=== PATIENT | female | born 1945 | race African-American/Black ===

== ENCOUNTER → 2020-08-13 09:21 | Outpatient (BNVA) | payer MEDICARE, SELFPAY | PROVIDERS: Visit Provider Advanced Practice Midwife ==

== ENCOUNTER 2020-08-22 09:49 | Outpatient (REF) | payer MEDICARE, SELFPAY | END 2020-08-22 09:50 | disposition home or self-care (01) | LOC: HO.LAB 09:49 | PROVIDERS: PCP Internal Medicine; Visit Provider Obstetrics & Gynecology | DX: L29.2 Pruritus vulvae (principal) | CPT/HCPCS: 56605; 88305; 88312 ==

== ENCOUNTER → 2020-09-04 09:24 | Outpatient (BNVA) | payer MEDICARE, SELFPAY | PROVIDERS: Visit Provider Obstetrics & Gynecology | DX: L90.0 Lichen sclerosus et atrophicus (principal) | CPT/HCPCS: Q3014 ==

== ENCOUNTER → 2020-11-19 09:07 | Outpatient (REF) | payer MEDICARE, SELFPAY ==
--- NOTE | 2020-11-19 09:18 | ECG_ITS ---
Test Reason : UNSTABLE ANGINA Blood Pressure : / mmHG Vent. Rate : 083 BPM Atrial Rate : 071 BPM P-R Int : 000 ms QRS Dur : 088 ms QT Int : 388 ms P-R-T Axes : 000 -41 060 degrees QTc Int : 455 ms Normal sinus rhythm with Premature atrial complexes Left axis deviation Abnormal ECG No previous ECGs available Referred By: Martha Gibbs Electronically Signed By:LANA SCHOFIELD MD
[2020-11-19 09:58] LABS: MANUAL DIFF FLAG SCAN; Mean Corpuscular Hemoglobin 22.8 pg (27.0-33.0); Mean Corpuscular Volume 75.2 fL (80-98); Neutrophils Absolute Auto 2.5 X10*3/uL (2.0-8.3); SCAN SMEAR FLAG 1
[2020-11-19 10:00] LABS: Basophils Percent Auto 0.4 % (0-2); Eosinophils Absolute Auto 0.4 X10*3/uL (0.0-0.4); Eosinophils Percent Auto 8.8 % (0-4); Hematocrit 37.9 % (37-47); Hemoglobin 11.5 g/dl (12.0-16.0); Imm Gran Abs Auto 0.01 X10*3/uL (0.00-0.03); Imm Gran Pct Auto 0.2 % (0.0-0.4); Lymphocytes Absolute Auto 1.6 X10*3/uL (1.2-4.9); Lymphocytes Percent Auto 32.7 % (20-40); Mean Corpuscular HGB Conc 30.3 g/dl (31.0-35.0); Monocytes Absolute Auto 0.3 X10*3/uL (0.1-1.2); Monocytes Percent Auto 6.5 % (2-11); Neutrophils Percent Auto 51.4 % (45-73); Red Blood Count 5.04 X10*6/uL (4.20-5.50); Red Cell Distribution Width 16.9 % (11.0-16.0); White Blood Count 4.8 X10*3/uL (4.8-10.8)
[2020-11-19 10:06] LABS: PLT ABN DIST 1
[2020-11-19 10:28] LABS: Alanine Aminotransferase 54 U/L (0-31); Albumin Level 4.1 g/dL (3.5-5.0); Alkaline Phosphatase 108 U/L (39-117); Anion Gap 11 (12-20); Aspartate Amino Transferase 82 U/L (5-31); Bilirubin Total 0.4 mg/dL (0.0-1.0); Blood Urea Nitrogen 9 mg/dL (9-16); Carbon Dioxide 28 mmol/L (22-29); Chloride 106 mmol/L (96-108); Cholesterol 127 mg/dL; Estimated Glomerular Filt Rate > 60; Glucose Fasting 124 mg/dL (60-99); HDL Cholesterol 39 mg/dL; LDL Cholesterol Calculated 74 mg/dl; Potassium 4.2 mmol/L (3.3-5.1); Sodium 141 mmol/L (135-145); Total Protein 7.2 g/dL (6.5-8.0); Triglycerides 74 mg/dL
[2020-11-19 10:53] LABS: Platelet Count 185 X10*3/uL (160-400)
[2020-11-19 10:54] LABS: SLIDE REVIEW VERIFIED
[2020-11-29 19:32] LABS: Vitamin D 25-OH, D2 <4 ng/mL; Vitamin D 25-OH, D3 31 ng/mL; Vitamin D 25-OH, Total 31 ng/mL (30-100)
== END ==
LOC: HO.CARD 09:07
PROVIDERS: PCP Internal Medicine; Visit Provider Internal Medicine
DX: I20.0 Unstable angina (principal); E55.9 Vitamin D deficiency, unspecified; K21.9 Gastro-esophageal reflux disease without esophagitis; D64.9 Anemia, unspecified; E78.5 Hyperlipidemia, unspecified
CPT/HCPCS: 36415; 80053; 80061; 82306; 85025; 93005

== ENCOUNTER → 2020-11-25 10:30 | Outpatient (BNVA) | payer MEDICARE, SELFPAY | PROVIDERS: PCP Internal Medicine; Visit Provider Obstetrics & Gynecology | DX: L90.0 Lichen sclerosus et atrophicus (principal) | CPT/HCPCS: 99212 ==

== ENCOUNTER 2020-12-17 08:44 | Outpatient (REF) | payer MEDICARE, SELFPAY | END 2020-12-17 08:45 | disposition home or self-care (01) | LOC: HO.LAB 08:44 | PROVIDERS: PCP Internal Medicine; Visit Provider Internal Medicine Pulmonary Disease | DX: Z91.09 Other allergy status, other than to drugs and biological substances (principal); J45.50 Severe persistent asthma, uncomplicated; K21.9 Gastro-esophageal reflux disease without esophagitis | CPT/HCPCS: 36415; 82785; 86003; 99202 ==

== ENCOUNTER 2021-01-22 08:53 | Outpatient (REF) | payer MEDICARE, SELFPAY ==
--- NOTE | 2021-01-22 17:17 | PFT_ITS ---
Forced vital capacity is normal. FEV1 is slightly decreased. LAX28-25 and MVV moderately decreased. Post bronchodilator therapy, there is a significant improvement in FEV1, ECX73-95, and MVV. Total lung capacity and residual volume are normal. Diffusion capacity normal. CONCLUSION: Mild obstructive airway disorder. Good response to bronchodilator therapy. These findings consistent with asthma/COPD overlap syndrome. Clinical correlation recommended. MD KIT Anne/BEAU / [id number]
== END 2021-01-22 08:54 | disposition home or self-care (01) ==
LOC: HO.RESP 08:53
PROVIDERS: PCP Internal Medicine; Visit Provider Internal Medicine Pulmonary Disease
DX: J45.50 Severe persistent asthma, uncomplicated (principal)
CPT/HCPCS: 94060; 94727; 94729

== ENCOUNTER 2021-01-28 08:45 | Outpatient (REF) | payer MEDICARE, SELFPAY ==
[2021-01-28 09:56] LABS: Basophils Percent Auto 0.1 % (0-2)
[2021-01-28 09:57] LABS: Hematocrit 34.6 % (37-47); Hemoglobin 10.7 g/dl (12.0-16.0); Imm Gran Abs Auto 0.08 X10*3/uL (0.00-0.03); Imm Gran Pct Auto 1.1 % (0.0-0.4); Lymphocytes Absolute Auto 1.4 X10*3/uL (1.2-4.9); Lymphocytes Percent Auto 19.6 % (20-40); Mean Corpuscular HGB Conc 30.9 g/dl (31.0-35.0); Mean Corpuscular Hemoglobin 22.4 pg (27.0-33.0); Mean Corpuscular Volume 72.4 fL (80-98); Monocytes Absolute Auto 0.3 X10*3/uL (0.1-1.2); Monocytes Percent Auto 3.7 % (2-11); Neutrophils Absolute Auto 5.5 X10*3/uL (2.0-8.3); Neutrophils Percent Auto 75.5 % (45-73); Platelet Count 190 X10*3/uL (160-400); Red Blood Count 4.78 X10*6/uL (4.20-5.50); Red Cell Distribution Width 16.7 % (11.0-16.0); White Blood Count 7.3 X10*3/uL (4.8-10.8)
[2021-01-28 10:27] LABS: Alanine Aminotransferase 35 U/L (0-31); Albumin Level 4.2 g/dL (3.5-5.0); Alkaline Phosphatase 117 U/L (39-117); Anion Gap 13 (12-20); Aspartate Amino Transferase 34 U/L (5-31); Bilirubin Total 0.6 mg/dL (0.0-1.0); Blood Urea Nitrogen 12 mg/dL (9-16); Calcium 9.6 mg/dL (8.4-10.2); Carbon Dioxide 26 mmol/L (22-29); Chloride 107 mmol/L (96-108); Cholesterol 132 mg/dL; Estimated Glomerular Filt Rate > 60; Glucose Fasting 156 mg/dL (60-99); HDL Cholesterol 47 mg/dL; LDL Cholesterol Calculated 77 mg/dl; Potassium 3.9 mmol/L (3.3-5.1); Sodium 142 mmol/L (135-145); Total Protein 7.3 g/dL (6.5-8.0); Triglycerides 43 mg/dL
[2021-01-28 10:47] LABS: Thyroid Stimulating Hormone 0.57 uIU/mL (0.32-4.0)
[2021-01-28 11:06] LABS: Creatinine Urine 76.78 mg/dL; Microalbum/Creatinine Ratio Ur 96.3 ug/mg cr
[2021-01-28 11:21] LABS: Folate 17.4 ng/mL (> or = 4.0); Vitamin B12 255 pg/mL (200-900)
[2021-02-01 17:11] LABS: Vitamin D 25-OH, D2 <4 ng/mL; Vitamin D 25-OH, D3 23 ng/mL; Vitamin D 25-OH, Total 23 ng/mL (30-100)
== END 2021-01-28 08:46 | disposition home or self-care (01) ==
LOC: HO.LAB 08:45
PROVIDERS: Absent Provider Internal Medicine; PCP Internal Medicine; Visit Provider Internal Medicine Pulmonary Disease
DX: J45.50 Severe persistent asthma, uncomplicated (principal); E11.9 Type 2 diabetes mellitus without complications; R41.89 Other symptoms and signs involving cognitive functions and awareness; D64.9 Anemia, unspecified; E78.5 Hyperlipidemia, unspecified; E55.9 Vitamin D deficiency, unspecified; Z91.09 Other allergy status, other than to drugs and biological substances
CPT/HCPCS: 36415; 80053; 80061; 82043; 82306; 82607; 82746; 84443; 85025; 99212

== ENCOUNTER → 2021-02-02 09:01 | Outpatient (BNVA) | payer MEDICARE, SELFPAY | PROVIDERS: Visit Provider Advanced Practice Midwife | DX: L90.0 Lichen sclerosus et atrophicus (principal) | CPT/HCPCS: 99212 ==

== ENCOUNTER → 2021-02-10 08:36 | Outpatient (BNVA) | payer MEDICARE, SELFPAY | PROVIDERS: PCP Internal Medicine; Visit Provider Internal Medicine Pulmonary Disease | DX: J45.50 Severe persistent asthma, uncomplicated (principal); Z91.09 Other allergy status, other than to drugs and biological substances | CPT/HCPCS: 99212 ==

== ENCOUNTER 2021-02-23 09:05 | Emergency (ER) | payer MEDICARE, SELFPAY ==
[2021-02-23 09:45] VITALS: BP 139/75; PULSE 69; RESP 19; TEMP 36.4; O2SAT 98; BMI 38.6
--- NOTE | 2021-02-23 10:01 | ED.SKABFB ---
HPI - Skin/Abscess/Foreign Bdy General Chief complaint: General Medical Stated complaint: ?insect bites all over Time Seen by Provider: 02/23/21 09:54 Source: patient Mode of arrival: ambulatory Limitations: no limitations History of Present Illness HPI narrative: 75-year-old female presenting with her [employer] with complaints of insect bites for the past month. Reports that she goes outside to feed pigeons and she believes that she is getting bit when she is feeding the birds/pigeons. She also reports she has 2 dogs at home. Although [employer] reports that the dog's appear to be fine no signs of fleas. The [employer] also had similar symptoms although he treated himself with a cream to his body he reports and it resolved all his symptoms. He reports that the house was fumigated although the patient continues to have itchiness and appears to have new bites due to she continues to go outside and she does not want to get rid of her dogs either. Denies any other symptoms complaints or concerns. MD complaint: insect bite/sting Onset (ago): month(s) (One month) Location: generalized Severity: moderate Quality: constant and pruritic Pain Consistency: constant Relieving factors: none Exacerbating factors: none Context: other (Possible insect bites) Associated symptoms: denies other symptoms Treatments prior to arrival: OTC topical medication and Benadryl Related Data Home Medications Medication Instructions Recorded Confirmed amlodipine 10 mg tablet 10 mg PO QAM 08/13/20 01/27/21 aspirin 81 mg tablet,delayed 81 mg PO DAILY 08/13/20 01/27/21 release calcium carbonate 500 mg calcium 0 mg PO 08/13/20 01/27/21 (1,250 mg) tablet paroxetine HCl 20 mg tablet 20 mg PO QAM 08/13/20 01/27/21 simvastatin 20 mg tablet 20 mg PO BEDTIME 08/13/20 01/27/21 alcohol swabs 0 pad TOPICAL 08/19/20 01/27/21 cholecalciferol (vitamin D3) 50 50 mcg PO DAILY 08/19/20 01/27/21 mcg (2,000 unit) capsule dulaglutide 1.5 mg/0.5 mL 1.5 mg SUBCUT QWEEK 08/19/20 01/27/21 subcutaneous pen injector lancets 33 gauge #100 ea 08/19/20 01/27/21 metformin 500 mg tablet 500 mg PO BID tab 08/29/20 01/27/21 Previous Rx's Medication Instructions Recorded nitroglycerin 0.4 mg sublingual 0.4 mg SUBLINGUAL Q5M PRN 30 Days 11/18/20 tablet (Nitrostat) #90 tab hydroxyzine HCl 10 mg tablet 10 mg PO BEDTIME #90 tab 11/25/20 fluticasone fur. 200 mcg-umeclid 1 inh INHALATION DAILY 30 Days #28 11/28/20 62.5 mcg-vilant 25 mcg ea inhalat.powder (Trelegy Ellipta) alprazolam 0.5 mg tablet 0.5 mg PO BEDTIME PRN 1 Days #1 tab 12/06/20 omeprazole 40 mg capsule,delayed 40 mg PO BID 30 Days #60 cap 12/17/20 release underpads 30 X 36 (Certainty #40 ea 01/02/21 Underpads) albuterol sulfate 2.5 mg INHALATION Q4H PRN 30 Days 01/19/21 #75 ml methylprednisolone 4 mg tablets in 4 mg PO PER PKG DIR 6 Days #21 ea 01/19/21 a dose pack betamethasone dipropionate 0.05 % 1 appl TOPICAL .twice weekly PRN 02/02/21 topical ointment #45 g acetaminophen 300 mg-codeine 15 mg 1 tab PO BID PRN 28 Days #56 tab 02/17/21 tablet diphenhydramine HCl 25 mg tablet 50 mg PO TID PRN #14 tab 02/23/21 (Benadryl Allergy) diphenhydramine-zinc acetate 1 1 appl TOPICAL TID #28.3 g 02/23/21 %-0.1 % topical cream (Benadryl Itch Stopping) permethrin 5 % topical cream 1 appl TOPICAL Q14D #60 g 02/23/21 Allergies Allergy/AdvReac Type Severity Reaction Status Date / Time acetaminophen [From Percocet] Allergy Intermediate rash Verified 02/10/21 08:50 oxycodone [From Percocet] Allergy Intermediate rash Verified 02/10/21 08:50 pollen extracts [POLLEN] Allergy Intermediate ASTHMA Verified 02/10/21 08:50 peanuts Allergy Mild Rash Uncoded 01/27/21 11:52 Review of Systems Review of Systems: Constitutional : No Fever, No Chills , no body aches, no recent illness Head/Face: No facial swelling, No facial redness ENT/Mouth : No oral/throat swelling, No Hoarseness, No Swallowing Difficulty Eyes: No Eye Pain, No Swelling, No Redness Cardiovascular : No Chest Pain, No SOB, No palpitations Respiratory : No Cough, No Sputum, No Wheezing, No Smoke Exposure, No Dyspnea Gastrointestinal : No Nausea, No Vomiting, No Diarrhea, No abdominal Pain Genitourinary : No Dysuria, No Urinary Frequency, No Hematuria Musculoskeletal : No joint pain, No Myalgias, No Joint Swelling Skin : No Skin Lesions, positive rash Neuro : No Weakness, No Numbness, No Headache, No dizziness, No tingling Psych : No Anxiety/Panic, No Depression Heme/Lymph: No Bruising, No Lymphadenopathy Endocrine : No Polyuria, No Polydipsia Denies changes in lotions or detergents. Denies new medications or any changes in medications. Denies drainage from rash. Denies any recent sick contacts or recent travel. Yes all other systems are reviewed and are negative PMFSH Past Medical History Attestation statement: The following information was validated with the patient. Medical History Asthma Asthma-COPD overlap syndrome Cognitive impairment Diabetes mellitus Dyslipidemia Essential hypertension Ganglion cyst of dorsum of left wrist GERD (gastroesophageal reflux disease) History of anxiety Hypovitaminosis D Memory loss Moderate asthma Obese Skin lesion Unstable angina Urinary incontinence Surgical History H/O knee surgery History of bladder surgery Previous back surgery Family History Family History Father Diabetes Hypertension Mother Diabetes Hypertension Social History Social History Housing: Apartment Alcohol intake: never Patient Tobacco Use Status: Never used Tobacco e-Cigarette/Vaping Use: Never Used Second Hand Smoke Exposure: No Advance Directives: No service: No Current occupational status: disabled Physical Exam Vital Signs: Vital Signs: Last Vital Signs Temp 97.5 F 02/23/21 09:45 Pulse 69 02/23/21 09:45 Resp 19 02/23/21 09:45 BP 139/75 02/23/21 09:45 Pulse Ox 98 02/23/21 09:45 Body Mass Index 38.6 vital signs have been reviewed as normal and appeared to be correct. Blood pressure hypertensive 147/76 Heart rate normal. Respiration rate normal. Temperature normal. Oxygen saturation normal. Appearance: Alert. Oriented X3. No acute distress. Head: Normal external exam. Normocephalic. Atraumatic. Eyes: PERRLA. EOMI. Conjunctiva and sclera normal. Eyelids normal. ENT: Pharynx normal. Uvula midline. Moist mucous membranes. Neck: Normal inspection. Neck supple. FROM. CVS: Normal heart rate and rhythm. Respiratory: No respiratory distress. Painless inspiration. Skin: Scattered throughout the patient's arm/chest/abdomen/back and lower extremities patient noted to have pruritic macular papular lesions consistent with bug bites. No signs of infection. No purulent drainage is noted. The rest of the Skin is warm and dry. Normal skin color. Normal skin turgor. No lacerations noted. Extremities: Extremities exhibit normal range of motion. Extremities nontender. Neuro: Oriented X 3. No motor deficit. No sensory deficit. Reflexes normal. Normal steady gait. No focal neuro deficits noted. Vascular: + radial pulses/+ 2 distal pedal pulses/+2 dorsalis pedis b/l. Normal cap refill. No cyanosis noted to upper extremity nails and lower extremity toes nails. Course Course Course Narrative: 75-year-old female presenting to the ED with some type of bug bites for the past month. Could be possibly fleas. She is requesting scabies treatment although explained to her that this is not scabies and possible bedbugs versus fleas. The treatment would be to fumigate the entire household and have her dogs evaluated as well and to stop feeding the birds/physicians outside. Will DC home with the treatment for scabies as patient is requesting along with symptomatic treatment also instructed her to have her house fumigated and to return if any new or worsening symptoms to follow up with primary care provider. Patient understands agrees with this plan [employer] at bedside. MDM - Skin/Abscess/Foreign Bdy Medical Records Attestation: I reviewed the patient's medical records. Discharge Plan Discharge Clinical Impression: Insect bite, Flea bite of multiple sites Patient Disposition: Home, Self-Care Instructions: Insect Bite or Sting (ED), Acute Rash (ED) Prescriptions: New permethrin 5 % cream 1 appl topical Q14D Qty: 60 RF: 2 diphenhydramine HCl [Benadryl Allergy] 25 mg tablet 50 mg PO TID PRN (Reason: itching) Qty: 14 RF: 0 Benadryl Itch Stopping 1-0.1 % cream 1 appl topical TID Qty: 28.3 RF: 0 No Action metformin 500 mg tablet 500 mg PO BID RF: 0 Trelegy Ellipta 200-62.5-25 mcg blister with device 1 inh inhalation DAILY 30 Days Qty: 28 RF: 6 alprazolam 0.5 mg tablet 0.5 mg PO BEDTIME PRN (Reason: sleep) 1 Days Qty: 1 RF: 0 (DME) underpads [Certainty Underpads] 30 X 36 pad See Rx Instructions .ROUTE .MEDSUPPLY Qty: 40 RF: 6 acetaminophen-codeine 300-15 mg tablet 1 tab PO BID PRN (Reason: pain) 28 Days Qty: 56 RF: 0 nitroglycerin [Nitrostat] 0.4 mg tablet, sublingual 0.4 mg sublingual Q5M PRN (Reason: chest pain) 30 Days Qty: 90 RF: 6 Trulicity 1.5 mg/0.5 mL pen injector 1.5 mg subcut QWEEK RF: 0 cholecalciferol (vitamin D3) 50 mcg (2,000 unit) capsule 50 mcg PO DAILY RF: 0 alcohol swabs Pads, Medicated 0 pad topical RF: 0 (DME) lancets 33 gauge misc See Rx Instructions ea Not Applicable BID Qty: 100 RF: 0 albuterol sulfate 2.5 mg /3 mL (0.083 %) solution for nebulization 2.5 mg inhalation Q4H PRN (Reason: bronchospasm) 30 Days Qty: 75 RF: 4 methylprednisolone 4 mg tablets,dose pack 4 mg PO PER PKG DIR 6 Days Qty: 21 RF: 0 amlodipine 10 mg tablet 10 mg PO QAM RF: 0 aspirin 81 mg tablet,delayed release (DR/EC) 81 mg PO DAILY RF: 0 simvastatin 20 mg tablet 20 mg PO BEDTIME RF: 0 paroxetine HCl 20 mg tablet 20 mg PO QAM RF: 0 calcium carbonate 500 mg calcium (1,250 mg) tablet 0 mg PO RF: 0 hydroxyzine HCl 10 mg tablet 10 mg PO BEDTIME Qty: 90 RF: 3 betamethasone dipropionate 0.05 % ointment 1 appl topical .twice weekly PRN (Reason: itching) Qty: 45 RF: 1 omeprazole 40 mg capsule,delayed release(DR/EC) 40 mg PO BID 30 Days Qty: 60 RF: 3 Referrals: Martha Cesar MD [Primary Care Provider] - 2 days Print Language: Honduran
== END 2021-02-23 10:40 | disposition home or self-care (01) ==
PROVIDERS: Emergency Provider Emergency Medicine; PCP Internal Medicine
DX: L29.9 Pruritus, unspecified (principal); S60.562A Insect bite (nonvenomous) of left hand, initial encounter; S60.561A Insect bite (nonvenomous) of right hand, initial encounter; W57.XXXA Bitten or stung by nonvenomous insect and other nonvenomous arthropods, initial encounter; Y93.9 Activity, unspecified; Y92.9 Unspecified place or not applicable; Y99.9 Unspecified external cause status; Z79.899 Other long term (current) drug therapy
CPT/HCPCS: 99283

== ENCOUNTER 2021-03-06 08:26 | Emergency (ER) | payer MEDICARE, SELFPAY ==
[2021-03-06 09:29] VITALS: BP 152/67; PULSE 72; RESP 16; TEMP 36.9; O2SAT 95; BMI 33.5
--- NOTE | 2021-03-06 09:33 | ED.GENADULT ---
HPI - General Adult General Chief complaint: Animal Bite Stated complaint: infected insect bite Time Seen by Provider: 03/06/21 09:24 Source: patient Mode of arrival: ambulatory Limitations: no limitations History of Present Illness HPI narrative: Patient comes emergency room complaining and itchy rash that seems to be worse in the morning. It has been going on for over a week. Patient denies fever chills, looks like insect bites, mostly in the abdomen and lower extremities, some in face, scant in the back Related Data Home Medications Medication Instructions Recorded Confirmed amlodipine 10 mg tablet 10 mg PO QAM 08/13/20 01/27/21 aspirin 81 mg tablet,delayed 81 mg PO DAILY 08/13/20 01/27/21 release calcium carbonate 500 mg calcium 0 mg PO 08/13/20 01/27/21 (1,250 mg) tablet paroxetine HCl 20 mg tablet 20 mg PO QAM 08/13/20 01/27/21 simvastatin 20 mg tablet 20 mg PO BEDTIME 08/13/20 01/27/21 alcohol swabs 0 pad TOPICAL 08/19/20 01/27/21 cholecalciferol (vitamin D3) 50 50 mcg PO DAILY 08/19/20 01/27/21 mcg (2,000 unit) capsule dulaglutide 1.5 mg/0.5 mL 1.5 mg SUBCUT QWEEK 08/19/20 01/27/21 subcutaneous pen injector lancets 33 gauge #100 ea 08/19/20 01/27/21 metformin 500 mg tablet 500 mg PO BID tab 08/29/20 01/27/21 Previous Rx's Medication Instructions Recorded nitroglycerin 0.4 mg sublingual 0.4 mg SUBLINGUAL Q5M PRN 30 Days 11/18/20 tablet (Nitrostat) #90 tab hydroxyzine HCl 10 mg tablet 10 mg PO BEDTIME #90 tab 11/25/20 fluticasone fur. 200 mcg-umeclid 1 inh INHALATION DAILY 30 Days #28 11/28/20 62.5 mcg-vilant 25 mcg ea inhalat.powder (Trelegy Ellipta) alprazolam 0.5 mg tablet 0.5 mg PO BEDTIME PRN 1 Days #1 tab 12/06/20 omeprazole 40 mg capsule,delayed 40 mg PO BID 30 Days #60 cap 12/17/20 release underpads 30 X 36 (Certainty #40 ea 01/02/21 Underpads) albuterol sulfate 2.5 mg INHALATION Q4H PRN 30 Days 01/19/21 #75 ml methylprednisolone 4 mg tablets in 4 mg PO PER PKG DIR 6 Days #21 ea 01/19/21 a dose pack betamethasone dipropionate 0.05 % 1 appl TOPICAL .twice weekly PRN 02/02/21 topical ointment #45 g acetaminophen 300 mg-codeine 15 mg 1 tab PO BID PRN 28 Days #56 tab 02/17/21 tablet diphenhydramine HCl 25 mg tablet 50 mg PO TID PRN #14 tab 02/23/21 (Benadryl Allergy) diphenhydramine-zinc acetate 1 1 appl TOPICAL TID #28.3 g 02/23/21 %-0.1 % topical cream (Benadryl Itch Stopping) permethrin 5 % topical cream 1 appl TOPICAL Q14D #60 g 02/23/21 sulfamethoxazole 800 1 tab PO BID 10 Days #20 tab 03/04/21 mg-trimethoprim 160 mg tablet (Bactrim DS) hydrocortisone 2.5 % topical cream 1 appl TOPICAL TID PRN #28 g 03/06/21 Allergies Allergy/AdvReac Type Severity Reaction Status Date / Time acetaminophen [From Percocet] Allergy Intermediate rash Verified 02/10/21 08:50 oxycodone [From Percocet] Allergy Intermediate rash Verified 02/10/21 08:50 pollen extracts [POLLEN] Allergy Intermediate ASTHMA Verified 02/10/21 08:50 peanuts Allergy Mild Rash Uncoded 01/27/21 11:52 Review of Systems Review of Systems: Constitutional : No Weight loss, No Fever, No Chills, No Night Sweats, No Fatigue, No Malaise ENT/Mouth : No Hearing loss, No Ear Pain, No Nasal Congestion, No Sinus Pain, No Hoarseness, No sore throat, No Rhinorrhea, No Swallowing Difficulty Eyes: No Eye Pain, No Swelling, No Redness, No Foreign Body, No Discharge, No Vision Changes Cardiovascular : No Chest Pain, No SOB, No Dyspnea on Exertion, No Orthopnea, No Edema, No Palpitations Respiratory : No Cough, No Sputum, No Wheezing, No Smoke Exposure, No Dyspnea Gastrointestinal : No Nausea, No Vomiting, No Diarrhea, No Constipation, No abdominal Pain, No Hematochezia, No Melena Genitourinary : no irregular bleeding, No Dysuria, No Urinary Frequency, No Hematuria, No Urinary Incontinence, No Urgency, No Flank Pain, No Urinary Flow Changes, No Hesitancy Musculoskeletal : No joint pain, No Myalgias, No Joint Swelling Skin : Multiple bug bites/skin lesions Neuro : No Weakness, No Numbness, No Paresthesias, No Loss of Consciousness, No Dizziness, No Headache Psych : No Anxiety/Panic, No Depression, No SI/HI/AH/VH, No Social Issues, Heme/Lymph: No Bruising, No Bleeding,No Lymphadenopathy Endocrine : No Polyuria, No Polydipsia, No Temperature Intolerance [facility] Past Medical History Medical History Asthma Asthma-COPD overlap syndrome Cognitive impairment Diabetes mellitus Dyslipidemia Essential hypertension Ganglion cyst of dorsum of left wrist GERD (gastroesophageal reflux disease) History of anxiety Hypovitaminosis D Memory loss Moderate asthma Obese Skin lesion Unstable angina Urinary incontinence Surgical History H/O knee surgery History of bladder surgery Previous back surgery Family History Family History Father Diabetes Hypertension Mother Diabetes Hypertension Social History Social History Housing: Apartment Alcohol intake: never Patient Tobacco Use Status: Never used Tobacco e-Cigarette/Vaping Use: Never Used Second Hand Smoke Exposure: No Advance Directives: No service: No Current occupational status: disabled Physical Exam Vital Signs: Vital Signs: Last Vital Signs Temp 98.4 F 03/06/21 09:29 Pulse 72 03/06/21 09:29 Resp 16 03/06/21 09:29 BP 152/67 H 03/06/21 09:29 Pulse Ox 95 03/06/21 09:29 Body Mass Index 33.5 Const: Other: Appearance: Alert. Oriented X3. No acute distress. Eyes: Pupils equal, round and reactive to light. ENT: Pharynx normal. Neck: Normal inspection. Neck supple. No lymph nodes noted. No crepitus CVS: Normal heart rate and rhythm. Pulses normal. Normal S1 and S2 Respiratory: No respiratory distress. Breath sounds normal. No Wheezing. No rales Abdomen: Soft and nontender. No rigidity. No distention. good BS x4 Skin: Skin warm and dry. Multiple skin bites in abdomen upper and lower extremities and face, likely bedbug bites. Extremities: No lower extremity edema. No lower extremity edema. No Lacerations. No Rash Neuro: Oriented X 3. No motor deficit. No sensory deficit. Moving all extermities. No slurred speech. Course Course Course Narrative: I discussed with the patient her family methods to get rid the bedbugs. Patient will be treated symptomatically Discharge Plan Discharge Clinical Impression: Bedbug bite with infection Patient Disposition: Home, Self-Care Instructions: Insect Bite or Sting (ED) Additional Instructions: Please follow-up with your primary care physician tomorrow. If you have any worsening or new symptoms, please return to the emergency room or call 911 Prescriptions: New hydrocortisone 2.5 % cream 1 appl topical TID PRN (Reason: itching) Qty: 28 RF: 0 No Action metformin 500 mg tablet 500 mg PO BID RF: 0 Trelegy Ellipta 200-62.5-25 mcg blister with device 1 inh inhalation DAILY 30 Days Qty: 28 RF: 6 alprazolam 0.5 mg tablet 0.5 mg PO BEDTIME PRN (Reason: sleep) 1 Days Qty: 1 RF: 0 (DME) underpads [Certainty Underpads] 30 X 36 pad See Rx Instructions .ROUTE .MEDSUPPLY Qty: 40 RF: 6 acetaminophen-codeine 300-15 mg tablet 1 tab PO BID PRN (Reason: pain) 28 Days Qty: 56 RF: 0 sulfamethoxazole-trimethoprim [Bactrim DS] 800-160 mg tablet 1 tab PO BID 10 Days Qty: 20 RF: 0 permethrin 5 % cream 1 appl topical Q14D Qty: 60 RF: 2 diphenhydramine HCl [Benadryl Allergy] 25 mg tablet 50 mg PO TID PRN (Reason: itching) Qty: 14 RF: 0 Benadryl Itch Stopping 1-0.1 % cream 1 appl topical TID Qty: 28.3 RF: 0 nitroglycerin [Nitrostat] 0.4 mg tablet, sublingual 0.4 mg sublingual Q5M PRN (Reason: chest pain) 30 Days Qty: 90 RF: 6 Trulicity 1.5 mg/0.5 mL pen injector 1.5 mg subcut QWEEK RF: 0 cholecalciferol (vitamin D3) 50 mcg (2,000 unit) capsule 50 mcg PO DAILY RF: 0 alcohol swabs Pads, Medicated 0 pad topical RF: 0 (DME) lancets 33 gauge misc See Rx Instructions ea Not Applicable BID Qty: 100 RF: 0 albuterol sulfate 2.5 mg /3 mL (0.083 %) solution for nebulization 2.5 mg inhalation Q4H PRN (Reason: bronchospasm) 30 Days Qty: 75 RF: 4 methylprednisolone 4 mg tablets,dose pack 4 mg PO PER PKG DIR 6 Days Qty: 21 RF: 0 amlodipine 10 mg tablet 10 mg PO QAM RF: 0 aspirin 81 mg tablet,delayed release (DR/EC) 81 mg PO DAILY RF: 0 simvastatin 20 mg tablet 20 mg PO BEDTIME RF: 0 paroxetine HCl 20 mg tablet 20 mg PO QAM RF: 0 calcium carbonate 500 mg calcium (1,250 mg) tablet 0 mg PO RF: 0 hydroxyzine HCl 10 mg tablet 10 mg PO BEDTIME Qty: 90 RF: 3 betamethasone dipropionate 0.05 % ointment 1 appl topical .twice weekly PRN (Reason: itching) Qty: 45 RF: 1 omeprazole 40 mg capsule,delayed release(DR/EC) 40 mg PO BID 30 Days Qty: 60 RF: 3
--- NOTE | 2021-03-06 10:02 | PC.NURSE ---
EVALUATED BY PROVIDER. PLAN IS FOR DC HOME WITH SCRIPTS. PT AGREEABLE TO PLAN.
== END 2021-03-06 10:04 | disposition home or self-care (01) ==
PROVIDERS: Emergency Provider Emergency Medicine; PCP Internal Medicine
DX: R21 Rash and other nonspecific skin eruption (principal); Z79.899 Other long term (current) drug therapy
CPT/HCPCS: 99283

== ENCOUNTER 2021-08-12 09:34 | Emergency (ER) | payer MEDICARE, SELFPAY ==
--- NOTE | ~2021-08-12 | US_ITS ---
EXAMINATION: US VENOUS ULTRASOUND WITH DOPPLER LOWER EXTREMITY, RIGHT CLINICAL INFORMATION: Right lower extremity pain COMPARISON: None TECHNIQUE: Ultrasound of the deep veins is performed from the hip to the calf with compression sonography and color and pulse Doppler assessment. Spectral analysis with color-flow imaging is performed. FINDINGS: There is normal venous compression and respiratory variation and augmented flow. The visualized common femoral vein, superficial femoral vein, profunda femoral vein, popliteal vein, and the trifurcation region shows no evidence of deep venous thrombosis. The mid and the distal right superficial femoral vein could not be compressed due to discomfort are patent. There is no significant popliteal fossa cyst. There are multiple lymph nodes seen in the right groin with largest measuring 2.0 x 0.8 cm. There is normal echogenic medulla and hypoechoic cortex. If the patient's symptoms persist, followup ultrasound in 5 days 7 days might be of value to exclude proximal propagation from a non-visualized calf vein. US/US venous duplex LE RT IMPRESSION: No DVT demonstrated in the right lower extremity. The right cerebral femoral mid and distal veins could not be compressed due to patient discomfort and pain heart they are patent. Multiple lymph nodes largest one measuring 2.0 cm. It has normal echogenic medulla and hypoechoic cortex
--- NOTE | ~2021-08-12 | CT_ITS ---
EXAMINATION: CT ABDOMEN AND PELVIS WITH CONTRAST CLINICAL INFORMATION: Left lower quadrant pain COMPARISON: Previous abdominal ultrasound December [address] of the pelvis June 2015 TECHNIQUE: Multidetector volumetric images were obtained from the superior aspect of the liver through the pubic symphysis following administration 85 mL of Omnipaque 350 intravenous contrast. Sagittal and coronal reformatted images were obtained on the technologist's workstation. Oral contrast: Yes This CT examination was performed using dose optimization techniques as appropriate, variously including the following: *Automated exposure control *Adjustment of mA and/or kV according to patient size (this includes techniques or standardized protocols for targeted exams where dose is matched to indication/reason for exam; i.e. extremities or head) *Use of iterative reconstruction technique DLP: 649 mGy-cm FINDINGS: LUNG BASES: The heart is enlarged. The lung bases are clear. LIVER, GALLBLADDER, AND BILIARY TREE: The left lobe and caudate lobe are prominent. The contour of the liver is slightly irregular questionable for mild cirrhosis. There is a 1 cm low-attenuation lesion compatible with a cyst in the right lobe of liver. There is a 6 mm low-attenuation lesion in the lateral segment the left lobe axial image 22 series 3. This is difficult to characterize due to small size. No other focal liver lesion is seen. There is no intra or extrahepatic biliary duct dilatation. The gallbladder is normal. PANCREAS: Unremarkable. SPLEEN: Unremarkable. ADRENAL GLANDS: Unremarkable. KIDNEYS AND URETERS: There are areas of bilateral renal cortical thinning or scarring, right greater than left. There are small bilateral renal stones. No hydronephrosis BLADDER: Unremarkable. GASTROINTESTINAL TRACT: There is diverticulosis of the colon. Small and large bowel is otherwise unremarkable. The appendix is unremarkable. The stomach is unremarkable. ABDOMINAL WALL: No significant hernia is appreciated. LYMPH NODES: Normal. VASCULAR: Unremarkable. PELVIC VISCERA: The uterus there is dependent removed. No pelvic mass. OSSEOUS STRUCTURES: There are postsurgical changes posterior fusion hardware and interpedicular screws from L4 to S1. The right L5 screw is broken. There is mild anterior subluxation of L5 with respect to S1 measuring 5 mm. These findings are unchanged from June [address]/CT abdomen pelvis w con IMPRESSION: Diverticulosis of the colon. No evidence of diverticulitis. Bilateral renal cortical thinning or scarring. Small bilateral renal stones. No hydronephrosis. Question mild cirrhotic changes of the liver. 2 small liver lesions larger compatible with a cyst. The smaller lesion is difficult to characterize with certainty. This could be better evaluated with liver MRI. Stable postsurgical changes to the lower lumbar spine from June [address] Fleischner guidelines were followed.
[2021-08-12 09:48] VITALS: BP 145/81; PULSE 66; RESP 16; TEMP 36.6; O2SAT 98; BMI 31.8
--- NOTE | 2021-08-12 10:25 | ED.GENADULT ---
HPI - General Adult General Chief complaint: Extremity Problem <ALONSO Brownlee - Last Filed: 08/12/21 13:32> Stated complaint: feet pain/swollen <ALONSO Brownlee Last Filed: 08/12/21 13:32> Time Seen by Provider: 08/12/21 09:39 <ALONSO Brownlee Last Filed: 08/12/21 13:32> Source: patient and family (daughter at bedside) <ALONSO Brownlee Last Filed: 08/12/21 13:32> Mode of arrival: ambulatory <ALONSO Brownlee Last Filed: 08/12/21 13:32> Limitations: language barrier <ALONSO Brownlee Last Filed: 08/12/21 13:32> History of Present Illness HPI narrative: 75-year-old Upper Sorbian-speaking female presents with right lower extremity bumps that are painful, and left lower abdominal pain. Daughter states patient has had the bumps on her right lower leg for the past 3 days, and they are painful. They are worse in the afternoon, and her right leg gets swollen and red in the afternoon. No exposure to insects, patient does not really go outside. Daughter also says that patient has had fever at home for the last 2 days. No fever today. Patient also endorses left lower sided abdominal pain for the last month. Patient has had no nausea, no vomiting, no diarrhea. Patient's last bowel movement was last night and was normal, nothing dark, tarry, or bloody. Patient does endorse a history of constipation, but has been having regular bowel movements. States her belly pain is now a 5/10, it is worse at night and is a 7/10 at night. Patient states she has had a headache for the last 2 days, no headache now. No blurry vision, no neck pain, no unilateral weakness or numbness. No dysuria or hematuria. Daughter shows me a number of corticosteroid creams that patient has been prescribed for what daughter says is an allergic reaction. Patient has numerous hemosiderin deposits on her abdomen and legs. Patient got 2 doses of Moderna vaccine for COVID. <ALONSO Brownlee Last Filed: 08/12/21 13:32> Related Data Home medications: Home Medications Medication Instructions Recorded Confirmed amlodipine 10 mg tablet 10 mg PO QAM 08/13/20 07/28/21 aspirin 81 mg tablet,delayed 81 mg PO DAILY 08/13/20 07/28/21 release calcium carbonate 500 mg calcium 0 mg PO 08/13/20 07/28/21 (1,250 mg) tablet paroxetine HCl 20 mg tablet 20 mg PO QAM 08/13/20 07/28/21 simvastatin 20 mg tablet 20 mg PO BEDTIME 08/13/20 07/28/21 alcohol swabs 0 pad TOPICAL 08/19/20 07/28/21 cholecalciferol (vitamin D3) 50 50 mcg PO DAILY 08/19/20 07/28/21 mcg (2,000 unit) capsule dulaglutide 1.5 mg/0.5 mL 1.5 mg SUBCUT QWEEK 08/19/20 07/28/21 subcutaneous pen injector lancets 33 gauge #100 ea 08/19/20 07/28/21 metformin 500 mg tablet 500 mg PO BID tab 08/29/20 07/28/21 Previous Rx's Medication Instructions Recorded nitroglycerin 0.4 mg sublingual 0.4 mg SUBLINGUAL Q5M PRN 30 Days 11/18/20 tablet (Nitrostat) #90 tab hydroxyzine HCl 10 mg tablet 10 mg PO BEDTIME #90 tab 11/25/20 fluticasone fur. 200 mcg-umeclid 1 inh INHALATION DAILY 30 Days #28 11/28/20 62.5 mcg-vilant 25 mcg ea inhalat.powder (Trelegy Ellipta) underpads 30 X 36 (Certainty #40 ea 01/02/21 Underpads) albuterol sulfate 2.5 mg (3 mL) INHALATION Q4H PRN 01/19/21 30 Days #75 ml diphenhydramine-zinc acetate 1 1 appl TOPICAL TID #28.3 g 02/23/21 %-0.1 % topical cream (Benadryl Itch Stopping) hydrocortisone 2.5 % topical cream 1 appl TOPICAL TID PRN #28 g 03/06/21 folic acid 1 mg tablet 1 mg PO DAILY 90 Days #90 tab 03/25/21 omeprazole 40 mg capsule,delayed 40 mg PO BID 30 Days #60 cap 04/10/21 release betamethasone dipropionate 0.05 % 1 appl TOPICAL .twice weekly PRN 04/13/21 topical ointment #45 g cyanocobalamin (vitamin B-12) 1,000 mcg PO DAILY 90 Days #90 tab 07/04/21 1,000 mcg tablet acetaminophen 300 mg-codeine 15 mg 1 tab PO BID PRN 28 Days #56 tab 08/05/21 tablet ibuprofen 600 mg tablet 600 mg PO Q6H 14 Days #56 tab 08/12/21 <ALONSO Brownlee Last Filed: 08/12/21 13:32> Allergies/adverse reactions: Allergies Allergy/AdvReac Type Severity Reaction Status Date / Time acetaminophen [From Percocet] Allergy Intermediate rash Verified 07/28/21 09:09 oxycodone [From Percocet] Allergy Intermediate rash Verified 07/28/21 09:09 pollen extracts [POLLEN] Allergy Intermediate ASTHMA Verified 07/28/21 09:09 corn Allergy Unknown Verified 08/12/21 09:51 fish derived [fish] Allergy Unknown Verified 08/12/21 09:51 peanuts Allergy Mild Rash Uncoded 07/28/21 09:09 <ALONSO Brownlee Last Filed: 08/12/21 13:32> Review of Systems Constitutional: Constitutional: Denies body ache(s), Denies chills, Denies fatigue, Reports fever(s), Reports headache(s) (not currently), Denies malaise and Denies weakness <ALONSO Brownlee Last Filed: 08/12/21 13:32> Eyes: Eyes: Denies blurry vision and Denies diplopia <ALONSO Brownlee Last Filed: 08/12/21 13:32> ENT: Denies vertigo, Denies dizziness, Denies otalgia, Reports headache(s) (not currently), Denies post nasal drip and Denies sore throat <ALONSO Brownlee Last Filed: 08/12/21 13:32> Cardiovascular: Cardiovascular: Denies chest pain, Denies syncope, Denies leg edema, Denies lightheadedness, Denies Loss of Consciousness, Denies palpitations and Denies dyspnea <ALONSO Brownlee Last Filed: 08/12/21 13:32> Respiratory: Respiratory: Denies chest congestion, Denies cough and Denies dyspnea <ALONSO Brownlee Last Filed: 08/12/21 13:32> Gastrointestinal: Gastrointestinal: Reports abdominal pain, Denies melena, Denies hematochezia, Denies coffee ground emesis, Denies constipation, Denies heartburn, Denies diarrhea, Denies nausea, Denies vomiting and Denies hematemesis <ALONSO Brownlee - Last Filed: 08/12/21 13:32> Genitourinary: Genitourinary: Denies hematuria, Denies dysuria, Denies pelvic pain, Denies urinary hesitancy and Denies urinary urgency <ALONSO Brownlee - Last Filed: 08/12/21 13:32> Musculoskeletal: Comments: right calf pain <ALONSO Brownlee Last Filed: 08/12/21 13:32> Integumentary/Breasts: Skin/Breast: Reports erythema, Reports skin pain and Reports skin swelling <ALONSO Brownlee Last Filed: 08/12/21 13:32> Neurologic: Denies Abnormal speech present, Denies vertigo, Denies dizziness, Denies syncope, Reports headache(s) (not currently), Denies Sensory deficit (Neuro) and Denies weakness <ALONSO Brownlee Last Filed: 08/12/21 13:32> Psychiatric: Psychiatric: Denies anxiety and Denies depression <ALONSO Brownlee Last Filed: 08/12/21 13:32> Endocrine: Endocrine: Denies fatigue and Denies palpitations <ALONSO Brownlee Last Filed: 08/12/21 13:32> PMFSH Past Medical History Medical History: Medical History Abdominal pain Allergic reaction Asthma Asthma-COPD overlap syndrome Cognitive impairment Diabetes mellitus Dyslipidemia Essential hypertension Ganglion cyst of dorsum of left wrist GERD (gastroesophageal reflux disease) History of anxiety Hypovitaminosis D Memory loss Mild recurrent major depression Moderate asthma Obese Skin lesion Unstable angina Urinary incontinence <ALONSO Brownlee Last Filed: 08/12/21 13:32> Surgical History: Surgical History H/O knee surgery History of bladder surgery Previous back surgery <ALONSO Brownlee Last Filed: 08/12/21 13:32> Family History Family History: Family History Father Diabetes Hypertension Mother Diabetes Hypertension <ALONSO Brownlee - Last Filed: 08/12/21 13:32> Social History Social History: Social History Housing: Apartment Alcohol intake: never Patient Tobacco Use Status: Never used Tobacco e-Cigarette/Vaping Use: Never Used Second Hand Smoke Exposure: No Use of substances other than those prescribed or required for medical reasons: No Advance Directives: No Advance Directives Information Provided: No service: No Current occupational status: disabled <ALONSO Brownlee - Last Filed: 08/12/21 13:32> Physical Exam ED Vital Signs: Vital Signs - 24 hr 08/12/21 09:48 08/12/21 10:28 Temperature 97.8 F Pulse Rate 66 67 Respiratory Rate 16 20 Blood Pressure 145/81 H 136/75 Pulse Oximetry 98 98 BMI result Body Mass Index 31.8 <ALONSO Brownlee - Last Filed: 08/12/21 13:32> Vital Signs - 24 hr 08/12/21 09:48 08/12/21 10:28 Temperature 97.8 F Pulse Rate 66 67 Respiratory Rate 16 20 Blood Pressure 145/81 H 136/75 Pulse Oximetry 98 98 BMI result Body Mass Index 31.8 <Ady Alonso MD - Last Filed: 08/12/21 11:04> Const General: no acute distress, alert and awake <ALONSO Brownlee - Last Filed: 08/12/21 13:32> Nutritional Appearance: obese centrally obese <ALONSO Brownlee - Last Filed: 08/12/21 13:32> Orientation/consciousness: patient oriented x3 <ALONSO Brownlee - Last Filed: 08/12/21 13:32> Limitations: language barrier <ALONSO Brownlee - Last Filed: 08/12/21 13:32> HENMT Head: Yes normal to inspection, Yes No palpable skull fracture present, Yes normocephalic and Yes atraumatic <ALONSO Brownlee - Last Filed: 08/12/21 13:32> Ears: hearing grossly normal bilaterally <ALONSO Brownlee - Last Filed: 08/12/21 13:32> General nose exam: Normal external nose present <Nan Ozuna [facility] Last Filed: 08/12/21 13:32> Face and sinus: Yes normal facial exam <Nan Ozuna [facility] Last Filed: 08/12/21 13:32> Mouth: mucous membranes dry <Nan Malcolmmyrna [facility] Last Filed: 08/12/21 13:32> Throat: Yes posterior oropharynx normal <Nan Ozuna [facility] Last Filed: 08/12/21 13:32> Eyes Eyelids: Yes eyelids normal <Naneileen Ozuna [facility] Last Filed: 08/12/21 13:32> Sclerae: sclerae normal <Nan Ozuna [facility] Last Filed: 08/12/21 13:32> Pupils: Equal, round and reactive pupils present <Nan Yunmyrna [facility] Last Filed: 08/12/21 13:32> EOM: EOMs intact bilaterally and No Nystagmus present <Nan Ozuna [facility] Last Filed: 08/12/21 13:32> Neck Neck: Yes normal visual inspection, Yes full ROM, Yes no lymphadenopathy, Yes no meningeal signs, Yes trachea midline and Yes supple <Nan Ozuna [facility] Last Filed: 08/12/21 13:32> Resp Effort & Inspection: normal respiratory effort and able to speak in complete sentences <Nan Ozuna [facility] Last Filed: 08/12/21 13:32> Auscultation: clear to auscultation bilaterally, no crackles, no rales, no rhonchi and no wheezes <Nan Ozuna [facility] Last Filed: 08/12/21 13:32> GI Inspection: Yes Abdominal panniculus present and Yes obesity <aNn Ozuna [facility] Last Filed: 08/12/21 13:32> Palpation (GI): Soft to palpation, not firm, Tenderness to palpation present (GI) in the LLQ and Guarding due to palpation present (GI) in the LLQ <Nan Ozuna [facility] Last Filed: 08/12/21 13:32> Percussion: Yes normal to percussion <Nan Ozuna [facility] Last Filed: 08/12/21 13:32> Auscultation: normal bowel sounds <Nan Ozuna [place] - Last Filed: 08/12/21 13:32> Rectal Exam - Female: deferred <Nan Ozuna [place] - Last Filed: 08/12/21 13:32> General: Yes no CVA tenderness <Nan Ozuna [place] - Last Filed: 08/12/21 13:32> Back/Spine/Pelvis Back: no CVA tenderness <Nan Ozuna [place] - Last Filed: 08/12/21 13:32> Skin Other: Erythematous tender nodules on smith and posterior calf of right lower extremity Patient also has numerous hemosiderin deposits on her legs and belly <Nan Ozuna [place] - Last Filed: 08/12/21 13:32> Neuro General: patient oriented x3 and no meningeal signs <Nan Ozuna [place] - Last Filed: 08/12/21 13:32> Cranial nerves: Yes CN's II-XII intact bilaterally, Yes Facial sensation intact/muscles of mastication intact, Yes Equal, round and reactive pupils present, Yes Bilaterally intact EOM present, Yes Nystagmus not present, Yes Normal facial strength present, Yes Midline tongue present, Yes Ability to bilaterally rotate head present, Yes Ability to bilaterally elevate shoulders present and No Nystagmus present <Nan Ozuna [place] - Last Filed: 08/12/21 13:32> Cognition (Neuro): normal cognition <Nan Ozuna [place] - Last Filed: 08/12/21 13:32> Speech: No Abnormal speech present <Nan Ozuna [place] - Last Filed: 08/12/21 13:32> Gait exam (Neuro): Antalgic gait present <Nan Ozuna [place] - Last Filed: 08/12/21 13:32> Motor exam (neuro): 5/5 motor strength present throughout <Nan Ozuna [place] - Last Filed: 08/12/21 13:32> Sensory Exam: No Sensory deficit (Neuro) <Nan Ozuna [place] - Last Filed: 08/12/21 13:32> Deep tendon reflexes (DTR's): Right patellar reflex intensity grade: 1+ and Left patellar reflex intensity grade: 1+ <Nan Ozuna [place] - Last Filed: 08/12/21 13:32> Pupils: Normal pupillary reactivity/response: bilateral <ALONSO Brownlee - Last Filed: 08/12/21 13:32> Extrem Right lower extremity: full ROM, normal capillary refill and lower leg Details: erythema Location: of the distal lower leg, tenderness, palpable cord and other (erythemtous nodules anterior smith) <ALONSO Brownlee - Last Filed: 08/12/21 13:32> Psych Appearance: grossly normal <ALONSO Brownlee Last Filed: 08/12/21 13:32> Mental Status: mental status grossly normal <ALONSO Brownlee Last Filed: 08/12/21 13:32> Speech and movement: Normal speech and movement present <ALONSO Brownlee Last Filed: 08/12/21 13:32> Affect: Anxious affect present <ALONSO Brownlee Last Filed: 08/12/21 13:32> Attitude: cooperative <ALONSO Brownlee Last Filed: 08/12/21 13:32> Course Course Course Narrative: 75-year-old Upper Sorbian-speaking woman with past medical history of diabetes, COPD, asthma, hypertension, hyperlipidemia, and depression, presents for painful bumps on her right leg and left lower quadrant pain. On exam, patient has scattered bumps right lower leg, and a 2 inch superficial palpable cord in her right medial posterior calf. Question erythema nodosum, as these bumps are erythematous tender nodules. Patient has had a fever, no history of IBS. Concerned also for superficial thrombophlebitis On abdominal exam patient is tender and guarding and left lower quadrant. Patient is allergic to oxycodone and Tylenol. Will give Toradol for pain, will get labs including inflammatory markers, urine, will CT abdomen pelvis, and ultrasound right leg to rule out DVT and investigate possible superficial thrombophlebitis. <ALONSO Brownlee Last Filed: 08/12/21 13:32> Reevaluation(s) Reevaluation #1: Painful, nodular, violacious, tender lesion on anterior smith consistent with erythema nodosum, and question of superficial cord on calf. Will obtain US of leg and further outpatient workup <Ady Alonso MD - Last Filed: 08/12/21 11:04> Time: 11:04 <Ady Alonso MD - Last Filed: 08/12/21 11:04> Reevaluation #2: Superficial veins could not be compressed due to patient discomfort, US ruled out DVT. CT shows no diverticulitis, does show liver lesions, which can be evaluated by outpatient MRI Labs are remarkable for mildly increased inflammatory markers;, ESR is 28, CRP 1.07. Patient has mildly increased liver function tests, H&H is 10.4 and 34.3, which is the same since January 2021. Diagnosis is abdominal pain, erythema nodosum, superficial thrombophlebitis. Will treat with NSAIDs, warm soaks, referred to Dermatology,, have patient follow up on liver lesions with PCP. US/US venous duplex LE RT IMPRESSION: No DVT demonstrated in the right lower extremity. The right cerebral femoral mid and distal veins could not be compressed due to patient discomfort and pain heart they are patent. Multiple lymph nodes largest one measuring 2.0 cm. It has normal echogenic medulla and hypoechoic cortex CT/CT abdomen pelvis w con IMPRESSION: Diverticulosis of the colon. No evidence of diverticulitis. Bilateral renal cortical thinning or scarring. Small bilateral renal stones. No hydronephrosis. Question mild cirrhotic changes of the liver. 2 small liver lesions larger compatible with a cyst. The smaller lesion is difficult to characterize with certainty. This could be better evaluated with liver MRI. Stable postsurgical changes to the lower lumbar spine from June [address] <ALONSO Brownlee - Last Filed: 08/12/21 13:32> Medical Decision Making Lab Data Result diagrams: : 08/12/21 10:43 08/12/21 10:43 <ALONSO Brownlee - Last Filed: 08/12/21 13:32> Labs: Lab Results 08/12/21 08/12/21 08/12/21 Range/Units 10:43 10:43 10:43 WBC 5.6 (4.8-10.8) X10*3/uL RBC 4.77 (4.20-5.50) X10*6/uL Hgb 10.4 L (12.0-16.0) g/dl Hct 34.3 L (37.0-47.0) % MCV 71.9 L (80.0-98.0) fL MCH 21.8 L (27.0-33.0) pg MCHC 30.3 L (31.0-35.0) g/dl RDW 17.3 H (11.0-16.0) % Plt Count 190 (160-400) X10*3/uL MPV Not Reportable Immature Gran % (Auto) 0.4 (0.0-0.4) % Neut % (Auto) 55.3 (45-73) % Lymph % (Auto) 29.8 (20-40) % Smyth % (Auto) 7.9 (2-11) % Eos % (Auto) 6.1 H (0-4) % Baso % (Auto) 0.5 (0-2) % Lymph # (Auto) 1.7 (1.2-4.9) X10*3/uL Smyth # (Auto) 0.4 (0.1-1.2) X10*3/uL Eos # (Auto) 0.3 (0.0-0.4) X10*3/uL Baso # (Auto) 0.0 (0.0-0.2) X10*3/uL Abs Immat Gran (auto) 0.02 (0.00-0.03) X10*3/uL Absolute Neuts (auto) 3.1 (2.0-8.3) x10*3/uL Absolute Nucleated RBC 0.000 (0.0-0.012) X10*3/uL Nucleated RBC % (auto) 0.0 (0.0-0.2) /100WBC ESR 28 H (0-20) MM/HR Sodium 141 (135-145) mmol/L Potassium 4.0 (3.3-5.1) mmol/L Chloride 106 (96-108) mmol/L Carbon Dioxide 27 (22-29) mmol/L Anion Gap 12 (12-20) BUN 9 (9-16) mg/dL Creatinine 0.72 (0.5-1.4) mg/dL Estim Creat Clear Calc 68.2 Estimated GFR > 60 Random Glucose 146 H (60-115) mg/dL Calcium 9.3 (8.4-10.2) mg/dL Total Bilirubin 0.5 (0.0-1.0) mg/dL AST 41 H (5-31) U/L ALT 28 (0-31) U/L Alkaline Phosphatase 131 H (39-117) U/L C-Reactive Protein 1.07 H (< or = 0.50) mg/dL Total Protein 7.4 (6.5-8.0) g/dL Albumin 4.1 (3.5-5.0) g/dL Lipase 21 (8-78) U/L Urine Color Urine Appearance Urine pH (5.0-8.0) Ur Specific [place] (1.005-1.025) Urine Protein (NEG-TRACE) MG/DL Urine Glucose (UA) (NEG) MG/DL Urine Ketones (NEG) MG/DL Urine Blood (NEG) Urine Nitrite (NEG) Ur Leukocyte Esterase (NEG) Urine RBC (0) /HPF Urine WBC (0-4) /HPF Ur Squamous Epith Cells /LPF Urine Bacteria /LPF COVID-19 ([facility]) (Negative) COVID-19 Clin Com S. pyogenes GrpA SMOOTH (Negative) 08/12/21 08/12/21 08/12/21 Range/Units 10:43 10:43 11:56 WBC (4.8-10.8) X10*3/uL RBC (4.20-5.50) X10*6/uL Hgb (12.0-16.0) g/dl Hct (37.0-47.0) % MCV (80.0-98.0) fL MCH (27.0-33.0) pg MCHC (31.0-35.0) g/dl RDW (11.0-16.0) % Plt Count (160-400) X10*3/uL MPV Immature Gran % (Auto) (0.0-0.4) % Neut % (Auto) (45-73) % Lymph % (Auto) (20-40) % Smyth % (Auto) (2-11) % Eos % (Auto) (0-4) % Baso % (Auto) (0-2) % Lymph # (Auto) (1.2-4.9) X10*3/uL Smyth # (Auto) (0.1-1.2) X10*3/uL Eos # (Auto) (0.0-0.4) X10*3/uL Baso # (Auto) (0.0-0.2) X10*3/uL Abs Immat Gran (auto) (0.00-0.03) X10*3/uL Absolute Neuts (auto) (2.0-8.3) x10*3/uL Absolute Nucleated RBC (0.0-0.012) X10*3/uL Nucleated RBC % (auto) (0.0-0.2) /100WBC ESR (0-20) MM/HR Sodium (135-145) mmol/L Potassium (3.3-5.1) mmol/L Chloride (96-108) mmol/L Carbon Dioxide (22-29) mmol/L Anion Gap (12-20) BUN (9-16) mg/dL Creatinine (0.5-1.4) mg/dL Estim Creat Clear Calc Estimated GFR Random Glucose (60-115) mg/dL Calcium (8.4-10.2) mg/dL Total Bilirubin (0.0-1.0) mg/dL AST (5-31) U/L ALT (0-31) U/L Alkaline Phosphatase (39-117) U/L C-Reactive Protein (< or = 0.50) mg/dL Total Protein (6.5-8.0) g/dL Albumin (3.5-5.0) g/dL Lipase (8-78) U/L Urine Color YELLOW Urine Appearance CLEAR Urine pH 7.0 (5.0-8.0) Ur Specific [place] 1.010 (1.005-1.025) Urine Protein NEG (NEG-TRACE) MG/DL Urine Glucose (UA) NEG (NEG) MG/DL Urine Ketones NEG (NEG) MG/DL Urine Blood TRACE (NEG) Urine Nitrite NEG (NEG) Ur Leukocyte Esterase NEG (NEG) Urine RBC 1-4 (0) /HPF Urine WBC 0-2 (0-4) /HPF Ur Squamous Epith Cells 2+ /LPF Urine Bacteria 1+ /LPF COVID-19 ([facility]) Negative (Negative) COVID-19 Clin Com See Note S. pyogenes GrpA SMOOTH Negative (Negative) <ALONSO Brownlee - Last Filed: 08/12/21 13:32> Lab Results 03/08/12/21 08/12/21 Range/Units 10:43 10:43 10:43 WBC 5.6 (4.8-10.8) X10*3/uL RBC 4.77 (4.20-5.50) X10*6/uL Hgb 10.4 L (12.0-16.0) g/dl Hct 34.3 L (37.0-47.0) % MCV 71.9 L (80.0-98.0) fL MCH 21.8 L (27.0-33.0) pg MCHC 30.3 L (31.0-35.0) g/dl RDW 17.3 H (11.0-16.0) % Plt Count 190 (160-400) X10*3/uL MPV Not Reportable Immature Gran % (Auto) 0.4 (0.0-0.4) % Neut % (Auto) 55.3 (45-73) % Lymph % (Auto) 29.8 (20-40) % Smyth % (Auto) 7.9 (2-11) % Eos % (Auto) 6.1 H (0-4) % Baso % (Auto) 0.5 (0-2) % Lymph # (Auto) 1.7 (1.2-4.9) X10*3/uL Smyth # (Auto) 0.4 (0.1-1.2) X10*3/uL Eos # (Auto) 0.3 (0.0-0.4) X10*3/uL Baso # (Auto) 0.0 (0.0-0.2) X10*3/uL Abs Immat Gran (auto) 0.02 (0.00-0.03) X10*3/uL Absolute Neuts (auto) 3.1 (2.0-8.3) x10*3/uL Absolute Nucleated RBC 0.000 (0.0-0.012) X10*3/uL Nucleated RBC % (auto) 0.0 (0.0-0.2) /100WBC ESR 28 H (0-20) MM/HR Sodium 141 (135-145) mmol/L Potassium 4.0 (3.3-5.1) mmol/L Chloride 106 (96-108) mmol/L Carbon Dioxide 27 (22-29) mmol/L Anion Gap 12 (12-20) BUN 9 (9-16) mg/dL Creatinine 0.72 (0.5-1.4) mg/dL Estim Creat Clear Calc 68.2 Estimated GFR > 60 Random Glucose 146 H (60-115) mg/dL Calcium 9.3 (8.4-10.2) mg/dL Total Bilirubin 0.5 (0.0-1.0) mg/dL AST 41 H (5-31) U/L ALT 28 (0-31) U/L Alkaline Phosphatase 131 H (39-117) U/L C-Reactive Protein 1.07 H (< or = 0.50) mg/dL Total Protein 7.4 (6.5-8.0) g/dL Albumin 4.1 (3.5-5.0) g/dL Lipase 21 (8-78) U/L Urine Color Urine Appearance Urine pH (5.0-8.0) Ur Specific [place] (1.005-1.025) Urine Protein (NEG-TRACE) MG/DL Urine Glucose (UA) (NEG) MG/DL Urine Ketones (NEG) MG/DL Urine Blood (NEG) Urine Nitrite (NEG) Ur Leukocyte Esterase (NEG) Urine RBC (0) /HPF Urine WBC (0-4) /HPF Ur Squamous Epith Cells /LPF Urine Bacteria /LPF COVID-19 ([facility]) (Negative) COVID-19 Clin Com S. pyogenes GrpA [facility] (Negative) 08/12/21 08/12/21 08/12/21 Range/Units 10:43 10:43 11:56 WBC (4.8-10.8) X10*3/uL RBC (4.20-5.50) X10*6/uL Hgb (12.0-16.0) g/dl Hct (37.0-47.0) % MCV (80.0-98.0) fL MCH (27.0-33.0) pg MCHC (31.0-35.0) g/dl RDW (11.0-16.0) % Plt Count (160-400) X10*3/uL MPV Immature Gran % (Auto) (0.0-0.4) % Neut % (Auto) (45-73) % Lymph % (Auto) (20-40) % Smyth % (Auto) (2-11) % Eos % (Auto) (0-4) % Baso % (Auto) (0-2) % Lymph # (Auto) (1.2-4.9) X10*3/uL Smyth # (Auto) (0.1-1.2) X10*3/uL Eos # (Auto) (0.0-0.4) X10*3/uL Baso # (Auto) (0.0-0.2) X10*3/uL Abs Immat Gran (auto) (0.00-0.03) X10*3/uL Absolute Neuts (auto) (2.0-8.3) x10*3/uL Absolute Nucleated RBC (0.0-0.012) X10*3/uL Nucleated RBC % (auto) (0.0-0.2) /100WBC ESR (0-20) MM/HR Sodium (135-145) mmol/L Potassium (3.3-5.1) mmol/L Chloride (96-108) mmol/L Carbon Dioxide (22-29) mmol/L Anion Gap (12-20) BUN (9-16) mg/dL Creatinine (0.5-1.4) mg/dL Estim Creat Clear Calc Estimated GFR Random Glucose (60-115) mg/dL Calcium (8.4-10.2) mg/dL Total Bilirubin (0.0-1.0) mg/dL AST (5-31) U/L ALT (0-31) U/L Alkaline Phosphatase (39-117) U/L C-Reactive Protein (< or = 0.50) mg/dL Total Protein (6.5-8.0) g/dL Albumin (3.5-5.0) g/dL Lipase (8-78) U/L Urine Color YELLOW Urine Appearance CLEAR Urine pH 7.0 (5.0-8.0) Ur Specific [place] 1.010 (1.005-1.025) Urine Protein NEG (NEG-TRACE) MG/DL Urine Glucose (UA) NEG (NEG) MG/DL Urine Ketones NEG (NEG) MG/DL Urine Blood TRACE (NEG) Urine Nitrite NEG (NEG) Ur Leukocyte Esterase NEG (NEG) Urine RBC 1-4 (0) /HPF Urine WBC 0-2 (0-4) /HPF Ur Squamous Epith Cells 2+ /LPF Urine Bacteria 1+ /LPF COVID-19 ([facility]) Negative (Negative) COVID-19 Clin Com See Note S. 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 You must see Dermatology, the skin doctors for this, they will want to do a biopsy of this. Please call at [phone] for an appointment. The treatment for this rash is ibuprofen which I have prescribed to her pharmacy. You also have a superficial thrombophlebitis, which is a blood clot in the superficial vein of your right leg. This is not dangerous. Use warm compresses for 5 times a day against the painful area. In addition, you have a lesion in your liver. To further understand what this lesion represents, you need to have an outpatient MRI. Please call your primary care provider and schedule an appointment to discuss your liver lesion, your rash, and to make sure your superficial thrombophlebitis is resolving. Please return to emergency room for any new or concerning symptoms. Tiene bran erupci?n llamada eritema nodoso. Debes corby a Dermatolog?a, los m?dicos de la piel para esto, querr?n hacer bran biopsia de esto. Llame al [phone] para programar bran kamron. El tratamiento para esta erupci?n es ibuprofeno que le he recetado a urban farmacia. Tambi?n tiene bran tromboflebitis superficial, que es un co?gulo de matteo en la vena superficial de la pierna derecha. Attalla no es peligroso. Use compresas tibias 5 veces al d?a contra el ?presley dolorida. Adem?s, tiene bran lesi?n en el h?gado. Para comprender mejor lo que representa esta lesi?n, debe realizarse bran resonancia magn?katherin ambulatoria. Llame a urban proveedor de atenci?n primaria y programe bran kamron para hablar sobre urban lesi?n hep?katherin, urban sarpullido y para asegurarse de que urban tromboflebitis superficial se est? resolviendo. Regrese a la debbie de emergencias por cualquier s?ntoma nuevo o preocupante. <ALNOSO Brownlee - Last Filed: 08/12/21 13:32> Prescriptions: New ibuprofen 600 mg tablet 600 mg PO Q6H 14 Days Qty: 56 0RF No Action metformin 500 mg tablet 500 mg PO BID 0RF Trelegy Ellipta 200-62.5-25 mcg blister with device 1 inh inhalation DAILY 30 Days Qty: 28 6RF (DME) underpads [Certainty Underpads] 30 X 36 pad See Rx Instructions .ROUTE .MEDSUPPLY Qty: 40 6RF Rx Instructions: Use 1 underpad at bedtime omeprazole 40 mg capsule,delayed release(DR/EC) 40 mg PO BID 30 Days Qty: 60 3RF betamethasone dipropionate 0.05 % ointment 1 appl topical .twice weekly PRN (Reason: itching) Qty: 45 0RF Rx Instructions: use at bedtime 1-2 times a week prn cyanocobalamin (vitamin B-12) 1,000 mcg tablet 1,000 mcg PO DAILY 90 Days Qty: 90 1RF acetaminophen-codeine 300-15 mg tablet 1 tab PO BID PRN (Reason: pain) 28 Days Qty: 56 0RF hydrocortisone 2.5 % cream 1 appl topical TID PRN (Reason: itching) Qty: 28 0RF Benadryl Itch Stopping 1-0.1 % cream 1 appl topical TID Qty: 28.3 0RF nitroglycerin [Nitrostat] 0.4 mg tablet, sublingual 0.4 mg sublingual Q5M PRN (Reason: chest pain) 30 Days Qty: 90 6RF Rx Instructions: do not exceed 3 doses per episode Trulicity 1.5 mg/0.5 mL pen injector 1.5 mg subcut QWEEK 0RF cholecalciferol (vitamin D3) 50 mcg (2,000 unit) capsule 50 mcg PO DAILY 0RF alcohol swabs Pads, Medicated 0 pad topical 0RF (DME) lancets 33 gauge misc See Rx Instructions ea Not Applicable BID Qty: 100 0RF Rx Instructions: As directed folic acid 1 mg tablet 1 mg PO DAILY 90 Days Qty: 90 3RF albuterol sulfate 2.5 mg /3 mL (0.083 %) solution for nebulization 2.5 mg inhalation Q4H PRN (Reason: bronchospasm) 30 Days Qty: 75 4RF amlodipine 10 mg tablet 10 mg PO QAM 0RF aspirin 81 mg tablet,delayed release (DR/EC) 81 mg PO DAILY 0RF simvastatin 20 mg tablet 20 mg PO BEDTIME 0RF paroxetine HCl 20 mg tablet 20 mg PO QAM 0RF calcium carbonate 500 mg calcium (1,250 mg) tablet 0 mg PO 0RF hydroxyzine HCl 10 mg tablet 10 mg PO BEDTIME Qty: 90 3RF <ALONSO Brownlee - Last Filed: 08/12/21 13:32> Referrals: Everett Bloom MD [Physician] - 2 days <ALONSO Brownlee - Last Filed: 08/12/21 13:32> Print Language: Upper Sorbian <ALONSO Brownlee - Last Filed: 08/12/21 13:32>
[2021-08-12 10:28] VITALS: BP 136/75; PULSE 67; RESP 20; O2SAT 98
[2021-08-12] MEDS: Ketorolac Tromethamine 15 MG/ML VIAL IVPUSH (10:52)
[2021-08-12] MEDS: 0.9 % Sodium Chloride 1,000 ML 999 ML IV (10:52)
[2021-08-12 11:00] LABS: MANUAL DIFF FLAG NO
[2021-08-12 11:05] LABS: Basophils Percent Auto 0.5 % (0-2); Eosinophils Absolute Auto 0.3 X10*3/uL (0.0-0.4); Eosinophils Percent Auto 6.1 % (0-4); Hematocrit 34.3 % (37.0-47.0); Hemoglobin 10.4 g/dl (12.0-16.0); Imm Gran Abs Auto 0.02 X10*3/uL (0.00-0.03); Imm Gran Pct Auto 0.4 % (0.0-0.4); Lymphocytes Absolute Auto 1.7 X10*3/uL (1.2-4.9); Lymphocytes Percent Auto 29.8 % (20-40); Mean Corpuscular HGB Conc 30.3 g/dl (31.0-35.0); Mean Corpuscular Hemoglobin 21.8 pg (27.0-33.0); Mean Corpuscular Volume 71.9 fL (80.0-98.0); Monocytes Absolute Auto 0.4 X10*3/uL (0.1-1.2); Monocytes Percent Auto 7.9 % (2-11); Neutrophils Absolute Auto 3.1 x10*3/uL (2.0-8.3); Neutrophils Percent Auto 55.3 % (45-73); Platelet Count 190 X10*3/uL (160-400); Red Blood Count 4.77 X10*6/uL (4.20-5.50); Red Cell Distribution Width 17.3 % (11.0-16.0); White Blood Count 5.6 X10*3/uL (4.8-10.8)
[2021-08-12 11:06] LABS: Appearance Urine CLEAR; Color Urine YELLOW; Glucose Urine UA NEG (NEG); Leukocyte Esterase Urine NEG (NEG); Nitrite Urine NEG (NEG); Urine Blood TRACE (NEG); Urine Ketones NEG (NEG); Urine Protein NEG (NEG-TRACE)
[2021-08-12 11:17] LABS: Alanine Aminotransferase 28 U/L (0-31); Albumin Level 4.1 g/dL (3.5-5.0); Alkaline Phosphatase 131 U/L (39-117); Anion Gap 12 (12-20); Aspartate Amino Transferase 41 U/L (5-31); Bilirubin Total 0.5 mg/dL (0.0-1.0); Blood Urea Nitrogen 9 mg/dL (9-16); C Reactive Protein 1.07 mg/dL (< or = 0.50); COVID-19 Test Negative (Negative); Calcium 9.3 mg/dL (8.4-10.2); Carbon Dioxide 27 mmol/L (22-29); Chloride 106 mmol/L (96-108); Creatinine Clr Calc Pharmacy 68.2; Estimated Glomerular Filt Rate > 60; Glucose Random 146 mg/dL (60-115); Lipase 21 U/L (8-78); Sodium 141 mmol/L (135-145); Total Protein 7.4 g/dL (6.5-8.0)
[2021-08-12 11:25] LABS: Bacteria Urine 1+ /LPF; Squamous Epithelial Cell Urine 2+ /LPF; WBC Urine 0-2 /HPF (0-4)
[2021-08-12 11:40] LABS: Erythrocyte Sedimentation Rate 28 MM/HR (0-20)
--- NOTE | 2021-08-12 11:56 | PC.NURSE ---
pt alert and oriented, skin appropriate for ethnicity, pt denies pain in the right leg/calf area after the medication, the leg is slightly red in color, also denies pain in the left sided of the abd at this time
[2021-08-12 12:11] LABS: Strep A Nucleic Acid Negative (Negative)
[2021-08-12] MEDS: iohexoL 350 MG/ML 100 ML INFUS..BTL 85 ML IV (12:23)
== END 2021-08-12 13:44 | disposition home or self-care (01) ==
PROVIDERS: Physician Assistant; Emergency Provider Emergency Medicine; PCP Internal Medicine
DX: I80.01 Phlebitis and thrombophlebitis of superficial vessels of right lower extremity (principal); L52 Erythema nodosum; R10.9 Unspecified abdominal pain; K76.9 Liver disease, unspecified; R51.9 Headache, unspecified; R60.0 Localized edema; Z20.822 Contact with and (suspected) exposure to COVID-19; Z79.899 Other long term (current) drug therapy
CPT/HCPCS: 36415; 74177; 80053; 81001; 81003; 83690; 85025; 85652; 86140; 87635; 87651; 93971; 96361; 96374; 99284; J1885; Q9967

== ENCOUNTER → 2021-08-17 10:15 | Outpatient (BNVA) | payer MEDICARE, SELFPAY | PROVIDERS: Visit Provider Advanced Practice Midwife | DX: Z13.89 Encounter for screening for other disorder (principal) ==

== ENCOUNTER → 2021-08-24 08:22 | Outpatient (BNVA) | payer OTHER, SELFPAY | PROVIDERS: PCP Internal Medicine; Referring Provider Internal Medicine; Visit Provider Nurse Practitioner Family | DX: K21.9 Gastro-esophageal reflux disease without esophagitis (principal); R10.32 Left lower quadrant pain; K59.01 Slow transit constipation; K74.60 Unspecified cirrhosis of liver; R74.8 Abnormal levels of other serum enzymes | CPT/HCPCS: 99202 ==

== ENCOUNTER 2021-09-03 08:34 | Outpatient (REF) | payer OTHER, SELFPAY ==
--- NOTE | ~2021-09-03 | US_ITS ---
EXAMINATION: US ABDOMEN COMPLETE CLINICAL INFORMATION: Unspecified abdominal pain. COMPARISON: CT abdomen and pelvis 08/12/2021. Ultrasound abdomen 01/07/2015. Renal ultrasound 06/05/2012. TECHNIQUE: Real-time imaging of the abdominal viscera. FINDINGS: PANCREAS: Normal. ABDOMINAL AORTA: The proximal, mid, and distal segments are normal in caliber. INFERIOR VENA CAVA: Visualized portions are normal. LIVER: The liver contour is is slightly lobulated questionable for mild cirrhosis. Liver echotexture is slightly increased. The liver is slightly enlarged. The liver is normal in contour. There is a 1.5 x 0.9 x 1.3 cm cyst in the right lobe of the liver. There is no intrahepatic biliary duct dilatation seen. GALLBLADDER: The gallbladder is upper normal in size. No gallstones are seen. The gallbladder wall is upper normal in thickness measuring 0.4 cm. COMMON BILE DUCT: Slightly dilated measuring 1.0 cm in diameter down to the head of the pancreas. RIGHT KIDNEY: There is cortical thinning or scarring in the upper pole. There are 3 stones measuring 5 x 6 mm in the upper pole, 6 x 7 mm in the midpole and 9 x 8 x 3 mm in the lower pole. No hydronephrosis nephrosis or focal parenchymal lesions.. The kidney measures 11.6 cm in maximum dimension. LEFT KIDNEY: There are 3 stones measuring 6 x 7 mm in the upper pole, 4 mm in the lower pole and 5 mm in the lower pole. No hydronephrosis or focal parenchymal lesions. The kidney measures 10.5 cm in maximum dimension. SPLEEN: Normal. The spleen measures 9.5 cm in maximum dimension. There is a 1.5 cm splenule. FREE FLUID: None. US/US abdomen complete IMPRESSION: Upper normal-size gallbladder. No gallstones seen. Dilated common bile duct. No common bile duct stone seen. Mild cirrhotic changes of the liver. 1.5 cm cyst in the right lobe of the liver. Bilateral renal stones.
== END 2021-09-03 08:35 | disposition home or self-care (01) ==
LOC: HO.US 08:34
PROVIDERS: Visit Provider Internal Medicine
DX: R10.9 Unspecified abdominal pain (principal)
CPT/HCPCS: 76700

== ENCOUNTER 2021-09-08 10:04 | Outpatient (REF) | payer OTHER, SELFPAY ==
--- NOTE | ~2021-09-08 | MM_ITS ---
EXAMINATION: MM SCREENING DIGITAL BREAST TOMOSYNTHESIS, BILATERAL CLINICAL INFORMATION: Screening. Asymptomatic. The lifetime risk of breast cancer based on the Tyrer-Cuzick Model is 2.8%. COMPARISON: Mammography: 11/20/2015 and studies dating back to 07/30/2013. TECHNIQUE: Digital breast tomosynthesis is performed in both the craniocaudal and mediolateral oblique views along with computer-aided detection (CAD). Synthesized 2-D images are generated from the tomosynthesis. FINDINGS: There are scattered areas of fibroglandular density (ACR BI-RADS breast composition Category b). The left breast has a stable parenchymal pattern without new abnormal dominant mass or suspicious grouping of microcalcifications. About the inferior medial aspect of the right breast approximately 6 cm from the nipple, there is a 6 x 5 mm circumscribed density for which spot compression view and possible ultrasound is recommended. Radiology staff will contact patient to obtain this study. MM/MM tomosynthesis screening BI IMPRESSION: Right breast density for further evaluation, as described. ASSESSMENT: BI-RADS 0: Incomplete - Need Additional Imaging Evaluation. RECOMMENDATION: 1. Additional views of the right breast. 2. Targeted ultrasound if warranted after review of the additional views. 3. Radiology department staff will contact the patient for additional imaging.
== END 2021-09-08 10:05 | disposition home or self-care (01) ==
LOC: HO.MAMMO 10:04
PROVIDERS: PCP Internal Medicine; Visit Provider Internal Medicine
DX: Z12.31 Encounter for screening mammogram for malignant neoplasm of breast (principal)
CPT/HCPCS: 77063; 77067

== ENCOUNTER 2021-09-14 08:04 | Outpatient (REF) | payer OTHER, SELFPAY ==
--- NOTE | ~2021-09-14 | MM_ITS ---
EXAMINATION: MM DIAGNOSTIC DIGITAL BREAST TOMOSYNTHESIS, RIGHT US DIAGNOSTIC ULTRASOUND BREAST, RIGHT CLINICAL INFORMATION: Recall from screening for subtle nodular asymmetric density mid inferior right breast. COMPARISON: Mammography: 09/08/2021, outside mammography 11/20/2015 ([facility]) TECHNIQUE: Digital breast tomosynthesis is performed. 2D images are generated from the tomosynthesis. The following views are obtained: Spot right CC, spot right MLO. Ultrasound right breast is targeted to the inferior breast using grayscale imaging and color Doppler without and with harmonics. FINDINGS: There are scattered areas of fibroglandular density (ACR BI-RADS breast composition Category b). The additional views show smooth nodular asymmetry just under 5 mm mid 6:00 right breast. There is similar asymmetry on outside mammography 2015 of smaller size. No spiculation. Margins are incompletely defined. Ultrasound demonstrates a cyst 6:00 position 5 cm from nipple measuring 5 x 4 mm. The location and shape corresponds to finding on mammography. Margins are circumscribed. There is no solid component. There is increased through-transmission of sound. No associated color flow. Results are discussed with the patient and family at time of visit, using an scrummaster. MM/MM tomosynthesis added views R IMPRESSION: -Cyst at right 6:00 position 5 x 4 mm corresponding to asymmetric density on recent screening mammography. ASSESSMENT: BI-RADS 2: Benign RECOMMENDATION: Routine annual mammography screening. This patient's information was entered into a reminder system with a target due date for their next mammogram.
== END 2021-09-14 08:05 | disposition home or self-care (01) ==
LOC: HO.MAMMO 08:04
PROVIDERS: PCP Internal Medicine; Visit Provider Internal Medicine
DX: R92.2 Inconclusive mammogram (principal)
CPT/HCPCS: 76642; 77061; 77065

== ENCOUNTER 2021-09-28 08:57 | Outpatient (REF) | payer OTHER, SELFPAY ==
[2021-09-28 10:30] LABS: MANUAL DIFF FLAG NO
[2021-09-28 11:20] LABS: Basophils Percent Auto 0.4 % (0-2); Eosinophils Absolute Auto 0.3 X10*3/uL (0.0-0.4); Eosinophils Percent Auto 6.2 % (0-4); Hematocrit 34.3 % (37.0-47.0); Hemoglobin 10.6 g/dl (12.0-16.0); Imm Gran Abs Auto 0.01 X10*3/uL (0.00-0.03); Imm Gran Pct Auto 0.2 % (0.0-0.4); Lymphocytes Absolute Auto 1.8 X10*3/uL (1.2-4.9); Lymphocytes Percent Auto 32.6 % (20-40); Mean Corpuscular HGB Conc 30.9 g/dl (31.0-35.0); Mean Corpuscular Hemoglobin 21.5 pg (27.0-33.0); Mean Corpuscular Volume 69.6 fL (80.0-98.0); Monocytes Absolute Auto 0.2 X10*3/uL (0.1-1.2); Neutrophils Absolute Auto 3.1 x10*3/uL (2.0-8.3); Neutrophils Percent Auto 56.6 % (45-73); Platelet Count 199 X10*3/uL (160-400); Red Blood Count 4.93 X10*6/uL (4.20-5.50); Red Cell Distribution Width 17.5 % (11.0-16.0); White Blood Count 5.5 X10*3/uL (4.8-10.8)
[2021-09-28 11:48] LABS: Iron 37 mcg/dL (30-160); Percent Iron Saturation 8 % (15-50); Total Iron Binding Capacity 467 mcg/dL (228-428); Unsaturated Iron Binding 430 ug/dL
[2021-09-28 12:00] LABS: Vitamin D 25-OH Total 27.9 ng/mL (>30)
[2021-09-28 12:22] LABS: Folate > 20.0 ng/mL (> or = 4.0); Vitamin B12 1134 pg/mL (200-900)
[2021-09-28 13:56] LABS: Creatinine Urine 176.65 mg/dL
[2021-10-01 23:12] LABS: FIB-ALT 30 U/L (6-29); FIB-Alpha-2-Macroglobulin 322 mg/dL (106-279); FIB-Apolipoprotein A1 138 mg/dL (101-198); FIB-GGT 103 U/L (3-65); FIB-Haptoglobin 160 mg/dL (43-212); FIB-Total Bilirubin 0.4 mg/dL (0.2-1.2); Liver Fibrosis Score 0.61; Liver Fibrosis Stage F3; Nec Inflam Act Grade A0-A1; Nec Inflam Act Score 0.22
== END 2021-09-28 08:58 | disposition home or self-care (01) ==
LOC: HO.LAB 08:57
PROVIDERS: PCP Internal Medicine; Referring Provider Internal Medicine; Visit Provider Nurse Practitioner Family
DX: E55.9 Vitamin D deficiency, unspecified (principal); D64.9 Anemia, unspecified; E11.9 Type 2 diabetes mellitus without complications; E53.8 Deficiency of other specified B group vitamins; R74.8 Abnormal levels of other serum enzymes
CPT/HCPCS: 36415; 81596; 82043; 82306; 82607; 82746; 83540; 85025; Q3014

== ENCOUNTER 2021-10-14 07:57 | Outpatient (REF) | payer OTHER, SELFPAY ==
--- NOTE | ~2021-10-14 | MR_ITS ---
EXAMINATION: MR ABDOMEN WITHOUT AND WITH CONTRAST CLINICAL INFORMATION: Hepatic cirrhosis. COMPARISON: Abdominal ultrasound 09/03/2021 CT abdomen/pelvis 08/12/2021 TECHNIQUE: MRI of the abdomen before and after the IV administration of 8 mL of Gadavist was obtained using routine sequences. FINDINGS: LUNG BASES: No pleural or pericardial effusion. LIVER: Nodular surface contour of the liver. The liver is enlarged and measures 20.6 cm in craniocaudal dimension. Hepatic steatosis. 1.2 cm right hepatic cyst. Probable 6 mm left hepatic cyst. No suspicious hepatic lesion. GALLBLADDER AND BILIARY TREE: No intrahepatic biliary ductal dilatation. The common duct measures up to 10 mm at the dorothy hepatis. The common duct tapers smoothly to the ampulla. Possible adenomyomatosis of the fundus of the gallbladder. PANCREAS: No ductal dilatation. SPLEEN: Not enlarged. Splenule. ADRENAL GLANDS: No adrenal masses. KIDNEYS: Lobulated contour of the right kidney. Bilateral renal cortical scarring. No hydronephrosis or perinephric stranding. BOWEL AND PERITONEUM: Imaged loops of small and large bowel are not obstructed. No ascites. LYMPH NODES: No bulky abdominal lymphadenopathy. VASCULAR: No abdominal aortic aneurysm. SKELETAL: L4-S1 posterior spinal fusion. MR/MR abdomen wo/w con IMPRESSION: Chronic liver disease without suspicious hepatic lesion. Hepatomegaly.
[2021-10-14 08:37] LABS: Alanine Aminotransferase 38 U/L (0-31); Albumin Level 4.1 g/dL (3.5-5.0); Alkaline Phosphatase 116 U/L (39-117); Anion Gap 11 (12-20); Aspartate Amino Transferase 55 U/L (5-31); Bilirubin Total 0.5 mg/dL (0.0-1.0); Blood Urea Nitrogen 9 mg/dL (9-16); Calcium 9.4 mg/dL (8.4-10.2); Carbon Dioxide 29 mmol/L (22-29); Chloride 107 mmol/L (96-108); Estimated Glomerular Filt Rate > 60; Glucose Fasting 168 mg/dL (60-99); Potassium 4.3 mmol/L (3.3-5.1); Sodium 143 mmol/L (135-145); Total Protein 7.6 g/dL (6.5-8.0)
== END 2021-10-14 07:58 | disposition home or self-care (01) ==
LOC: HO.MRI 07:57
PROVIDERS: Absent Provider Internal Medicine; PCP Internal Medicine; Visit Provider Nurse Practitioner Family
DX: K74.60 Unspecified cirrhosis of liver (principal); E11.65 Type 2 diabetes mellitus with hyperglycemia
CPT/HCPCS: 36415; 74183; 80053; A9585

== ENCOUNTER 2021-11-02 08:18 | Outpatient (REF) | payer OTHER, SELFPAY ==
[2021-11-02 11:07] LABS: HBS Num1 4.25 mIU/mL (0-7.99); HBc Num1 0.12 S/CO (0.00-0.79); HBsAGNum1 0.21 S/CO (0.00-0.99); HIV AB/AG Nonreactive (Nonreactive); HIV Num 1 0.06 S/CO (0.00-0.99); Hepatitis B Core Antibody Nonreactive (Nonreactive); Hepatitis B Surface Antigen Negative (Negative); ~HepC Num1 0.24 S/CO (0.00-0.79); ~Hepatitis B Surface Antibody NONREACTIVE (Nonreactive); ~Hepatitis C Antibody Nonreactive (Nonreactive)
[2021-11-02 11:11] LABS: Ferritin 21 ng/mL (10-250); TSH reflex Free T4 1.91 uIU/mL (0.32-4.0)
[2021-11-03 12:51] LABS: Alpha Fetoprotein 5.1 ng/mL
[2021-11-04 04:22] LABS: Ceruloplasmin 31 mg/dL (18-53)
[2021-11-04 07:54] LABS: Hepatitis A Antibody IgM 0.35 Index (0-0.79); ~Hepatitis A Antibody IgM Nonreactive (Nonreactive)
[2021-11-04 15:17] LABS: Mitochondrial Antibodies NEGATIVE (NEGATIVE)
[2021-11-06 23:52] LABS: Smooth Muscle Antibody <20 U (<20)
== END 2021-11-02 08:19 | disposition home or self-care (01) ==
LOC: HO.LAB 08:18
PROVIDERS: PCP Internal Medicine; Visit Provider Nurse Practitioner Family
DX: Z11.4 Encounter for screening for human immunodeficiency virus [HIV] (principal); R79.89 Other specified abnormal findings of blood chemistry; R74.8 Abnormal levels of other serum enzymes; K21.9 Gastro-esophageal reflux disease without esophagitis; R10.32 Left lower quadrant pain; K59.04 Chronic idiopathic constipation; K74.60 Unspecified cirrhosis of liver
CPT/HCPCS: 36415; 82105; 82390; 82728; 84443; 86015; 86255; 86256; 86704; 86706; 86709; 86803; 87340; 87389; 99212

== ENCOUNTER 2021-11-03 12:45 | Outpatient (REF) | payer OTHER, SELFPAY ==
[2021-11-11 19:17] LABS: Pancreatic Elastase-1 499 mcg/g
== END 2021-11-03 12:46 | disposition home or self-care (01) ==
LOC: HO.LNP 12:45
PROVIDERS: Visit Provider Nurse Practitioner Family
DX: R10.9 Unspecified abdominal pain (principal); K21.9 Gastro-esophageal reflux disease without esophagitis
CPT/HCPCS: 82656; 87338

== ENCOUNTER → 2021-12-28 09:16 | Outpatient (BNVA) | payer OTHER, SELFPAY | PROVIDERS: PCP Internal Medicine; Visit Provider Nurse Practitioner Family | DX: K21.9 Gastro-esophageal reflux disease without esophagitis (principal); R10.32 Left lower quadrant pain; K59.04 Chronic idiopathic constipation; A04.8 Other specified bacterial intestinal infections | CPT/HCPCS: 99212 ==

== ENCOUNTER 2022-01-01 14:19 | Outpatient (REF) | payer OTHER, SELFPAY | END 2022-01-01 14:20 | disposition home or self-care (01) | LOC: HO.LNP 14:19 | PROVIDERS: Visit Provider Nurse Practitioner Family | DX: K21.9 Gastro-esophageal reflux disease without esophagitis (principal); Z11.0 Encounter for screening for intestinal infectious diseases | CPT/HCPCS: 87338 ==

== ENCOUNTER 2022-02-22 08:11 | Outpatient (REF) | payer OTHER, SELFPAY ==
--- NOTE | 2022-02-22 08:19 | ECG_ITS ---
Test Reason : cp Blood Pressure : / mmHG Vent. Rate : 068 BPM Atrial Rate : 000 BPM P-R Int : 000 ms QRS Dur : 090 ms QT Int : 444 ms P-R-T Axes : 000 -37 050 degrees QTc Int : 472 ms Atrial fibrillation Left axis deviation Abnormal ECG When compared with ECG of 19-NOV-2020 09:34, Atrial fibrillation has replaced Sinus rhythm Referred By: Martha Gibbs Electronically Signed By:JAYNE WADE
[2022-02-22 08:39] LABS: MANUAL DIFF FLAG NO
[2022-02-22 09:21] LABS: Basophils Percent Auto 0.7 % (0-2); Eosinophils Absolute Auto 0.5 X10*3/uL (0.0-0.4); Eosinophils Percent Auto 10.4 % (0-4); Hematocrit 33.5 % (37.0-47.0); Imm Gran Abs Auto 0.01 X10*3/uL (0.00-0.03); Imm Gran Pct Auto 0.2 % (0.0-0.4); Lymphocytes Absolute Auto 1.7 X10*3/uL (1.2-4.9); Lymphocytes Percent Auto 37.2 % (20-40); Mean Corpuscular HGB Conc 29.9 g/dl (31.0-35.0); Mean Corpuscular Hemoglobin 19.6 pg (27.0-33.0); Mean Corpuscular Volume 65.8 fL (80.0-98.0); Monocytes Absolute Auto 0.3 X10*3/uL (0.1-1.2); Monocytes Percent Auto 6.5 % (2-11); Neutrophils Absolute Auto 2.1 x10*3/uL (2.0-8.3); Platelet Count 180 X10*3/uL (160-400); Red Blood Count 5.09 X10*6/uL (4.20-5.50); Red Cell Distribution Width 17.8 % (11.0-16.0); White Blood Count 4.6 X10*3/uL (4.8-10.8)
[2022-02-22 09:45] LABS: Alanine Aminotransferase 35 U/L (0-31); Albumin Level 4.3 g/dL (3.5-5.0); Alkaline Phosphatase 122 U/L (39-117); Anion Gap 17 (12-20); Aspartate Amino Transferase 55 U/L (5-31); Bilirubin Total 0.4 mg/dL (0.0-1.0); Blood Urea Nitrogen 8 mg/dL (9-16); Calcium 9.1 mg/dL (8.4-10.2); Carbon Dioxide 24 mmol/L (22-29); Chloride 104 mmol/L (96-108); Cholesterol 126 mg/dL; Estimated Glomerular Filt Rate > 60; Glucose Fasting 113 mg/dL (60-99); HDL Cholesterol 32 mg/dL; Iron 27 mcg/dL (30-160); LDL Cholesterol Calculated 78 mg/dl; Percent Iron Saturation 6 % (15-50); Potassium 3.6 mmol/L (3.3-5.1); Sodium 141 mmol/L (135-145); Total Iron Binding Capacity 477 mcg/dL (228-428); Total Protein 7.6 g/dL (6.5-8.0); Triglycerides 82 mg/dL; Unsaturated Iron Binding 450 ug/dL
[2022-02-22 10:06] LABS: Creatinine Urine 126.57 mg/dL; Microalbum/Creatinine Ratio Ur 72.6 ug/mg cr
[2022-02-22 10:07] LABS: Vitamin D 25-OH Total 27.1 ng/mL (>30)
[2022-02-22 10:47] LABS: Folate > 20.0 ng/mL (> or = 4.0); Vitamin B12 949 pg/mL (200-900)
== END 2022-02-22 08:12 | disposition home or self-care (01) ==
LOC: HO.LAB 08:11
PROVIDERS: PCP Internal Medicine; Visit Provider Internal Medicine
DX: R07.9 Chest pain, unspecified (principal); E78.5 Hyperlipidemia, unspecified; D64.9 Anemia, unspecified; E53.8 Deficiency of other specified B group vitamins; E11.65 Type 2 diabetes mellitus with hyperglycemia; E55.9 Vitamin D deficiency, unspecified; K21.9 Gastro-esophageal reflux disease without esophagitis
CPT/HCPCS: 36415; 80053; 80061; 82043; 82306; 82607; 82746; 83540; 85025; 93005

== ENCOUNTER 2022-02-22 11:22 | Emergency (ER) | payer OTHER, SELFPAY ==
--- NOTE | 2022-02-22 11:23 | ECG_ITS ---
Test Reason : cp Blood Pressure : / mmHG Vent. Rate : 063 BPM Atrial Rate : 063 BPM P-R Int : 194 ms QRS Dur : 090 ms QT Int : 428 ms P-R-T Axes : 038 -32 069 degrees QTc Int : 437 ms Normal sinus rhythm with sinus arrhythmia Left axis deviation Low voltage QRS Abnormal ECG When compared with ECG of 22-FEB-2022 08:21, Sinus rhythm has replaced Atrial fibrillation Referred By: Generic ED Physician Electronically Signed By:JAYNE WADE
[2022-02-22 11:24] VITALS: BP 152/56; PULSE 70; RESP 18; TEMP 36.5; O2SAT 96; BMI 35.2
[2022-02-22 17:48] LABS: MANUAL DIFF FLAG NO
[2022-02-22 17:51] LABS: Basophils Percent Auto 0.6 % (0-2); Hemoglobin 9.9 g/dl (12.0-16.0); Imm Gran Abs Auto 0.01 X10*3/uL (0.00-0.03); Imm Gran Pct Auto 0.2 % (0.0-0.4); Mean Corpuscular Volume 65.5 fL (80.0-98.0); Neutrophils Absolute Auto 2.5 x10*3/uL (2.0-8.3); SCAN SMEAR FLAG 1
[2022-02-22 17:53] LABS: Eosinophils Absolute Auto 0.5 X10*3/uL (0.0-0.4); Eosinophils Percent Auto 8.5 % (0-4); Hematocrit 32.8 % (37.0-47.0); Lymphocytes Absolute Auto 2.1 X10*3/uL (1.2-4.9); Lymphocytes Percent Auto 39.4 % (20-40); Mean Corpuscular HGB Conc 30.2 g/dl (31.0-35.0); Mean Corpuscular Hemoglobin 19.8 pg (27.0-33.0); Monocytes Absolute Auto 0.3 X10*3/uL (0.1-1.2); Monocytes Percent Auto 6.1 % (2-11); Neutrophils Percent Auto 45.2 % (45-73); Platelet Count 185 X10*3/uL (160-400); Red Blood Count 5.01 X10*6/uL (4.20-5.50); White Blood Count 5.4 X10*3/uL (4.8-10.8)
[2022-02-22 17:54] LABS: PLT ABN DIST 1
[2022-02-22 18:07] LABS: Alanine Aminotransferase 38 U/L (0-31); Albumin Level 4.3 g/dL (3.5-5.0); Alkaline Phosphatase 131 U/L (39-117); Anion Gap 15 (12-20); Aspartate Amino Transferase 61 U/L (5-31); Bilirubin Total 0.2 mg/dL (0.0-1.0); Blood Urea Nitrogen 10 mg/dL (9-16); Calcium 9.3 mg/dL (8.4-10.2); Carbon Dioxide 26 mmol/L (22-29); Chloride 104 mmol/L (96-108); Creatinine Clr Calc Pharmacy 62.9; Estimated Glomerular Filt Rate > 60; Glucose Random 117 mg/dL (60-115); Potassium 3.8 mmol/L (3.3-5.1); Sodium 141 mmol/L (135-145); Total Protein 7.7 g/dL (6.5-8.0)
[2022-02-22 18:13] LABS: Troponin-I High Sensitivity 8.8 ng/L (<3.5-17.0)
== END 2022-02-22 22:34 | disposition left against medical advice (07) ==
PROVIDERS: Physician Assistant; Emergency Provider Emergency Medicine; PCP Internal Medicine
DX: R94.31 Abnormal electrocardiogram [ECG] [EKG] (principal); I10 Essential (primary) hypertension; E11.9 Type 2 diabetes mellitus without complications; E78.5 Hyperlipidemia, unspecified
CPT/HCPCS: 36415; 80053; 84484; 85025; 93005; 99212; 99281; 99283

== ENCOUNTER → 2022-05-04 09:32 | Outpatient (BNVA) | payer OTHER, SELFPAY | PROVIDERS: PCP Internal Medicine; Visit Provider Nurse Practitioner Family | DX: K59.04 Chronic idiopathic constipation (principal); K21.9 Gastro-esophageal reflux disease without esophagitis; A04.8 Other specified bacterial intestinal infections | CPT/HCPCS: 99212 ==

== ENCOUNTER 2022-05-06 12:58 | Outpatient (REF) | payer OTHER, SELFPAY | END 2022-05-06 12:59 | disposition home or self-care (01) | LOC: HO.LNP 12:58 | PROVIDERS: Visit Provider Nurse Practitioner Family | DX: K21.9 Gastro-esophageal reflux disease without esophagitis (principal) | CPT/HCPCS: 87338 ==

== ENCOUNTER 2022-09-15 08:35 | Outpatient (REF) | payer OTHER, SELFPAY ==
--- NOTE | ~2022-09-15 | MM_ITS ---
EXAMINATION: MM SCREENING DIGITAL BREAST TOMOSYNTHESIS, BILATERAL CLINICAL INFORMATION: Screening. Asymptomatic. The lifetime risk of breast cancer based on the Tyrer-Cuzick Model is 3%. COMPARISON: Mammography: 09/14/2021, 09/08/2021, 11/20/2015; ultrasound right breast 09/14/2021. TECHNIQUE: Digital breast tomosynthesis is performed in both the craniocaudal and mediolateral oblique views along with computer-aided detection (CAD). Synthesized 2D images are generated from the tomosynthesis. Additional left MLO view is provided. FINDINGS: There are scattered areas of fibroglandular density (ACR BI-RADS breast composition Category b). There are no significant masses, abnormal calcifications, or other abnormalities. No architectural abnormality or developing density or significant change from prior studies. There is a small circumscribed nodule at 6:00 right breast corresponding to cyst on prior targeted ultrasound. The axilla and skin contours are unremarkable. MM/MM tomosynthesis screening BI IMPRESSION: No mammographic evidence of malignancy. ASSESSMENT: BI-RADS 2: Benign RECOMMENDATION: Routine annual mammography screening. This patient's information was entered into a reminder system with a target due date for their next mammogram.
== END 2022-09-15 08:36 | disposition home or self-care (01) ==
LOC: HO.MAMMO 08:35
PROVIDERS: Visit Provider Internal Medicine
DX: Z12.31 Encounter for screening mammogram for malignant neoplasm of breast (principal)
CPT/HCPCS: 77063; 77067

== ENCOUNTER 2022-09-16 08:14 | Outpatient (REF) | payer OTHER, SELFPAY ==
--- NOTE | ~2022-09-16 | XR_ITS ---
EXAMINATION: XR KNEE, RIGHT CLINICAL INFORMATION: Pain. COMPARISON: None available. TECHNIQUE: AP and lateral views of the right knee. FINDINGS: Bony mineralization is diminished. The lateral, medial and patellofemoral joint are well-maintained. No fracture or dislocation is seen. There is a small joint effusion. There is an old, healed fracture of the distal right femur. A mild valgus configuration is noted. An intact orthopedic fixator plate and fixator screws are applied to the distal right femur. No focal soft tissue swelling, gas or foreign body is seen XR/XR knee RT 2V IMPRESSION: 1. No acute fracture or dislocation is seen. 2. There is a very small right knee joint effusion. 3. There is an old, healed distal right femoral fracture, with bony remodeling. 4. A mild valgus configuration is noted.
== END 2022-09-16 08:15 | disposition home or self-care (01) ==
LOC: HO.XRAY 08:14
PROVIDERS: PCP Internal Medicine; Visit Provider Internal Medicine
DX: M25.561 Pain in right knee (principal)
CPT/HCPCS: 73560

== ENCOUNTER 2023-01-14 10:19 | Outpatient (AMB) | payer OTHER, SELFPAY ==
[2023-01-14 10:23] VITALS: BP 132/62; PULSE 70; O2SAT 98; BMI 34.5
--- NOTE | 2023-01-14 10:23 | MHC.OFFVIS ---
Intake Vital Signs 01/14/23 10:23 Height 4 ft 11 in Weight 170 lb 13.732 oz BMI 34.5 BP 132/62 Blood Pressure Location Rt brachial Position Sitting Pulse 70 Pulse Source Doppler Pulse Oximetry (%) 98 Oxygen Delivery Method Room Air Intake Visit Reasons: COPD Allergies oxycodone [From Percocet] Allergy (Intermediate, Verified 01/14/23 10:30) rash pollen extracts [POLLEN] Allergy (Intermediate, Verified 01/14/23 10:30) ASTHMA corn Allergy (Verified 01/14/23 10:30) Unknown fish derived [fish] Allergy (Verified 01/14/23 10:30) Unknown peanuts Allergy (Mild, Uncoded 09/16/22 07:48) Rash HPI COPD HPI Details 77-year-old lady, lifetime nonsmoker, followed for severe persistent allergic asthma, environmental allergies, and chronic cough.? Lost a follow-up for several years, now returns complain of worsening dyspnea on exertion, orthopnea, and lower extremity edema. Patient is also following with cardiology. She continues to use Trelegy and albuterol MDI. She denies recent acute exacerbations. [facility] Medical History Abdominal pain Allergic reaction Asthma Asthma-COPD overlap syndrome B12 deficiency Cognitive impairment Diabetes mellitus Dyslipidemia Essential hypertension Ganglion cyst of dorsum of left wrist GERD (gastroesophageal reflux disease) Helicobacter pylori (H. pylori) History of anxiety Hypovitaminosis D Memory loss Mild recurrent major depression Moderate asthma Obese Physical exam Skin lesion Unstable angina Urinary incontinence Surgical History H/O knee surgery H/O: hysterectomy History of bladder surgery Previous back surgery Family History Father Diabetes Hypertension Mother Diabetes Hypertension Social History Housing: Apartment Alcohol intake: never Patient Tobacco Use Status: Never used Tobacco e-Cigarette/Vaping Use: Never Used Second Hand Smoke Exposure: No service: No Current occupational status: disabled Cognitive needs: Yes Hearing needs: No Vision needs: No Review of Systems Const Denies daytime sleepiness, Denies excessive sweating, Denies fatigue, Denies fever(s), Denies lethargy, Denies malaise, Denies night sweats, Denies snoring and Denies weight loss Eyes Denies blurry vision and Denies itchy eyes ENT Denies nasal congestion, Denies post nasal drip, Denies sinus pain, Denies sinus pressure and Denies other ( Thrush) Card Denies chest pain, Reports pedal edema, Denies dyspnea, Reports dyspnea on exertion, Reports orthopnea and Reports paroxysmal nocturnal dyspnea Resp Denies cough, Denies hemoptysis, Denies excessive phlegm production, Denies dyspnea, Reports dyspnea on exertion, Denies snoring and Denies wheezing GI Denies abdominal pain and Denies heartburn Musc Denies myalgias, Denies arthralgias and Denies joint swelling Skin/Breast Denies rash Neuro Denies memory loss and Denies seizure-like activity Psych Denies abnormal sleep pattern, Denies anxiety and Denies memory loss Endo Denies excessive sweating, Denies fatigue and Denies heat intolerance Yvon/Lymph Denies easy bruising Aller/Immun Denies itchy eyes, Denies seasonal rhinorrhea and Denies wheezing Physical Exam Vital Signs: Last Vital Signs Pulse 70 01/14/23 10:23 BP 132/62 01/14/23 10:23 Pulse Ox 98 01/14/23 10:23 Oxygen Delivery Method Room Air 01/14/23 10:23 BMI result Body Mass Index 34.5 Const General: no acute distress and alert Nutritional Appearance: not obese Orientation/consciousness: Other orientation findings ( oriented) HEENT Head: Yes atraumatic Eyes General: appearance normal, both eyes and all related structures Sclerae: sclerae normal EOM: EOMs intact bilaterally Neck Neck: Yes supple Lymphatic: no lymphadenopathy noted Resp Effort & Inspection: normal respiratory effort and no use of accessory muscles Auscultation: clear to auscultation bilaterally Cardio Rate: regular rate Rhythm: regular rhythm Heart sounds: no gallops, no murmurs and no rubs Skin General skin exam: other ( warm) Extrem General: No clubbing, No cyanosis and Yes edema (2+ bilateral) Assessment & Plan Assessment & Plan (1) Severe persistent allergic asthma: Code(s): J45.50 - Severe persistent asthma, uncomplicated Plan: Controlled on Trelegy and albuterol MDI. Continue current regimen. (2) Environmental allergies: Code(s): Z91.09 - Other allergy status, other than to drugs and biological substances Plan: If symptoms stop being controlled, will consider immunologic therapy. (3) Dyspnea on exertion: Code(s): R06.09 - Other forms of dyspnea Plan: Appears to have significant cardiac component to her current symptoms. Patient continues to follow-up with Cardiology service. Coding Level of Care Code Est Pt Level 4 (20841) Diagnoses Severe persistent allergic asthma J45.50 Environmental allergies Z91.09 Dyspnea on exertion R06.09
== END 2023-01-14 10:45 | disposition home or self-care (01) ==
PROVIDERS: PCP Internal Medicine; Visit Provider Internal Medicine Pulmonary Disease
DX: J45.50 Severe persistent asthma, uncomplicated (principal); Z91.09 Other allergy status, other than to drugs and biological substances; R06.09 Other forms of dyspnea
CPT/HCPCS: 99214

== ENCOUNTER → 2023-01-14 10:19 | Outpatient (BNVA) | payer OTHER, SELFPAY | PROVIDERS: PCP Internal Medicine; Visit Provider Internal Medicine Pulmonary Disease | DX: J44.9 Chronic obstructive pulmonary disease, unspecified (principal); J45.50 Severe persistent asthma, uncomplicated; R06.09 Other forms of dyspnea; R05.3 Chronic cough; F17.210 Nicotine dependence, cigarettes, uncomplicated; Z91.09 Other allergy status, other than to drugs and biological substances | CPT/HCPCS: 99212 ==

== ENCOUNTER 2023-03-09 10:18 | Outpatient (REF) | payer OTHER, SELFPAY ==
--- NOTE | ~2023-03-09 | XR_ITS ---
EXAMINATION: XR HIP, RIGHT CLINICAL INFORMATION: Right hip pain. COMPARISON: Right knee x-ray 09/16/2022. TECHNIQUE: Two views of the right hip. FINDINGS: Mild degenerative changes right hip with joint space narrowing and hypertrophic change. Visualization is limited due to overlying soft tissues. Femoral head well seated in the acetabulum. Orthopedic fixator plate and screws traversing mid to distal right femur incompletely imaged on the current exam, but similar to exam of 09/16/2022. XR/XR hip RT min 2V IMPRESSION: 1. Mild degenerative changes right hip. 2. Orthopedic fixator plate and screws traversing mid to distal right femur incompletely imaged on the current exam, but imaged portions are similar to exam of 09/16/2022. Additional imaging with CT scan or MRI should be considered for better visualization as these modalities are much more sensitive for detection of fracture or other underlying pathology.
== END 2023-03-09 10:19 | disposition home or self-care (01) ==
LOC: HO.XRAY 10:18
PROVIDERS: PCP Internal Medicine; Visit Provider Internal Medicine
DX: M16.11 Unilateral primary osteoarthritis, right hip (principal)
CPT/HCPCS: 73502

== ENCOUNTER 2023-03-10 10:40 | Outpatient (AMB) | payer OTHER, SELFPAY ==
[2023-03-10 10:42] VITALS: BP 137/66; PULSE 66; O2SAT 98; BMI 34.1
--- NOTE | 2023-03-10 10:42 | MHC.OFFVIS ---
Intake Vital Signs 03/10/23 10:42 Height 4 ft 11 in Weight 168 lb 10.458 oz BMI 34.1 BP 137/66 Blood Pressure Location Rt brachial Position Sitting Pulse 66 Pulse Source Doppler Pulse Oximetry (%) 98 Oxygen Delivery Method Room Air Intake Visit Reasons: COPD Technical Documentation Specialist Required: Yes Technical Documentation Specialist Name: Ramona Cleveland Danielson Allergies oxycodone [From Percocet] Allergy (Intermediate, Verified 03/10/23 10:46) rash pollen extracts [POLLEN] Allergy (Intermediate, Verified 03/10/23 10:46) ASTHMA corn Allergy (Verified 03/10/23 10:46) Unknown fish derived [fish] Allergy (Verified 03/10/23 10:46) Unknown peanuts Allergy (Mild, Uncoded 09/16/22 07:48) Rash HPI COPD HPI Details 77-year-old lady, lifetime nonsmoker, followed for severe persistent allergic asthma, environmental allergies, and chronic cough.? Patient continues on trilogy and albuterol MDI with good control of her underlying symptoms. She denies any recent exacerbations. [facility] Medical History Abdominal pain Allergic reaction Asthma Asthma-COPD overlap syndrome B12 deficiency Cognitive impairment Diabetes mellitus Dyslipidemia Essential hypertension Ganglion cyst of dorsum of left wrist GERD (gastroesophageal reflux disease) Helicobacter pylori (H. pylori) History of anxiety Hypovitaminosis D Memory loss Mild recurrent major depression Moderate asthma Obese Physical exam Skin lesion Unstable angina Urinary incontinence Surgical History H/O knee surgery H/O: hysterectomy History of bladder surgery Previous back surgery Family History Father Diabetes Hypertension Mother Diabetes Hypertension Social History Housing: Apartment Alcohol intake: never Patient Tobacco Use Status: Never used Tobacco e-Cigarette/Vaping Use: Never Used Second Hand Smoke Exposure: No service: No Current occupational status: disabled Cognitive needs: Yes Hearing needs: No Vision needs: No Review of Systems Const Denies daytime sleepiness, Denies excessive sweating, Denies fatigue, Denies fever(s), Denies lethargy, Denies malaise, Denies night sweats, Denies snoring and Denies weight loss Eyes Denies blurry vision and Denies itchy eyes ENT Denies nasal congestion, Denies post nasal drip, Denies sinus pain, Denies sinus pressure and Denies other ( Thrush) Card Denies chest pain, Denies pedal edema, Denies dyspnea, Denies orthopnea and Denies paroxysmal nocturnal dyspnea Resp Denies cough, Denies hemoptysis, Denies excessive phlegm production, Denies dyspnea, Denies snoring and Denies wheezing GI Denies abdominal pain and Denies heartburn Musc Denies myalgias, Denies arthralgias and Denies joint swelling Skin/Breast Denies rash Neuro Denies memory loss and Denies seizure-like activity Psych Denies abnormal sleep pattern, Denies anxiety and Denies memory loss Endo Denies excessive sweating, Denies fatigue and Denies heat intolerance Yvon/Lymph Denies easy bruising Aller/Immun Denies itchy eyes, Denies seasonal rhinorrhea and Denies wheezing Physical Exam Vital Signs: Last Vital Signs Pulse 66 03/10/23 10:42 BP 137/66 03/10/23 10:42 Pulse Ox 98 03/10/23 10:42 Oxygen Delivery Method Room Air 03/10/23 10:42 BMI result Body Mass Index 34.1 Const General: no acute distress and alert Nutritional Appearance: not obese Orientation/consciousness: Other orientation findings ( oriented) HEENT Head: Yes atraumatic Eyes General: appearance normal, both eyes and all related structures Sclerae: sclerae normal EOM: EOMs intact bilaterally Neck Neck: Yes supple Lymphatic: no lymphadenopathy noted Resp Effort & Inspection: normal respiratory effort and no use of accessory muscles Auscultation: clear to auscultation bilaterally Cardio Rate: regular rate Rhythm: regular rhythm Heart sounds: no gallops, no murmurs and no rubs Skin General skin exam: other ( warm) Extrem General: No clubbing, No cyanosis and No edema Assessment & Plan Assessment & Plan (1) Asthma-COPD overlap syndrome: Code(s): J44.9 - Chronic obstructive pulmonary disease, unspecified Plan: Well controlled on current regimen of trilogy and albuterol MDI. Continue current regimen. (2) Environmental allergies: Code(s): Z91.09 - Other allergy status, other than to drugs and biological substances Plan: Well controlled on Singulair. Continue current regimen. Coding Level of Care Code Est Pt Level 4 (76980) Diagnoses Asthma-COPD overlap syndrome J44.9 Environmental allergies Z91.09
== END 2023-03-10 11:03 | disposition home or self-care (01) ==
PROVIDERS: PCP Internal Medicine; Visit Provider Internal Medicine Pulmonary Disease
DX: J44.9 Chronic obstructive pulmonary disease, unspecified (principal); Z91.09 Other allergy status, other than to drugs and biological substances
CPT/HCPCS: 99214

== ENCOUNTER → 2023-03-10 10:40 | Outpatient (BNVA) | payer OTHER, SELFPAY | PROVIDERS: PCP Internal Medicine; Visit Provider Internal Medicine Pulmonary Disease | DX: J44.9 Chronic obstructive pulmonary disease, unspecified (principal); Z91.09 Other allergy status, other than to drugs and biological substances | CPT/HCPCS: 99212 ==

== ENCOUNTER 2023-04-18 09:10 | Outpatient (AMB) | payer OTHER, SELFPAY ==
--- NOTE | 2023-04-18 09:13 | A.OFFVIS_ITS ---
Intake Vital Signs 04/18/23 09:21 Height 4 ft 11 in Weight 175 lb BMI 35.3 BP 146/70 H Blood Pressure Location Rt brachial Position Sitting Pulse 68 Pulse Source Pulse Oximeter Pulse Oximetry (%) 98 Oxygen Delivery Method Room Air Intake Visit Reasons: Pain in Right Hip and Groin/lvm Intake Note: Pain today 08/30 Agricultural Extension Specialist Required: Yes Agricultural Extension Specialist Language: Vibrating Screed Operator Name: daughter Accompanied by: Daughter Allergies oxycodone [From Percocet] Allergy (Intermediate, Verified 03/10/23 10:46) rash pollen extracts [POLLEN] Allergy (Intermediate, Verified 03/10/23 10:46) ASTHMA corn Allergy (Verified 03/10/23 10:46) Unknown fish derived [fish] Allergy (Verified 03/10/23 10:46) Unknown peanuts Allergy (Mild, Uncoded 09/16/22 07:48) Rash HPI Pain in Right Hip and Groin/lvm HPI Details Patient is a pleasant 77 years old [place]uneian speaking female presents today with right hip and right groin pain. She reports history of previous hip replacement over 4 years ago and previous back surgery L4-S1 posterior fusion at [facility] [place] for both surgeries. She presents with low back pain that radiates into her sacral areas, right buttock and into her right lateral hip and occasionally into right groin with walking, changing positions and weight bearing. Denies any recent falls, trauma, or injury. Reports history of multiple falls in the past. She presents with localized tenderness in the projection of right sacroiliac joint area with minimal tenderness along greater trochanteric bursa. Provocative examination is positive for right SIJ pain. She reports right anterior medial thigh and right medial knee pain with internal right hip rotation but no groin pain. Pain affects her daily activities, functioning, mood, sleep, and quality of life. Denies any fever, weight loss, abdominal pain, bladder or bowel dysfunction or saddle anesthesia. Location Right hip starts in low back and radiates to groin and lateral hip Duration Chronic pain, worsening for the past 5-6 months Characteristics of symptom or complaint Sharp, stabbing, throbbing, aching, shooting Aggravating or associated factors Movements, walking, weight bearing, bending Relieving factors Rest, Tylenol #3, activity modifications, walker with seat Treatment PT, GTB injections -minimal relief PFSH Medical History Helicobacter pylori (H. pylori) B12 deficiency Physical exam Mild recurrent major depression Abdominal pain Allergic reaction Asthma-COPD overlap syndrome Ganglion cyst of dorsum of left wrist Skin lesion Urinary incontinence Moderate asthma Cognitive impairment Unstable angina Obese Hypovitaminosis D GERD (gastroesophageal reflux disease) Dyslipidemia Essential hypertension Memory loss History of anxiety Diabetes mellitus Asthma Surgical History H/O: hysterectomy H/O knee surgery History of bladder surgery Previous back surgery Family History Father Diabetes Hypertension Mother Diabetes Hypertension Housing: Apartment Alcohol intake: never Patient Tobacco Use Status: Never used Tobacco e-Cigarette/Vaping Use: Never Used Second Hand Smoke Exposure: No service: No Current occupational status: disabled Cognitive needs: Yes Hearing needs: No Vision needs: No Review of Systems Const All systems reviewed & are unremarkable except as noted in HPI and below Physical Exam Vital Signs: Last Vital Signs Pulse 68 04/18/23 09:21 BP 146/70 H 04/18/23 09:21 Pulse Ox 98 04/18/23 09:21 Oxygen Delivery Method Room Air 04/18/23 09:21 BMI result Body Mass Index 35.3 General: Appears afebrile. Alert and oriented. Mood and affect appropriate. Follows and participates in conversation appropriately. Respiratory effort is unlabored. No cough. Uses walker with seat with ambulation and transfers. Ambulates with bilaterally normal heel strike and toe off, reports imbalance and weakness RLE. Back/Spine/Pelvis Other: Limited lumbar ROM, with extension and flexion reproducing mild to moderate pain. Antalgic gait with limping. Demonstrates 5/5 left and 4/5 right (due to pain) strength of quadriceps bilaterally as well as flexion/dorsiflexion of bilateral feet against resistance. 2+ pedal pulses bilaterally. Seated straight leg rise with dorsiflexion negative bilaterally. +1 patellar and diminished achilles reflexes bilaterally. Facet loading test positive bilaterally. Johnathon sign, Moe?s, Gaenslen, Pelvic compression and Stinchfield tests positive on the right. No groin pain with I/E hip rotations. Right internal hip rotation reproduces right anterior medial thigh and medial knee pain. Valsalva maneuver negative. Cervical Spine: cervical ROM normal, cervical muscular tenderness and No Cervical spine tenderness Thoracic/Lumbar Spine: thoracic and lumbar spine normal to inspection, Thoracic/lumbar spine scar(s), Lasegue's sign negative, straight leg raise negative bilaterally, pain with thoraco-lumbar ROM, paraspinal muscle tenderne ss, thoraco-lumbar ROM limited, No thoracic spinal tenderness and lumbar spinal tenderness Pelvis: buttock tenderness on the right and no sciatic notch tenderness Sacroiliac joints: on the right tender to palpation and on the left nontender Results Reviewed Results Reviewed: XR HIP, RIGHT 03/09/23 CLINICAL INFORMATION: Right hip pain. COMPARISON: Right knee x-ray 09/16/2022. FINDINGS: Mild degenerative changes right hip with joint space narrowing and hypertrophic change. Visualization is limited due to overlying soft tissues. Femoral head well seated in the acetabulum. Orthopedic fixator plate and screws traversing mid to distal right femur incompletely imaged on the current exam, but similar to exam of 09/16/2022. IMPRESSION: 1. Mild degenerative changes right hip. 2. Orthopedic fixator plate and screws traversing mid to distal right femur incompletely imaged on the current exam, but imaged portions are similar to exam of 09/16/2022. Additional imaging with CT scan or MRI should be considered for better visualization as these modalities are much more sensitive for detection of fracture or other underlying pathology. CT/CT abdomen pelvis w con 08/12/21 OSSEOUS STRUCTURES: There are postsurgical changes posterior fusion hardware and interpedicular screws from L4 to S1. The right L5 screw is broken. There is mild anterior subluxation of L5 with respect to S1 measuring 5 mm. These findings are unchanged from June [address] IMPRESSION: Diverticulosis of the colon. No evidence of diverticulitis. Bilateral renal cortical thinning or scarring. Small bilateral renal stones. No hydronephrosis. Question mild cirrhotic changes of the liver. 2 small liver lesions larger compatible with a cyst. The smaller lesion is difficult to characterize with certainty. This could be better evaluated with liver MRI. Stable postsurgical changes to the lower lumbar spine from June [address] Assessment & Plan Assessment & Plan (1) Lumbar spondylosis: Code(s): M47.816 - Spondylosis without myelopathy or radiculopathy, lumbar region (2) Sacroiliac joint pain: Code(s): M53.3 - Sacrococcygeal disorders, not elsewhere classified (3) Right hip pain: Code(s): M25.551 - Pain in right hip (4) History of lumbar spinal fusion: Code(s): Z98.1 - Arthrodesis status (5) Lumbar degenerative disc disease: Code(s): M51.36 - Other intervertebral disc degeneration, lumbar region Plan Schedule Diagnostic Right Sacroiliac Joint Injection with local and fluoroscopy. Expectations, risks and benefits were reviewed. Patient is aware she will be contacted to schedule this procedure. We discussed therapeutic SIJ, peripheral nerve stimulation, RFA and SI joint fusion as potential longer term treatments if positive response to nerve block. Lumbar spine xray and MRI of the lumbar spine to assess for neural integrity and compression and follow up on previous abdomen/pelvis CT scan findings in 07/2021 noted for right L5 broken screw with h/o previous posterior L4-S1 fusion. There is mild anterior subluxation of L5 with respect to S1 measuring 5 mm. These findings are unchanged from June [address] Script sent for diclofenac gel per patient's request. All questions and concerns have been answered and patient agreed with the plan. Follow up after SIJ i njection and sooner if needed. Orders: Orders XR lumbar spine 4V min Today M47.816 - Spondylosis without myelopathy or radiculopathy, lumbar region, M53.3 - Sacrococcygeal disorders, not elsewhere classified, Z98.1 - Arthrodesis status MR lumbar spine wo con Today M47.816 - Spondylosis without myelopathy or radiculopathy, lumbar region, M51.36 - Other intervertebral disc degeneration, lumbar region, Z98.1 - Arthrodesis status Medications: New diclofenac sodium 1% (Arthritis Pain (diclofenac)) 4 grams topical QID PRN 100 grams 3RF pain M25.551 - Pain in right hip, M47.816 - Spondylosis without myelopathy or radiculopathy, lumbar region, M53.3 - Sacrococcygeal disorders, not elsewhere classified Coding Level of Care Code New Pt Level 4 (34947) Diagnoses Lumbar spondylosis M47.816 Sacroiliac joint pain M53.3 Right hip pain M25.551 History of lumbar spinal fusion Z98.1 Lumbar degenerative disc disease M51.36
[2023-04-18 09:21] VITALS: BP 146/70; PULSE 68; O2SAT 98; BMI 35.3
== END 2023-04-18 09:41 | disposition home or self-care (01) ==
PROVIDERS: PCP Internal Medicine; Referring Provider Internal Medicine; Visit Provider Nurse Practitioner Family
DX: M47.816 Spondylosis without myelopathy or radiculopathy, lumbar region (principal); M53.3 Sacrococcygeal disorders, not elsewhere classified; M25.551 Pain in right hip; Z98.1 Arthrodesis status; M51.36 Other intervertebral disc degeneration, lumbar region
CPT/HCPCS: 99204

== ENCOUNTER → 2023-04-18 09:10 | Outpatient (BNVA) | payer OTHER, SELFPAY | PROVIDERS: PCP Internal Medicine; Referring Provider Internal Medicine; Visit Provider Nurse Practitioner Family | DX: M47.816 Spondylosis without myelopathy or radiculopathy, lumbar region (principal); M53.3 Sacrococcygeal disorders, not elsewhere classified; M25.551 Pain in right hip; M51.36 Other intervertebral disc degeneration, lumbar region; Z98.1 Arthrodesis status | CPT/HCPCS: 99202 ==

== ENCOUNTER 2023-06-08 16:17 | Outpatient (REF) | payer OTHER, SELFPAY ==
[2023-06-08 16:29] LABS: MANUAL DIFF FLAG NO
[2023-06-08 16:49] LABS: Basophils Percent Auto 0.4 % (0-2); Eosinophils Absolute Auto 0.3 X10*3/uL (0.0-0.4); Eosinophils Percent Auto 4.4 % (0-4); Hematocrit 41.7 % (37.0-47.0); Hemoglobin 13.5 g/dl (12.0-16.0); Imm Gran Abs Auto 0.02 X10*3/uL (0.00-0.03); Imm Gran Pct Auto 0.3 % (0.0-0.4); Lymphocytes Absolute Auto 2.7 X10*3/uL (1.2-4.9); Lymphocytes Percent Auto 36.1 % (20-40); Mean Corpuscular HGB Conc 32.4 g/dl (31.0-35.0); Mean Corpuscular Volume 77.4 fL (80.0-98.0); Mean Platelet Volume 11.6 fL (9.4-12.3); Monocytes Absolute Auto 0.3 X10*3/uL (0.1-1.2); Monocytes Percent Auto 4.4 % (2-11); Neutrophils Absolute Auto 4.1 x10*3/uL (2.0-8.3); Neutrophils Percent Auto 54.4 % (45-73); Platelet Count 218 X10*3/uL (160-400); Red Blood Count 5.39 X10*6/uL (4.20-5.50); Red Cell Distribution Width 17.5 % (11.0-16.0); White Blood Count 7.5 X10*3/uL (4.8-10.8)
[2023-06-08 16:59] LABS: Estimated Average Glucose 120 mg/dL; Hemoglobin A1c % 5.8 % (<6.0)
[2023-06-08 17:11] LABS: Alanine Aminotransferase 23 U/L (0-31); Albumin Level 4.3 g/dL (3.5-5.0); Alkaline Phosphatase 93 U/L (39-117); Anion Gap 13 (12-20); Aspartate Amino Transferase 24 U/L (5-31); Bilirubin Total 0.4 mg/dL (0.0-1.0); Blood Urea Nitrogen 16 mg/dL (9-16); Calcium 10.2 mg/dL (8.4-10.2); Carbon Dioxide 28 mmol/L (22-29); Chloride 104 mmol/L (96-108); Estimated Glomerular Filt Rate > 60; Glucose Random 91 mg/dL (60-115); Potassium 4.2 mmol/L (3.3-5.1); Sodium 141 mmol/L (135-145); Total Protein 7.5 g/dL (6.5-8.0)
[2023-06-08 17:20] LABS: Ferritin 16 ng/mL (10-250)
== END 2023-06-08 16:18 | disposition home or self-care (01) ==
LOC: HO.LAB 16:17
PROVIDERS: PCP Internal Medicine; Visit Provider Internal Medicine
DX: D64.89 Other specified anemias (principal); E11.9 Type 2 diabetes mellitus without complications; F32.5 Major depressive disorder, single episode, in full remission; I10 Essential (primary) hypertension
CPT/HCPCS: 36415; 80053; 82728; 83036; 85025

== ENCOUNTER 2023-06-30 10:39 | Outpatient (AMB) | payer OTHER, SELFPAY ==
[2023-06-30 10:40] VITALS: BP 119/62; PULSE 61; O2SAT 98; BMI 32.5
--- NOTE | 2023-06-30 10:40 | A.OFFVIS_ITS ---
Intake Vital Signs 06/30/23 10:40 Height 4 ft 11 in Weight 160 lb 14.999 oz BMI 32.5 BP 119/62 Blood Pressure Location Rt brachial Position Sitting Pulse 61 Pulse Source Doppler Pulse Oximetry (%) 98 Oxygen Delivery Method Room Air Intake Visit Reasons: COPD Allergies oxycodone [From Percocet] Allergy (Intermediate, Verified 06/30/23 10:47) rash pollen extracts [POLLEN] Allergy (Intermediate, Verified 06/30/23 10:47) ASTHMA corn Allergy (Verified 06/30/23 10:47) Unknown fish derived [fish] Allergy (Verified 06/30/23 10:47) Unknown peanuts Allergy (Mild, Uncoded 09/16/22 07:48) Rash HPI COPD HPI Details 77-year-old lady, lifetime nonsmoker, fo llowed for severe persistent allergic asthma, environmental allergies, and chronic cough.? Patient continues on trilogy and albuterol MDI with good control of her underlying symptoms. She had a recent exacerbation treated by her primary care with a course of antibiotics and prednisone with partial improvement. However, she still has some wheezing. [facility] Medical History Helicobacter pylori (H. pylori) B12 deficiency Physical exam Mild recurrent major depression Abdominal pain Allergic reaction Asthma-COPD overlap syndrome Ganglion cyst of dorsum of left wrist Skin lesion Urinary incontinence Moderate asthma Cognitive impairment Unstable angina Obese Hypovitaminosis D GERD (gastroesophageal reflux disease) Dyslipidemia Essential hypertension Memory loss History of anxiety Diabetes mellitus Asthma Surgical History H/O: hysterectomy H/O knee surgery History of bladder surgery Previous back surgery Family History Father Diabetes Hypertension Mother Diabetes Hypertension Social History Housing: Apartment Alcohol intake: never Patient Tobacco Use Status: Never used Tobacco e-Cigarette/Vaping Use: Never Used Second Hand Smoke Exposure: No service: No Current occupational status: disabled Cognitive needs: Yes Hearing needs: No Vision needs: No Review of Systems Const Denies daytime sleepiness, Denies excessive sweating, Denies fatigue, Denies fever(s), Denies lethargy, Denies malaise, Denies night sweats, Denies snoring and Denies weight loss Eyes Denies blurry vision and Denies itchy eyes ENT Denies nasal congestion, Denies post nasal drip, Denies sinus pain, Denies sinus pressure and Denies other ( Thrush) Card Denies chest pain, Denies pedal edema, Denies dyspnea, Denies orthopnea and Denies paroxysmal nocturnal dyspnea Resp Denies cough, Denies hemoptysis, Denies excessive phlegm production, Denies dyspnea, Denies snoring and Reports wheezing GI Denies abdominal pain and Denies heartburn Musc Denies myalgias, Denies arthralgias and Denies joint swelling Skin/Breast Denies rash Neuro Denies memory loss and Denies seizure-like activity Psych Denies abnormal sleep pattern, Denies anxiety and Denies memory loss Endo Denies excessive sweating, Denies fatigue and Denies heat intolerance Yvon/Lymph Denies easy bruising Aller/Immun Denies itchy eyes, Denies seasonal rhinorrhea and Reports wheezing Physical Exam Vital Signs: Last Vital Signs Pulse 61 06/30/23 10:40 BP 119/62 06/30/23 10:40 Pulse Ox 98 06/30/23 10:40 Oxygen Delivery Method Room Air 06/30/23 10:40 BMI result Body Mass Index 32.5 Const General: no acute distress and alert Nutritional Appearance: not obese Orientation/consciousness: Other orientation findings ( oriented) HEENT Head: Yes atraumatic Eyes General: appearance normal, both eyes and all related structures Sclerae: sclerae normal EOM: EOMs intact bilaterally Neck Neck: Yes supple Lymphatic: no lymphadenopathy noted Resp Effort & Inspection: normal respiratory effort and no use of accessory muscles Auscultation: wheezes expiratory wheezes (Mild bilateral) Cardio Rate: regular rate Rhythm: regular rhythm Heart sounds: no gallops, no murmurs and no rubs Skin General skin exam: other ( warm) Extrem General: No clubbing, No cyanosis and No edema Assessment & Plan Assessment & Plan (1) Asthma-COPD overlap syndrome: Code(s): J44.9 - Chronic obstructive pulmonary disease, unspecified Plan: Baseline well controlled on Trelegy and albuterol MDI. Continue current regimen. With recent exacerbation partially treated with a course of low-dose prednisone and antibiotics by her primary. Still with some wheezing, will continue prednisone taper. (2) Environmental allergies: Code(s): Z91.09 - Other allergy status, other than to drugs and biological substances Plan: Well controlled on Singulair. Continue current regimen. Medications: New prednisone Take 3 tabs daily for 3 days, then go down by 1 tab every 3 days 10 mg PO DIRECTED 18 tabs 0RF Discontinued prednisone Discontinued Reason: Doctor's Order 40 mg (2 x 20 mg) PO DAILY 5 days 10 tabs 0RF Coding Level of Care Code Est Pt Level 4 (66438) Diagnoses Asthma-COPD overlap syndrome J44.9 Environmental allergies Z91.09
== END 2023-06-30 11:03 | disposition home or self-care (01) ==
PROVIDERS: PCP Internal Medicine; Visit Provider Internal Medicine Pulmonary Disease
DX: J44.9 Chronic obstructive pulmonary disease, unspecified (principal); Z91.09 Other allergy status, other than to drugs and biological substances
CPT/HCPCS: 99214

== ENCOUNTER → 2023-06-30 10:39 | Outpatient (BNVA) | payer OTHER, SELFPAY | PROVIDERS: PCP Internal Medicine; Visit Provider Internal Medicine Pulmonary Disease | DX: J44.9 Chronic obstructive pulmonary disease, unspecified (principal); Z91.09 Other allergy status, other than to drugs and biological substances | CPT/HCPCS: 99212 ==

== ENCOUNTER 2023-07-07 06:05 | Outpatient (REF) | payer OTHER, SELFPAY ==
--- NOTE | ~2023-07-07 | FL_ITS ---
EXAMINATION: XR FLUOROSCOPY WITH IMAGES CLINICAL INFORMATION: Sacrococcygeal disorders, not elsewhere classified. COMPARISON: None available. TECHNIQUE: Fluoroscopy Supervised By: Sasha Stokes. Fluoroscopy Time: 0.0. Cumulative Dose: 0.790 mGy. DAP: 0.0107 Gycm2. Images: 2 images of SI joint. FINDINGS: There is needle positioned adjacent to SI joint. Partially visualized are bilateral S1, L5 and L5 pedicular screws with interconnecting rods for fusion. FL/FL guidance in treatment room IMPRESSION: Fluoroscopy guidance was provided to referring physician during pain management.
--- NOTE | ~2023-07-07 | XR_ITS ---
EXAMINATION: XR LUMBOSACRAL SPINE WITH OBLIQUES CLINICAL INFORMATION: Lumbar spondylosis without myelopathy or radiculopathy. COMPARISON: None available. TECHNIQUE: AP, both oblique, and lateral views of the lumbar spine. Lateral view of the lumbosacral junction. FINDINGS: There is bony demineralization. Vertebral body heights are normal. There has been a prior L4-S1 posterior fusion, with posterior fixator rods and pedicular screws. At L5-S1, there is moderate disc space narrowing and a 6 mm anterolisthesis. The bilateral S1 pedicular screws appear fractured. The remaining disc spaces are well-maintained. No acute fracture or spondylolisthesis is seen. There is a mild anterior spondylosis at L2-L3 and L3-L4. The paravertebral soft tissues are unremarkable. XR/XR lumbar spine 4V min IMPRESSION: There has been a prior posterior fusion at L4-S1. A 6 mm anterolisthesis is seen at L5-S1. The bilateral S1 pedicular screws appear fractured.
== END 2023-07-07 06:06 | disposition home or self-care (01) ==
LOC: HO.XRAY 06:05
PROVIDERS: Referring Provider Nurse Practitioner Family; Visit Provider Internal Medicine
DX: M53.3 Sacrococcygeal disorders, not elsewhere classified (principal); M47.816 Spondylosis without myelopathy or radiculopathy, lumbar region; Z98.1 Arthrodesis status
CPT/HCPCS: 27096; 72110; J2795

== ENCOUNTER 2023-07-07 13:13 | Outpatient (AMB) | payer OTHER, SELFPAY ==
[2023-07-07 14:17] VITALS: BP 122/60; PULSE 74; RESP 12; O2SAT 95; BMI 33.3
--- NOTE | 2023-07-07 14:17 | MHC.OFFVIS ---
Intake Vital Signs 07/07/23 14:17 07/07/23 14:35 Height 4 ft 11 in 4 ft 11 in Weight 165 lb 165 lb BMI 33.3 33.3 BP 122/60 130/62 Blood Pressure Location Lt brachial Lt brachial Position Sitting Sitting Respiration 12 12 Pulse 74 75 Pulse Source Pulse Oximeter Pulse Oximeter Pulse Oximetry (%) 95 96 Oxygen Delivery Method Room Air Room Air Comment Pre-Op Post-OP Intake Visit Reasons: Right Dx SIJ Bending Press Operator Required: Yes Bending Press Operator Language: Insurance Operations Rep Name: Jessica Accompanied by: Family/Other Allergies oxycodone [From Percocet] Allergy (Intermediate, Verified 07/07/23 14:20) rash pollen extracts [POLLEN] Allergy (Intermediate, Verified 07/07/23 14:20) ASTHMA corn Allergy (Verified 07/07/23 14:20) Unknown fish derived [fish] Allergy (Verified 07/07/23 14:20) Unknown peanuts Allergy (Mild, Uncoded 09/16/22 07:48) Rash HPI Right Dx SIJ HPI Details Patient presents for scheduled procedure. Denies any recent cough, cold, infection, fever or other significant changes in medical history since last office visit. [facility] Medical History Helicobacter pylori (H. pylori) B12 deficiency Physical exam Mild recurrent major depression Abdominal pain Allergic reaction Asthma-COPD overlap syndrome Ganglion cyst of dorsum of left wrist Skin lesion Urinary incontinence Moderate asthma Cognitive impairment Unstable angina Obese Hypovitaminosis D GERD (gastroesophageal reflux disease) Dyslipidemia Essential hypertension Memory loss History of anxiety Diabetes mellitus Asthma Surgical History H/O: hysterectomy H/O knee surgery History of bladder surgery Previous back surgery Family History Father Diabetes Hypertension Mother Diabetes Hypertension Social History Housing: Apartment Alcohol intake: never Patient Tobacco Use Status: Never used Tobacco e-Cigarette/Vaping Use: Never Used Second Hand Smoke Exposure: No service: No Current occupational status: disabled Cognitive needs: Yes Hearing needs: No Vision needs: No Physical Exam Vital Signs: Last Vital Signs Pulse 75 07/07/23 14:35 Resp 12 07/07/23 14:35 BP 130/62 07/07/23 14:35 Pulse Ox 96 07/07/23 14:35 Oxygen Delivery Method Room Air 07/07/23 14:35 BMI result Body Mass Index 33.3 Office Procedures Joint Injection/Drain Joint Injection/Drain Details: Diagnostic Sacroiliac Joint Injection, right The procedure, its benefits, and its risks were explained and written informed consent was obtained from the patient. Immediately prior to starting the procedure, a time-out safety check was conducted. The patient's identification, procedure name, procedure site, and procedure laterality were confirmed with the patient. ? Patient was placed prone on the fluoroscopy table and the lumbosacral area was prepped using ChloraPrep and draped with sterile drape in standard fashion. The C-arm was rotated in a contralateral oblique fashion until the medial border of the iliac crest no longer foreshadowed the posterior sacroiliac joint line. The skin and subcutaneous tissue was anesthetized using 1 mL of 0.75% plain lidocaine with 1.5-inch 25-gauge needle in the middle region of the joint line.? A 3.5-inch 22-gauge spinal needle with small bend on the tip was slowly advanced towards the joint line, coaxial to the x-ray beam. Once bony content was obtained, the needle was easily slid into the intra-articular space.? Intra-articular needle position was confirmed using lateral fluoroscopy.? A total volume of 2.5mL of solution containing 0.5% of ropivacaine was injected intra-articularly. The stylet was reinserted and needle was removed. The patient tolerated the procedure well. Patient denied any lower extremity weakness or numbness. Patient was observed for 30 min and was discharged after fulfilling the standard discharge criteria. Coding 77414 - Sacroiliac Procedure code (CPT) selection complete Assessment & Plan Assessment & Plan (1) Sacroiliac joint pain: Code(s): M53.3 - Sacrococcygeal disorders, not elsewhere classified Plan Patient is status post diagnostic right sacroiliac joint injection. Patient tolerated procedure well and was discharged home in stable condition with discharge instructions. All questions were answered. Patient had significant anxiety associated with injection. Would benefit from pre procedural anxiolytic administration 1 2 to hour prior to the procedure in the future. We will follow-up via telephone or in clinic to assess response to therapy. A follow-up appointment was made during today's visit. Coding Level of Care Code Procedure Only Diagnoses Sacroiliac joint pain M53.3 CPT Codes Coding - Joint 9: 93642 - Sacroiliac ([id number])
[2023-07-07 14:35] VITALS: BP 130/62; PULSE 75; RESP 12; O2SAT 96; BMI 33.3
== END 2023-07-07 14:31 | disposition home or self-care (01) ==
LOC: HO.PMCPRC 13:13
PROVIDERS: PCP Internal Medicine; Visit Provider Internal Medicine
DX: M53.3 Sacrococcygeal disorders, not elsewhere classified (principal)
CPT/HCPCS: 27096

== ENCOUNTER 2023-07-21 14:22 | Outpatient (AMB) | payer OTHER, SELFPAY ==
--- NOTE | 2023-07-21 14:28 | MHC.OFFVIS ---
Intake Vital Signs 07/21/23 14:35 Height 4 ft 11 in Weight 163 lb 2 oz BMI 32.9 BP 136/67 Blood Pressure Location Lt brachial Position Sitting Pulse 66 Pulse Source Pulse Oximeter Pulse Oximetry (%) 98 Oxygen Delivery Method Room Air Intake Visit Reasons: s/p right Dx SIJ Intake Note: Pain today 0/[address] Supervisor Required: Yes Maintenance Of Way Supervisor Language: Music Manager Name: family Accompanied by: Family/Other Allergies oxycodone [From Percocet] Allergy (Intermediate, Verified 07/21/23 14:34) rash pollen extracts [POLLEN] Allergy (Intermediate, Verified 07/21/23 14:34) ASTHMA corn Allergy (Verified 07/21/23 14:34) Unknown fish derived [fish] Allergy (Verified 07/21/23 14:34) Unknown peanuts Allergy (Mild, Uncoded 09/16/22 07:48) Rash HPI HPI Comments History of Present Illness Details Patient presents today to assess response to Right Diagnostic SIJ injection on 07/07/[address] Eason. Patient reports 100% ongoing pain relief since procedure with significant improvement in her daily activities, mobility and sleep. Patient reports she was quite anxious during procedure and would like light sedation with future interventional treatments. She agrees to oral Ativan for therapeutic SIJ injections when her pain returns to baseline and she will update our office. We also reviewed stimulative and ablative procedures for a longer term pain management. Denies any recent cough, cold, infection, fever, any significant changes in her medical history, medications or recent hospitalizations. Past Procedures: 07/07/23: Right Diagnostic SIJ injection-100% ongoing pain relief PRIOR: Patient is a pleasant 77 years old Colombian speaking female presents today with right hip and right groin pain. She reports history of previous hip replacement over 4 years ago and previous back surgery L4-S1 posterior fusion at [facility] for both surgeries. She presents with low back pain that radiates into her sacral areas, right buttock and into her right lateral hip and occasionally into right groin with walking, changing positions and weight bearing. Denies any recent falls, trauma, or injury. Reports history of multiple falls in the past. She presents with localized tenderness in the projection of right sacroiliac joint area with minimal tenderness along greater trochanteric bursa. Provocative examination is positive for right SIJ pain. She reports right anterior medial thigh and right medial knee pain with internal right hip rotation but no groin pain. Pain affects her daily activities, functioning, mood, sleep, and quality of life. Denies any fever, weight loss, abdominal pain, bladder or bowel dysfunction or saddle anesthesia. Location Right hip starts in low back and radiates to groin and lateral hip Duration Chronic pain, worsening for the past 5-6 months Characteristics of symptom or complaint Sharp, stabbing, throbbing, aching, shooting Aggravating or associated factors Movements, walking, weight bearing, bending Relieving factors Rest, Tylenol #3, activity modifications, walker with seat Treatment PT, GTB injections -minimal relief Patient reports moderate to severe low back pain in the projection of right sacroiliac joint with negative SLR testing. Moe?s, [place], Pelvic compression and Stinchfield tests are positive on the right. Pain radiates to her right low back, right upper buttock and right lateral hip but not below knee level. Pain has been present for over 6 months. [facility] Medical History Helicobacter pylori (H. pylori) B12 deficiency Physical exam Mild recurrent major depression Abdominal pain Allergic reaction Asthma-COPD overlap syndrome Ganglion cyst of dorsum of left wrist Skin lesion Urinary incontinence Moderate asthma Cognitive impairment Unstable angina Obese Hypovitaminosis D GERD (gastroesophageal reflux disease) Dyslipidemia Essential hypertension Memory loss History of anxiety Diabetes mellitus Asthma Surgical History H/O: hysterectomy H/O knee surgery History of bladder surgery Previous back surgery Family History Father Diabetes Hypertension Mother Diabetes Hypertension Social History Housing: Apartment Alcohol intake: never Patient Tobacco Use Status: Never used Tobacco e-Cigarette/Vaping Use: Never Used Second Hand Smoke Exposure: No service: No Current occupational status: disabled Cognitive needs: Yes Hearing needs: No Vision needs: No Review of Systems Const All systems reviewed & are unremarkable except as noted in HPI and below Physical Exam Vital Signs: Last Vital Signs Pulse 66 07/21/23 14:35 BP 136/67 07/21/23 14:35 Pulse Ox 98 07/21/23 14:35 Oxygen Delivery Method Room Air 07/21/23 14:35 BMI result Body Mass Index 32.9 General: Appears afebrile. Alert and oriented. Mood and affect appropriate. Follows and participates in conversation appropriately. Respiratory effort is unlabored. No cough. Uses walker with seat with ambulation and transfers. Ambulates with bilaterally normal heel strike and toe off, reports imbalance and weakness RLE. Back/Spine/Pelvis Cervical Spine: cervical ROM normal, cervical muscular tenderness and No Cervical spine tenderness Thoracic/Lumbar Spine: thoracic and lumbar spine normal to inspection, Thoracic/lumbar spine scar(s), Lasegue's sign negative, straight leg raise negative bilaterally, pain with thoraco-lumbar ROM, paraspinal muscle tenderness, thoraco-lumbar ROM limited, No thoracic spinal tenderness and lumbar spinal tenderness Pelvis: buttock tenderness on the right and no sciatic notch tenderness Sacroiliac joints: on the right tender to palpation (mild) and on the left nontender Neuro Gait exam (Neuro): Antalgic gait present (mildly) and Assistive device used Motor exam (neuro): Tremors during motor activity present (occasional head tremor) and Other motor observations present ( Frequently moving legs and feet, periodic flexions) Assessment & Plan Assessment & Plan (1) Restless leg syndrome: Code(s): G25.81 - Restless legs syndrome (2) Tremor: Code(s): R25.1 - Tremor, unspecified (3) Sacroiliac joint pain: Code(s): M53.3 - Sacrococcygeal disorders, not elsewhere classified (4) Lumbar spondylosis: Code(s): M47.816 - Spondylosis without myelopathy or radiculopathy, lumbar region Plan Patient is status post diagnostic right sacroiliac joint injection on 07/07/23 with 100% ongoing pain relief. She would like to proceed with Therapeutic Right SIJ injection with oral Ativan, local and fluoroscopy when her pain returns. Expectations, risks and benefits were reviewed. She is aware that diagnostic injection does not provide sustained pain relief. We also reviewed stimulative and ablative procedures for a longer pain management. Neurology referral for RLS and occasional head tremor, which is worse during stress and anxiety episodes. All questions and concerns have been answered and patient agreed with the plan. Follow up as needed. Orders: Referrals Neurology Referral G25.81 - Restless legs syndrome, R25.1 - Tremor, unspecified Coding Level of Care Code Est Pt Level 3 (67570) Diagnoses Restless leg syndrome G25.81 Tremor R25.1 Sacroiliac joint pain M53.3 Lumbar spondylosis M47.816
[2023-07-21 14:35] VITALS: BP 136/67; PULSE 66; O2SAT 98; BMI 32.9
== END 2023-07-21 15:01 | disposition home or self-care (01) ==
PROVIDERS: PCP Internal Medicine; Visit Provider Nurse Practitioner Family
DX: G25.81 Restless legs syndrome (principal); M53.3 Sacrococcygeal disorders, not elsewhere classified; M47.816 Spondylosis without myelopathy or radiculopathy, lumbar region
CPT/HCPCS: 99213

== ENCOUNTER → 2023-07-21 14:22 | Outpatient (BNVA) | payer OTHER, SELFPAY | PROVIDERS: PCP Internal Medicine; Visit Provider Nurse Practitioner Family | DX: G25.81 Restless legs syndrome (principal); R25.1 Tremor, unspecified; M53.3 Sacrococcygeal disorders, not elsewhere classified; M47.816 Spondylosis without myelopathy or radiculopathy, lumbar region | CPT/HCPCS: 99212 ==

== ENCOUNTER 2023-12-23 10:05 | Outpatient (AMB) | payer OTHER, SELFPAY ==
--- NOTE | 2023-12-23 10:22 | A.OFFVIS_ITS ---
Vital Signs 12/23/23 10:25 Height 4 ft 11 in Weight 175 lb BMI 35.3 BP 140/63 H Blood Pressure Location Lt brachial Position Sitting Pulse 58 Intake Visit Reasons: appt requested per patient Intake Note: Patient c/o; reports abdominal pain, bloating, reports occasional nausea and headaches, reports occasional vomiting, reports loss of appetite, reports constipation. Principal Security Architect Required: No Principal Security Architect Services: Principal Security Architect Offered & Declined Accompanied by: Daughter Allergies oxycodone [From Percocet] Allergy (Intermediate, Verified 12/23/23 10:26) rash pollen extracts [POLLEN] Allergy (Intermediate, Verified 12/23/23 10:) ASTHMA corn Allergy (Verified 12/23/23 10:) Unknown fish derived [fish] Allergy (Verified 12/23/23 10:) Unknown peanuts Allergy (Mild, Uncoded 12/23/23 10:) Rash HPI HPI appt requested per patient: Details: LAST VISIT: Helicobacter pylori (H. pylori) Will check H pylori. Will send patient for upper endoscopy your future. Currently patient has no symptoms and reports to be feeling much better. GERD (gastroesophageal reflux disease) Continue dietary triggers and avoid late night snacking. Staying upright for minimum 3 hours after meals discussed with patient. Continue omeprazole. Patient will be sent for upper endoscopy your future patient had a upper endoscopy in the past 9 years ago that showed mild active gastritis with H pylori then as well. Chronic idiopathic constipation Patient reports that Trulance is helpful. I will see her in 3 months, sooner on as needed basis. Patient is agreeable to plan of care and verbalizes understanding of instructions. She was given the opportunity to ask questions and all questions answered. ? Thank you for allowing me to participate in her care Plan Orders Orders H pylori Ag Stool Today K21.9 TODAY'S VISIT Patient is here today for follow-up. Patient reports to continue to have epigastric discomfort as well as dyspepsia. Patient denies any dysphagia or odynophagia. Reports that she continues to be constipated. Tried Trulance in the past however it was not working. Patient is on Trulicity for diabetes. Currently taking omeprazole and feels like this medication is not helping her. Patient is taking omeprazole twice a day. Patient reports that she used to take senna and feels like that was helping her to move her bowels. Patient denies any melena, hematochezia. Reports occasional dry heaving nausea and vomiting. Patient denies any unintentional weight loss. [facility] Medical History Helicobacter pylori (H. pylori) B12 deficiency Physical exam Mild recurrent major depression Abdominal pain Allergic reaction Asthma-COPD overlap syndrome Ganglion cyst of dorsum of left wrist Skin lesion Urinary incontinence Moderate asthma Cognitive impairment Unstable angina Obese Hypovitaminosis D GERD (gastroesophageal reflux disease) Dyslipidemia Essential hypertension Memory loss History of anxiety Diabetes mellitus Asthma Surgical History H/O: hysterectomy H/O knee surgery History of bladder surgery Previous back surgery Family History Father Diabetes Hypertension Mother Diabetes Hypertension Social History Housing: Apartment Alcohol intake: never Patient Tobacco Use Status: Never used Tobacco e-Cigarette/Vaping Use: Never Used Second Hand Smoke Exposure: No service: No Current occupational status: disabled Cognitive needs: Yes Hearing needs: No Vision needs: No Review of Systems Const Denies weight gain and Denies weight loss ENT Reports no additional complaints, Denies dysphagia and Denies odynophagia Card Reports no additional complaints Resp Reports no additional complaints GI Reports abdominal pain (Epigastric), Denies belching, Denies melena, Reports bloating, Denies change in bowel habits, Reports constipation, Denies dysphagia, Denies excessive flatus, Denies dyspepsia, Reports heartburn, Denies diarrhea, Denies nausea, Denies odynophagia and Denies vomiting Reports no additional complaints Musc Reports no additional complaints Neuro Reports no additional complaints Psych Reports no additional complaints Endo Reports no additional complaints Physical Exam Vital Signs: Last Vital Signs Pulse 58 12/23/23 10:25 BP 140/63 H 12/23/23 10:25 BMI result Body Mass Index 35.3 Const General: healthy appearing and no acute distress Nutritional Appearance: obese Orientation/consciousness: patient oriented x3 Resp Effort & Inspection: normal respiratory effort, able to speak in complete sentences, no tracheal deviation and symmetric chest movement Auscultation: clear to auscultation bilaterally Cardio Rate: regular rate GI Inspection: Yes normal to inspection, No distended and Yes obesity Palpation (GI): Soft to palpation, not firm, nontender and No hepatosplenomegaly present Auscultation: normal bowel sounds General: Yes no CVA tenderness Back/Spine/Pelvis Back: no CVA tenderness Skin General skin exam: elasticity normal, turgor normal and dry skin Neuro General: patient oriented x3 Psych Appearance: grossly normal Mental Status: mental status grossly normal Assessment & Plan Assessment & Plan (1) Helicobacter pylori (H. pylori): Code(s): A04.8 - Other specified bacterial intestinal infections Category: Medical (2) GERD (gastroesophageal reflux disease): Code(s): K21.9 - Gastro-esophageal reflux disease without esophagitis Category: Medical Qualifiers: Esophagitis presence: esophagitis presence not specified Qualified Code(s): K21.9 - Gastro-esophageal reflux disease without esophagitis (3) Chronic idiopathic constipation: Code(s): K59.04 - Chronic idiopathic constipation (4) Postprandial epigastric pain: Code(s): R10.13 - Epigastric pain (5) Postprandial abdominal bloating: Code(s): R14.0 - Abdominal distension (gaseous) Plan Patient will stop omeprazole and start Nexium in the morning and famotidine at bedtime. Avoid dietary triggers and late night snacking. Staying upright for minimum 3 hours after meals discussed with patient. Patient will start taking Senokot at bedtime 2 tablets. Increase fluid intake and activity to promote better bowel motility follow-up in the office in 2-3 months, sooner on as needed basis. She is agreeable to this plan and verbalizes understanding of instructions. She was given the opportunity to ask questions and all questions answered. Thank you for allowing me to participate in her care Medications: New esomeprazole magnesium (Nexium) 40 mg PO DAILY 30 caps 5RF K21.9 - Gastro- esophageal reflux disease without esophagitis sennosides (Natural Senna Laxative) 17.2 mg (2 x 8.6 mg) PO BEDTIME 60 tabs 3RF constipation K59.00 - Constipation, unspecified famotidine 40 mg PO BEDTIME 30 tabs 3RF K21.9 - Gastro-esophageal reflux disease without esophagitis Discontinued omeprazole Discontinued Reason: Doctor's Order 40 mg PO BID 180 caps 3RF J45.50 - Severe persistent asthma, uncomplicated Coding Level of Care Code Est Pt Level 3 (03316) Diagnoses Helicobacter pylori (H. pylori) A04.8 Gastroesophageal reflux disease, unspecified whether esophagitis present K21.9 Esophagitis presence: esophagitis presence not specified Chronic idiopathic constipation K59.04 Postprandial epigastric pain R10.13 Postprandial abdominal bloating R14.0 Time Spent (min) 30 Comment 20 minutes spent with patient and additional 10 minutes spent reviewing her records
[2023-12-23 10:25] VITALS: BP 140/63; PULSE 58; BMI 35.3
== END 2023-12-23 10:56 | disposition home or self-care (01) ==
PROVIDERS: PCP Internal Medicine; Visit Provider Nurse Practitioner Family
DX: A04.8 Other specified bacterial intestinal infections (principal); K21.9 Gastro-esophageal reflux disease without esophagitis; K59.04 Chronic idiopathic constipation; R10.13 Epigastric pain; R14.0 Abdominal distension (gaseous)
CPT/HCPCS: 99213

== ENCOUNTER → 2023-12-23 10:05 | Outpatient (BNVA) | payer OTHER, SELFPAY | PROVIDERS: PCP Internal Medicine; Visit Provider Nurse Practitioner Family | DX: K21.9 Gastro-esophageal reflux disease without esophagitis (principal); K59.04 Chronic idiopathic constipation; R10.13 Epigastric pain; R14.0 Abdominal distension (gaseous); A04.8 Other specified bacterial intestinal infections | CPT/HCPCS: 99212 ==

== ENCOUNTER 2023-12-27 10:00 | Outpatient (REF) | payer OTHER, SELFPAY ==
[2023-12-27 11:27] LABS: Estimated Average Glucose 131 mg/dL; Hemoglobin A1c % 6.2 % (<6.0)
[2023-12-27 11:40] LABS: Alanine Aminotransferase 23 U/L (0-31); Albumin Level 4.7 g/dL (3.5-5.0); Alkaline Phosphatase 87 U/L (39-117); Anion Gap 15 (12-20); Aspartate Amino Transferase 29 U/L (5-31); Bilirubin Total 0.6 mg/dL (0.0-1.0); Blood Urea Nitrogen 11 mg/dL (9-16); Calcium 10.4 mg/dL (8.4-10.2); Carbon Dioxide 28 mmol/L (22-29); Chloride 105 mmol/L (96-108); Cholesterol 137 mg/dL (<200); Estimated Glomerular Filt Rate 59; Glucose Random 122 mg/dL (60-115); HDL Cholesterol 43 mg/dL (>40); LDL Cholesterol Calculated 73 mg/dL (<100); Potassium 4.7 mmol/L (3.3-5.1); Sodium 143 mmol/L (135-145); Total Protein 8.5 g/dL (6.5-8.0); Triglycerides 108 mg/dL (<150)
[2023-12-27 11:54] LABS: Creatinine Urine 297.43 mg/dL
[2023-12-27 11:56] LABS: Ferritin 94 ng/mL (10-250); Thyroid Stimulating Hormone 1.91 uIU/mL (0.32-4.0)
[2023-12-27 11:57] LABS: Folate 11.4 ng/mL (> or = 4.0); Vitamin B12 896 pg/mL (200-900)
[2023-12-27 12:18] LABS: Microalbum/Creatinine Ratio Ur 337.2 ug/mg cr (<30)
== END 2023-12-27 10:01 | disposition home or self-care (01) ==
LOC: HO.LAB 10:00
PROVIDERS: PCP Internal Medicine; Visit Provider Internal Medicine
DX: D64.9 Anemia, unspecified (principal); E11.9 Type 2 diabetes mellitus without complications; E78.00 Pure hypercholesterolemia, unspecified; F02.80 Dementia in other diseases classified elsewhere, unspecified severity, without behavioral disturbance, psychotic disturbance, mood disturbance, and anxiety; F32.2 Major depressive disorder, single episode, severe without psychotic features; F51.5 Nightmare disorder; I10 Essential (primary) hypertension
CPT/HCPCS: 36415; 80053; 80061; 82043; 82570; 82607; 82728; 82746; 83036; 84443

== ENCOUNTER 2024-01-26 09:42 | Outpatient (AMB) | payer OTHER, SELFPAY ==
[2024-01-26 09:53] VITALS: BP 100/60; PULSE 83; O2SAT 97; BMI 35.1
--- NOTE | 2024-01-26 09:53 | A.OFFVIS_ITS ---
Vital Signs 01/26/24 09:53 Height 4 ft 11 in Weight 174 lb BMI 35.1 BP 100/60 Blood Pressure Location Rt brachial Position Sitting Pulse 83 Pulse Source Doppler Pulse Oximetry (%) 97 Oxygen Delivery Method Room Air Intake Visit Reasons: COPD Welt Cutter Required: Yes Welt Cutter Name: Ramona Guthrie ColetteAbdias Allergies oxycodone [From Percocet] Allergy (Intermediate, Verified 12/23/23 10:26) rash pollen extracts [POLLEN] Allergy (Intermediate, Verified 12/23/23 10:26) ASTHMA corn Allergy (Verified 12/23/23 10:26) Unknown fish derived [fish] Allergy (Verified 12/23/23 10:26) Unknown peanuts Allergy (Mild, Uncoded 12/23/23 10:) Rash HPI HPI COPD: Details: 78-year-old lady, lifetime nonsmoker, followed for severe persistent allergic asthma, environmental allergies, and chronic cough.? Patient continues on Trelegy and albuterol MDI with good control of her underlying symptoms. She has been using Singulair to control her allergy symptoms. [facility] Medical History Helicobacter pylori (H. pylori) B12 deficiency Physical exam Mild recurrent major depression Abdominal pain Allergic reaction Asthma-COPD overlap syndrome Ganglion cyst of dorsum of left wrist Skin lesion Urinary incontinence Moderate asthma Cognitive impairment Unstable angina Obese Hypovitaminosis D GERD (gastroesophageal reflux disease) Dyslipidemia Essential hypertension Memory loss History of anxiety Diabetes mellitus Asthma Surgical History H/O: hysterectomy H/O knee surgery History of bladder surgery Previous back surgery Family History Father Diabetes Hypertension Mother Diabetes Hypertension Social History Housing: Apartment Alcohol intake: never Patient Tobacco Use Status: Never used Tobacco e-Cigarette/Vaping Use: Never Used Second Hand Smoke Exposure: No service: No Current occupational status: disabled Cognitive needs: Yes Hearing needs: No Vision needs: No Review of Systems Const Denies daytime sleepiness, Denies excessive sweating, Denies fatigue, Denies fever(s), Denies lethargy, Denies malaise, Denies night sweats, Denies snoring and Denies weight loss Eyes Denies blurry vision and Denies itchy eyes ENT Denies nasal congestion, Denies post nasal drip, Denies sinus pain, Denies sinus pressure and Denies other ( Thrush) Card Denies chest pain, Denies pedal edema, Denies dyspnea, Denies orthopnea and Denies paroxysmal nocturnal dyspnea Resp Denies cough, Denies hemoptysis, Denies excessive phlegm production, Denies dyspnea, Denies snoring and Denies wheezing GI Denies abdominal pain and Denies heartburn Musc Denies myalgias, Denies arthralgias and Denies joint swelling Skin/Breast Denies rash Neuro Denies memory loss and Denies seizure-like activity Psych Denies abnormal sleep pattern, Denies anxiety and Denies memory loss Endo Denies excessive sweating, Denies fatigue and Denies heat intolerance Yvon/Lymph Denies easy bruising Aller/Immun Denies itchy eyes, Denies seasonal rhinorrhea and Denies wheezing Physical Exam Vital Signs: Last Vital Signs Pulse 83 01/26/24 09:53 BP 100/60 01/26/24 09:53 Pulse Ox 97 01/26/24 09:53 Oxygen Delivery Method Room Air 01/26/24 09:53 BMI result Body Mass Index 35.1 Const General: no acute distress and alert Nutritional Appearance: not obese Orientation/consciousness: Other orientation findings ( oriented) HEENT Head: Yes atraumatic Eyes General: appearance normal, both eyes and all related structures Sclerae: sclerae normal EOM: EOMs intact bilaterally Neck Neck: Yes supple Lymphatic: no lymphadenopathy noted Resp Effort & Inspection: normal respiratory effort and no use of accessory muscles Auscultation: clear to auscultation bilaterally Cardio Rate: regular rate Rhythm: regular rhythm Heart sounds: no gallops, no murmurs and no rubs Skin General skin exam: other ( warm) Extrem General: No clubbing, No cyanosis and No edema Assessment & Plan Assessment & Plan (1) Environmental allergies: Code(s): Z91.09 - Other allergy status, other than to drugs and biological substances Category: Medical Plan: Well controlled on Singulair. Continue current regimen. (2) Severe persistent allergic asthma: Code(s): J45.50 - Severe persistent asthma, uncomplicated Category: Medical Plan: Well controlled Trelegy and albuterol MDI/nebs. Continue current regimen. Coding Level of Care Code Est Pt Level 4 (14610) Diagnoses Environmental allergies Z91.09 Severe persistent allergic asthma J45.50
== END 2024-01-26 10:12 | disposition home or self-care (01) ==
PROVIDERS: PCP Internal Medicine; Visit Provider Internal Medicine Pulmonary Disease
DX: Z91.09 Other allergy status, other than to drugs and biological substances (principal); J45.50 Severe persistent asthma, uncomplicated
CPT/HCPCS: 99214

== ENCOUNTER → 2024-01-26 09:42 | Outpatient (BNVA) | payer OTHER, SELFPAY | PROVIDERS: PCP Internal Medicine; Visit Provider Internal Medicine Pulmonary Disease | DX: J45.50 Severe persistent asthma, uncomplicated (principal); Z91.09 Other allergy status, other than to drugs and biological substances | CPT/HCPCS: 99212 ==

== ENCOUNTER 2024-03-23 09:53 | Outpatient (AMB) | payer OTHER, SELFPAY ==
[2024-03-23 10:13] VITALS: PULSE 58; O2SAT 97; BMI 35.0
--- NOTE | 2024-03-23 10:13 | A.OFFVIS_ITS ---
Vital Signs 03/23/24 10:13 Height 4 ft 11 in Weight 173 lb 4.533 oz BMI 35.0 Blood Pressure Location Rt brachial Position Sitting Pulse 58 Pulse Source Pulse Oximeter Pulse Oximetry (%) 97 Oxygen Delivery Method Room Air Comment Unable to obtain auto BP. Requires manual Intake Visit Reasons: 3 month follow up Intake Note: PRESCRIPTIONS LAST GENERATED sennosides 8.6 mg tablet?(Natural Senna Laxative)?17.2 mg (2 x 8.6 mg) PO BEDTIME 60 tabs 3RF Harvinder,Joseline D 12/23/23 10:49 (Transmitted) famotidine 40 mg tablet?40 mg PO BEDTIME 30 tabs 3RF Harvinder,Joseline D 12/23/23 10:49 (Transmitted) esomeprazole magnesium 40 mg capsule,delayed release?(Nexium)?40 mg PO DAILY 30 caps 5RF Harvinder,Joseline D 12/23/23 10:49 (Transmitted) Relevant Flags or Indicators ? Requires Colorist Photography? Sola Stephens presents in office today for a scheduled 3 mos FUV. CC; No recent labs, diagnostics placed. PCP did order labs. Relevant GI Sx as reported per pt? Nausea * Reflux -- Controlled well with omeprazole. ? Fecal abnormalities o?? Discolored? Pt does report seeing some hematochezia, possibly related to straining/hemorrhoids. o?? Constipation ? Abdominal Pain - Umbilical per pt. o?? Early satiety ? Bloating ? Abdominal distention ? Hx of any recent surgeries? None Colorist Photography Required: Yes Colorist Photography Services: Colorist [employer] Present Colorist Photography Name: [id number] [place]. Allergies oxycodone [From Percocet] Allergy (Intermediate, Verified 03/23/24 10:14) rash pollen extracts [POLLEN] Allergy (Intermediate, Verified 03/23/24 10:14) ASTHMA corn Allergy (Verified 03/23/24 10:14) Unknown fish derived [fish] Allergy (Verified 03/23/24 10:14) Unknown peanuts Allergy (Mild, Uncoded 12/23/23 10:26) Rash HPI HPI 3 month follow up: Details: LAST VISIT: Helicobacter pylori (H. pylori) GERD (gastroesophageal reflux disease) Chronic idiopathic constipation Postprandial epigastric pain Postprandial abdominal bloating Plan Patient will stop omeprazole and start Nexium in the morning and famotidine at bedtime. Avoid dietary triggers and late night snacking. Staying upright for minimum 3 hours after meals discussed with patient. Patient will start taking Senokot at bedtime 2 tablets. Increase fluid intake and activity to promote better bowel motility follow-up in the office in 2-3 months, sooner on as needed basis. She is agreeable to this plan and verbalizes understanding of instructions. She was given the opportunity to ask questions and all questions answered. ? Thank you for allowing me to participate in her care Medications New esomeprazole magnesium (Nexium) 40 mg PO DAILY 30 caps 5RF K21.9 sennosides (Natural Senna Laxative) 17.2 mg (2 x 8.6 mg) PO BEDTIME 60 tabs 3RF constipation K59.00 famotidine 40 mg PO BEDTIME 30 tabs 3RF K21.9 Discontinued omeprazole Discontinued Reason: Doctor's Order 40 mg PO BID 180 caps 3RF J45.50 TODAY'S VISIT Patient is here today for follow-up. Patient reports that she continues to have epigastric pain postprandially. She is taking Nexium in the morning and famotidine at bedtime. Patient is not avoiding dietary triggers. She has not change her diet. She reports constipation not always taking Senokot. Patient reports that occasionally she will strain to have a bowel movement and she will have blood in his stool after BM. Patient denies actual melena, hematochezia. Patient denies any unintentional weight loss or ribbon like stools. Patient admits to feeling full quickly no med what she eats. Patient denies any nausea or vomiting. Patient is taking corticosteroid inhalers and does not always rinse her mouth after using it. [facility] Medical History Helicobacter pylori (H. pylori) B12 deficiency Physical exam Mild recurrent major depression Abdominal pain Allergic reaction Asthma-COPD overlap syndrome Ganglion cyst of dorsum of left wrist Skin lesion Urinary incontinence Moderate asthma Cognitive impairment Unstable angina Obese Hypovitaminosis D GERD (gastroesophageal reflux disease) Dyslipidemia Essential hypertension Memory loss History of anxiety Diabetes mellitus Asthma Surgical History H/O: hysterectomy H/O knee surgery History of bladder surgery Previous back surgery Family History Father Diabetes Hypertension Mother Diabetes Hypertension Social History Housing: Apartment Alcohol intake: never Patient Tobacco Use Status: Never used Tobacco e-Cigarette/Vaping Use: Never Used Second Hand Smoke Exposure: No service: No Current occupational status: disabled Cognitive needs: Yes Hearing needs: No Vision needs: No Review of Systems Const Denies weight gain and Denies weight loss ENT Reports no additional complaints, Denies dysphagia and Denies odynophagia Card Reports no additional complaints Resp Reports no additional complaints GI Denies abdominal pain, Reports belching, Denies melena, Reports bloating, Denies change in bowel habits, Reports constipation, Denies dysphagia, Denies excessive flatus, Denies dyspepsia, Reports heartburn, Denies diarrhea, Denies loose stools, Denies nausea, Denies odynophagia and Denies vomiting Reports no additional complaints Musc Reports no additional complaints Neuro Reports no additional complaints Psych Reports no additional complaints Endo Reports no additional complaints Physical Exam Vital Signs: Last Vital Signs Pulse 58 03/23/24 10:13 Pulse Ox 97 03/23/24 10:13 Oxygen Delivery Method Room Air 03/23/24 10:13 BMI result Body Mass Index 35.0 Const General: healthy appearing and no acute distress Nutritional Appearance: obese Orientation/consciousness: patient oriented x3 Resp Effort & Inspection: normal respiratory effort, able to speak in complete sentences, no tracheal deviation and symmetric chest movement Auscultation: clear to auscultation bilaterally Cardio Rate: regular rate GI Inspection: Yes normal to inspection, No distended and Yes obesity Palpation (GI): Soft to palpation, not firm, nontender and No hepatosplenomegaly present Auscultation: normal bowel sounds General: Yes no CVA tenderness Back/Spine/Pelvis Back: no CVA tenderness Skin General skin exam: elasticity normal, turgor normal and dry skin Neuro General: patient oriented x3 Psych Appearance: grossly normal Mental Status: mental status grossly normal Assessment & Plan Assessment & Plan (1) Helicobacter pylori (H. pylori): Code(s): A04.8 - Other specified bacterial intestinal infections Category: Medical (2) GERD (gastroesophageal reflux disease): Code(s): K21.9 - Gastro-esophageal reflux disease without esophagitis Category: Medical Qualifiers: Esophagitis presence: esophagitis presence not specified Qualified Code(s): K21.9 - Gastro-esophageal reflux disease without esophagitis (3) Chronic idiopathic constipation: Code(s): K59.04 - Chronic idiopathic constipation (4) Postprandial epigastric pain: Code(s): R10.13 - Epigastric pain (5) Postprandial abdominal bloating: Code(s): R14.0 - Abdominal distension (gaseous) Plan Patient can continue taking Nexium in the morning and famotidine at bedtime. Avoid dietary triggers in late night snacking. Eating smaller meals and more often. History of H pylori back in 2021. Ideally before patient goes for en doscopy we can stop PPI and put her on sucralfate 2 weeks before the procedure, so we can test her for H pylori infection via biopsy. Continue avoiding dietary triggers and late night snacking. Staying upright for minimum 3 hours after meals discussed with patient. Patient will follow-up in the office in 3 months, sooner on as needed basis. She is agreeable to this plan and verbalizes understanding of instructions. She was given the opportunity to ask questions and all questions answered. Thank you for allowing me to participate in her care Medications: Changed From simethicone 125 mg PO To simethicone (Gas Relief Extra Strength) 125 mg PO BID-TID PRN 90 caps 2RF abdominal distention Refilled sennosides (Natural Senna Laxative) 17.2 mg (2 x 8.6 mg) PO BEDTIME 60 tabs 3RF constipation K59.00 - Constipation, unspecified esomeprazole magnesium (Nexium) 40 mg PO DAILY 30 caps 5RF K21.9 - Gastro- esophageal reflux disease without esophagitis famotidine 40 mg PO BEDTIME 30 tabs 3RF K21.9 - Gastro-esophageal reflux disease without esophagitis Coding Level of Care Code Est Pt Level 4 (08402) Diagnoses Helicobacter pylori (H. pylori) A04.8 Gastroesophageal reflux disease, unspecified whether esophagitis present K21.9 Esophagitis presence: esophagitis presence not specified Chronic idiopathic constipation K59.04 Postprandial epigastric pain R10.13 Postprandial abdominal bloating R14.0 Time Spent (min) 35 Comment 20 minutes spent with patient and additional 15 minutes spent reviewing her records
== END 2024-03-23 10:57 | disposition home or self-care (01) ==
LOC: HO.HGI 09:53
PROVIDERS: PCP Internal Medicine; Visit Provider Nurse Practitioner Family
DX: A04.8 Other specified bacterial intestinal infections (principal); K21.9 Gastro-esophageal reflux disease without esophagitis; K59.04 Chronic idiopathic constipation; R10.13 Epigastric pain; R14.0 Abdominal distension (gaseous)
CPT/HCPCS: 99214

== ENCOUNTER → 2024-03-23 09:53 | Outpatient (BNVA) | payer OTHER, SELFPAY | PROVIDERS: PCP Internal Medicine; Visit Provider Nurse Practitioner Family | DX: K21.9 Gastro-esophageal reflux disease without esophagitis (principal); A04.8 Other specified bacterial intestinal infections; K59.04 Chronic idiopathic constipation; R10.13 Epigastric pain; R14.0 Abdominal distension (gaseous) | CPT/HCPCS: 99212 ==

== ENCOUNTER 2024-07-16 10:03 | Outpatient (REF) | payer OTHER, SELFPAY ==
[2024-07-16 10:38] LABS: MANUAL DIFF FLAG NO
[2024-07-16 10:58] LABS: Basophils Percent Auto 0.4 % (0-2); Eosinophils Absolute Auto 0.2 X10*3/uL (0.0-0.4); Eosinophils Percent Auto 4.5 % (0-4); Hematocrit 41.6 % (37.0-47.0); Hemoglobin 13.5 g/dl (12.0-16.0); Imm Gran Abs Auto 0.01 X10*3/uL (0.00-0.03); Imm Gran Pct Auto 0.2 % (0.0-0.4); Lymphocytes Absolute Auto 1.6 X10*3/uL (1.2-4.9); Lymphocytes Percent Auto 32.3 % (20-40); Mean Corpuscular HGB Conc 32.5 g/dl (31.0-35.0); Mean Corpuscular Hemoglobin 27.3 pg (27.0-33.0); Mean Platelet Volume 12.5 fL (9.4-12.3); Monocytes Absolute Auto 0.3 X10*3/uL (0.1-1.2); Monocytes Percent Auto 6.1 % (2-11); Neutrophils Absolute Auto 2.8 x10*3/uL (2.0-8.3); Neutrophils Percent Auto 56.5 % (45-73); Platelet Count 151 X10*3/uL (160-400); Red Blood Count 4.95 X10*6/uL (4.20-5.50); White Blood Count 4.9 X10*3/uL (4.8-10.8)
[2024-07-16 11:11] LABS: Estimated Average Glucose 123 mg/dL; Hemoglobin A1C 142.4121 umol/L; Hemoglobin A1c % 5.9 % (<6.0); Total Hemoglobin (HGBA1C) 3479.2699 umol/L
--- OUTSIDE RECORDS SUMMARY | 2024-07-16 11:13 | XMS_ITS | Encounter Summary ---
Author Organization [employer] Address [address] [facility] [address] [place] [address] Care Team Providers Care Fabrication Operator Name Role Phone Unavailable Primary Care Provider Unavailabl e Reason for Visit * Reason Comments Med Refill Encounter Details Date Type Department Care Team (Late st Contact Info) Description 02/19/2023 Refill [facility] [address] [place] [address] Dennis Deras MD [address] [place] [address] Social History Tobacco Use Types Packs/Day Years Used Date Smoking Tobacco: Never Assessed Comments Unknown Sex and Gender Information Value Date Recorded Sex Assigned at Female 03/22/2022 10:21 AM EDT Legal Sex Female 10:21 AM EDT Gender Identity Female 03/22/2022 10:21 AM EDT Sexual Orientation Straight 03/22/2022 10 :21 AM EDT documented as of this encounter Plan of Treatment Not on file documented as of this encounter Visit Diagnoses Not on filedocumented in this encounter
--- OUTSIDE RECORDS SUMMARY | 2024-07-16 11:13 | XMS_ITS | Encounter Summary ---
Author Organization [facility] Address [address] [place] [address] 7 [place] [address] Care Team Providers Care Open Hearth Furnace Laborer Name Role Phone Dennis Deras MD Primary Care Provider [phone] Reason for Visit * Reason Comments Med Refill Encounter Details Date Type Department Care Team (Late st Contact Info) Description 07/25/2022 Refill [facility] [address] [place], [place] [phone] Dennis Deras MD [address] [place], [place] [phone] Social History Tobacco Use Types Packs/Day Years [...] Diagnoses Not on filedocumented in this encounter Care Teams Open Hearth Furnace Laborer Relationship Specialty Start Date End Date Dennis Deras MD [address] [place] [address] PCP - General Internal Medicine 05/30/13 12/23/22 documented as of this encounter
--- OUTSIDE RECORDS SUMMARY | 2024-07-16 11:13 | XMS_ITS | Encounter Summary ---
Author Organization [employer] Address [address] [facility] [address] [place] [address] Care Team Providers Care Surgical First Assistant Name Role Phone Unavailable Primary Care Provider Unavailabl e Reason for Visit * Reason Comments Med Refill Encounter Details Date Type Department Care Team (Late st Contact Info) Description 05/26/2023 Refill [facility] [address] [place] [address] Dennis Deras MD [address] [place] [address] Recurrent major depressive disorder, in partial remission (CMS/HCC) Social History Tobacco Use Types Packs/Day Years [...] documented as of this encounter Visit Diagnoses Diagnosis Recurrent major depressive disorder, in partial remission (CMS/HCC) documented in this encounter
--- OUTSIDE RECORDS SUMMARY | 2024-07-16 11:13 | XMS_ITS | Encounter Summary ---
Author Organization [employer] Address [address] [place] [address] [address] [place] [address] Care Team Providers Care Dental Laboratory Technician Apprentice Name Role Phone Unavailable Primary Care Provider Unavailabl e Reason for Visit * Reason Comments Med Refill Encounter Details Date Type Department Care Team (Late st Contact Info) Description 08/25/2023 Refill [facility]S [address] [place] [address] Dennis Deras MD [address] [place] [address] Social History Tobacco Use Types Packs/Day Years [...]
--- OUTSIDE RECORDS SUMMARY | 2024-07-16 11:13 | XMS_ITS | Clinical Summary ---
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 (CMS/[facility]) TEST BLOOD SUGAR TWICE DAILY 100 strip 11 08/10/2022 Active simvastatin (Zocor) 20 MG tablet TAKE ONE TABLET BY MOUTH EVERY EVENING 90 tablet 3 08/23/2022 Active PARoxetine (Paxil) 20 MG tabletIndication s:Recurrent major depressive disorder, in partial remission (CMS/[facility]) TAKE ONE TABLET BY MOUTH EVERY MORNING 30 tablet 5 11/16/2022 Active Social History Tobacco Use Types Packs/Day Years Used Date Smoking Tobacco: Never Assessed Comments Unknown Sex and Gender Information Value Date Recorded Sex Assigned at Female 03/22/2022 10:21 AM EDT Legal Sex Female 10:21 AM EDT Gender Identity Female 03/22/2022 10:21 AM EDT Sexual Orientation Straight 03/22/2022 10 :21 AM EDT Last Filed Vital Signs Vital Sign Reading Time Taken Comments Blood Pressure 118/60 11/20/2019 12:06 AM EDT Pulse 80 11/20/2019 12:06 AM EDT Temperature - - Respiratory Rate - - Oxygen Saturation - - Inhaled Oxygen Concentration - - Weight 84.8 kg (187 lb) 11/20/2019 12:06 AM EDT Height 152.4 cm (5') 11/20/2019 12:06 AM EDT Body Mass Index 36.52 11/20/2019 12:06 AM EDT Plan of Treatment Health Maintenance Due Date Last Done Comments Depression Screening 1945 Alcohol/Substance Use Screening 1957 Tobacco Screening 1957 Pneumococcal Vaccine: 50+ Years (2 of 2 - PCV) 11/17/2013 11/17/2012 Zoster Vaccines (2 of 3) 08/12/2015 06/17/2015 RSV Patients and Patients Aged 60 years or older (1 - 1-dose 75+ series) 2020 DTaP/Tdap/Td Vaccines (2 - T d or Tdap) 11/17/2022 11/17/2012 COVID-19 Vaccine (4 - 2023-2 5 season) 2024 07/22/2021, 08/27/2020, 07/30/2020 Influenza Vaccine (#1) 2024 HIB Vaccines Aged Out No longer eligi ble based on patient's age to complete this topic HPV Vaccines Aged Out No longer eligi ble based on patient's age to complete this topic Hepatitis A Vaccines Aged Out No long er eligible based on patient's age to complete this topic Hepatitis B Vaccines Aged Out No long er eligible based on patient's age to complete this topic IPV Vaccines Aged Out No longer eligi ble based on patient's age to complete this topic Meningococcal Vaccine Aged Out No lucía olinda eligible based on patient's age to complete this topic RSV under 20 months Aged Out No longe r eligible based on patient's age to complete this topic Rotavirus Vaccines Aged Out No longer eligible based on patient's age to complete this topic
--- OUTSIDE RECORDS SUMMARY | 2024-07-16 11:13 | XMS_ITS | Encounter Summary ---
Author Organization [facility] Address [address] [place] [address] [address] [place] [address] Care Team Providers Care Tower Supervisor Name Role Phone Dennis Deras MD Primary Care Provider [phone] Reason for Visit * Reason Comments Med Refill Encounter Details Date Type Department Care Team (Late st Contact Info) Description 08/26/2022 Refill [facility] MED & PEDS [address] [place], [place] [phone] Debra Nye MD [address] [place] [address] Unspecified asthma, uncomplicated Social History Tobacco Use Types Packs/Day Years [...] as of this encounter Visit Diagnoses Diagnosis Unspecified asthma, uncomplicated documented in this encounter Care Teams Tower Supervisor Relationship Specialty Start Date End Date Dennis Deras MD [address] [place] [address] PCP - General Internal Medicine 05/30/13 12/23/22 documented as of this encounter
[2024-07-16 12:22] LABS: Alanine Aminotransferase 26 U/L (0-31); Albumin Level 4.2 g/dL (3.5-5.0); Alkaline Phosphatase 65 U/L (39-117); Anion Gap 12 (12-20); Aspartate Amino Transferase 30 U/L (5-31); Bilirubin Total 0.6 mg/dL (0.0-1.0); Blood Urea Nitrogen 13 mg/dL (9-16); Calcium 9.4 mg/dL (8.4-10.2); Carbon Dioxide 28 mmol/L (22-29); Chloride 107 mmol/L (96-108); Estimated Glomerular Filt Rate > 60; Glucose Random 105 mg/dL (60-115); Potassium 3.9 mmol/L (3.3-5.1); Sodium 143 mmol/L (135-145); Total Protein 7.6 g/dL (6.5-8.0)
[2024-07-16 14:34] LABS: Parathyroid Hormone Intact 119.4 pg/mL (8.7-77.1)
[2024-07-18 21:43] LABS: Prot Elec - Albumin 4.1 g/dL (3.8-4.8); Prot Elec - Alpha1 0.3 g/dL (0.2-0.3); Prot Elec - Alpha2 0.8 g/dL (0.5-0.9); Prot Elec - Beta 1 0.4 g/dL (0.4-0.6); Prot Elec - Beta 2 0.4 g/dL (0.2-0.5); Prot Elec - Gamma 0.9 g/dL (0.8-1.7); Prot Elec - Total Protein 6.9 g/dL (6.1-8.1)
== END 2024-07-16 10:04 | disposition home or self-care (01) ==
LOC: HO.LAB 10:03
PROVIDERS: PCP Internal Medicine; Visit Provider Internal Medicine
DX: E11.9 Type 2 diabetes mellitus without complications (principal); E83.52 Hypercalcemia; D89.2 Hypergammaglobulinemia, unspecified; R80.0 Isolated proteinuria
CPT/HCPCS: 36415; 80053; 83036; 83970; 84100; 84165; 85025

== ENCOUNTER 2024-08-24 10:35 | Outpatient (AMB) | payer OTHER, SELFPAY ==
--- NOTE | 2024-08-24 10:42 | A.OFFVIS_ITS ---
Vital Signs 08/24/24 11:00 Height 4 ft 11 in Weight 176 lb 12.972 oz BMI 35.7 BP 144/70 H Blood Pressure Location Rt brachial Position Sitting Pulse 58 Pulse Source Pulse Oximeter Pulse Oximetry (%) 98 Oxygen Delivery Method Room Air Intake Visit Reasons: 4 mo GERD dicuss endo/colo Intake Note: ESTABLISHED PATIENT for Mgmt of GERD, constipation, discuss upper endoscopy and colonoscopy Chief Complaint; C/O constipation and diarrhea intermittently, RLQ pain, and reflux intermittently. Pt confirms she is taking the medications as directed. Pt reports presentation has remained somewhat unchanged since last visit. Electric Locomotive Firer/Fireman Required: Yes Electric Locomotive Firer/Fireman Services: Electric Locomotive Firer/Fireman Offered & Declined Accompanied by: Daughter Allergies oxycodone [From Percocet] Allergy (Intermediate, Verified 08/24/24 10:42) rash pollen extracts [POLLEN] Allergy (Intermediate, Verified 08/24/24 10:42) ASTHMA peanut Allergy (Unknown, Verified 08/24/24 10:42) Rash corn Allergy (Verified 08/24/24 10:42) Unknown fish derived [fish] Allergy (Verified 08/24/24 10:42) Unknown HPI HPI 4 mo GERD dicuss endo/colo: Details: LAST VISIT 03/23/2024 Helicobacter pylori (H. pylori) GERD (gastroesophageal reflux disease) Chronic idiopathic constipation Postprandial epigastric pain Postprandial abdominal bloating Plan Patient can continue taking Nexium in the morning and famotidine at bedtime. Avoid dietary triggers in late night snacking. Eating smaller meals and more often. History of H pylori back in 2021. Ideally before patient goes for endoscopy we can stop PPI and put her on sucralfate 2 weeks before the procedure, so we can test her for H pylori infection via biopsy. Continue avoiding dietary triggers and late night snacking. Staying upright for minimum 3 hours after meals discussed with patient. Patient will follow-up in the office in 3 months, sooner on as needed basis. She is agreeable to this plan and verbalizes understanding of instructions. She was given the opportunity to ask questions and all questions answered. ? Thank you for allowing me to participate in her care Medications Changed Changed From simethicone 125 mg PO Changed To simethicone (Gas Relief Extra Strength) 125 mg PO BID-TID PRN 90 caps 2RF abdominal distention Refilled sennosides (Natural Senna Laxative) 17.2 mg (2 x 8.6 mg) PO BEDTIME 60 tabs 3RF constipation K59.00 esomeprazole magnesium (Nexium) 40 mg PO DAILY 30 caps 5RF K21.9 famotidine 40 mg PO BEDTIME 30 tabs 3RF K21.9 TODAY'S VISIT Patient is here today for follow-up. Patient reports that she continues to have epigastric pain postprandially and severe bloating. Patient reports that sometimes the bloating is so severe that she has cramping throughout the whole abdomen. Patient does admit that she is constipated although occasionally patient will have postprandial diarrhea. Patient reports that sometimes she does not move her bowels for 2-3 days. She is not using Senokot. Occasionally uses MiraLax as needed. Patient admits that she does not eat vegetables on a regular basis maybe once or twice a week. Mostly patient eats rice and beans. Does not drink enough water. Denies melena, hematochezia, unintentional weight loss or ribbon like stools. Patient does admit that she has hemorrhoids and sometimes when she is constipated she has rectal. Patient reports she is taking Nexium in the morning and famotidine at bedtime. Reports that sometimes she will eat snacks late at night. Patient reports that she only is eating small amounts of food. Denies any nausea or vomiting. Denies any mucus in her stool. COUNT INCLUDES [facility] Medical History Helicobacter pylori (H. pylori) B12 deficiency Physical exam Mild recurrent major depression Abdominal pain Allergic reaction Asthma-COPD overlap syndrome Ganglion cyst of dorsum of left wrist Skin lesion Urinary incontinence Moderate asthma Cognitive impairment Unstable angina Obese Hypovitaminosis D GERD (gastroesophageal reflux disease) Dyslipidemia Essential hypertension Memory loss History of anxiety Diabetes mellitus Asthma Surgical History H/O: hysterectomy H/O knee surgery History of bladder surgery Previous back surgery Family History Father Diabetes Hypertension Mother Diabetes Hypertension Social History Housing: Apartment Alcohol intake: never Patient Tobacco Use Status: Never used Tobacco e-Cigarette/Vaping Use: Never Used Second Hand Smoke Exposure: No service: No Current occupational status: disabled Cognitive needs: Yes Hearing needs: No Vision needs: No Review of Systems Const Denies weight gain and Denies weight loss ENT Reports no additional complaints, Denies dysphagia and Denies odynophagia Card Reports no additional complaints Resp Reports no additional complaints GI Denies abdominal pain, Reports belching, Denies melena, Reports bloating, Denies change in bowel habits, Reports constipation, Denies dysphagia, Denies excessive flatus, Denies dyspepsia, Reports heartburn, Denies diarrhea, Denies loose stools, Denies nausea, Denies odynophagia and Denies vomiting Reports no additional complaints Musc Reports no additional complaints Neuro Reports no additional complaints Psych Reports no additional complaints Endo Reports no additional complaints Physical Exam Vital Signs: Last Vital Signs Pulse 58 08/24/24 11:00 BP 144/70 H 08/24/24 11:00 Pulse Ox 98 08/24/24 11:00 Oxygen Delivery Method Room Air 08/24/24 11:00 BMI result Body Mass Index 35.7 Const General: healthy appearing and no acute distress Nutritional Appearance: obese Orientation/consciousness: patient oriented x3 Resp Effort & Inspection: normal respiratory effort, able to speak in complete sentences, no tracheal deviation and symmetric chest movement Auscultation: clear to auscultation bilaterally Cardio Rate: regular rate GI Inspection: Yes normal to inspection, No distended and Yes obesity Palpation (GI): Soft to palpation, not firm, nontender and No hepatosplenomegaly present Auscultation: normal bowel sounds General: Yes no CVA tenderness Back/Spine/Pelvis Back: no CVA tenderness Skin General skin exam: elasticity normal, turgor normal and dry skin Neuro General: patient oriented x3 Psych Appearance: grossly normal Mental Status: mental status grossly normal Assessment & Plan Assessment & Plan (1) Helicobacter pylori (H. pylori): Code(s): A04.8 - Other specified bacterial intestinal infections Category: Medical (2) GERD (gastroesophageal reflux disease): Code(s): K21.9 - Gastro-esophageal reflux disease without esophagitis Category: Medical Qualifiers: Esophagitis presence: esophagitis presence not specified Qualified Code(s): K21.9 - Gastro-esophageal reflux disease without esophagitis (3) Chronic idiopathic constipation: Code(s): K59.04 - Chronic idiopathic constipation (4) Postprandial epigastric pain: Code(s): R10.13 - Epigastric pain (5) Postprandial abdominal bloating: Code(s): R14.0 - Abdominal distension (gaseous) Plan Patient was encouraged to take senna daily, increase fluid intake and activity to promote better bowel motility. Patient will continue Nexium in the morning and famotidine at bedtime. Avoid dietary triggers and late night snacking. Patient was encouraged to increase the amount of vegetables couple of vegetables per each servings. Patient reports that she only has vegetables about once or twice a week. Patient will return in 2 months to discuss going for colonoscopy. Message sent to surgical schedulers to book upper endoscopy and colonoscopy for patient. Patient is agreeable to current plan of care and verbalizes understanding of instructions. She was given the opportunity to ask questions and all questions answered. Thank you for allowing me to participate in her care Medications: Refilled sennosides (senna) 17.2 mg (2 x 8.6 mg) PO BEDTIME 60 tabs 3RF for constipation K59.00 - Constipation, unspecified famotidine 40 mg PO BEDTIME 90 tabs 3RF K21.9 - Gastro-esophageal reflux disease without esophagitis esomeprazole magnesium (Nexium) 40 mg PO DAILY 90 caps 2RF K21.9 - Gastro- esophageal reflux disease without esophagitis Coding Level of Care Code Est Pt Level 4 (23063) Complex EM visit Add On G2211 Diagnoses Helicobacter pylori (H. pylori) A04.8 Gastroesophageal reflux disease, unspecified whether esophagitis present K21.9 Esophagitis presence: esophagitis presence not specified Chronic idiopathic constipation K59.04 Postprandial epigastric pain R10.13 Postprandial abdominal bloating R14.0 Time Spent (min) 35 Comment 25 minutes spent with patient and additional 10 minutes spent reviewing her records
[2024-08-24 11:00] VITALS: BP 144/70; PULSE 58; O2SAT 98; BMI 35.7
--- OUTSIDE RECORDS SUMMARY | 2024-08-24 12:07 | XMS_ITS | Encounter Summary ---
Author Organization [employer] Address [address] [facility] 7t [place] [address] Care Team Providers Care Textile Machine Maintenance Mechanic Name Role Phone Unavailable Primary Care Provider Unavailabl e Reason for Visit * Reason Comments Med Refill Encounter Details Date Type Department Care Team (Late st Contact Info) Description 05/26/2023 Refill [facility] MED[facility]INE [address] [place] [address] Dennis Deras MD [address] [place] [address] Recurrent major depressive disorder, in partial remission [...]
--- OUTSIDE RECORDS SUMMARY | 2024-08-24 12:07 | XMS_ITS | Encounter Summary ---
Author Organization [employer] Address [address] [facility] 7t [place] [address] Care Team Providers Care Nursing Coordinator Name Role Phone Unavailable Primary Care Provider Unavailabl e Reason for Visit * Reason Comments Med Refill Encounter Details Date Type Department Care Team (Late st Contact Info) Description 02/19/2023 Refill [facility] MED[facility]INE [address] [place] [address] Dennis Deras MD [address] [place] [address] Social History Tobacco Use Types Packs/Day Years [...]
--- OUTSIDE RECORDS SUMMARY | 2024-08-24 12:07 | XMS_ITS | Encounter Summary ---
Author Organization [employer] [facility] Address [address] [place] [address] 7 [place] [address] Care Team Providers Care Ripening Room Attendant Name Role Phone Dennis Deras MD Primary Care Provider [phone] Reason for Visit * Reason Comments Med Refill Encounter Details Date Type Department Care Team (Late st Contact Info) Description 07/25/2022 Refill [facility] MEDICINE [address] [place], [place] [phone] Dennis Deras MD [address] [place], [place] [phone] Social History Tobacco Use Types Packs/Day Years [...] on filedocumented in this encounter Care Teams Ripening Room Attendant Relationship Specialty Start Date End Date Dennis Deras MD [address] [place] [address] PCP - General Internal Medicine 05/30/13 12/23/22 documented as of this encounter
--- OUTSIDE RECORDS SUMMARY | 2024-08-24 12:07 | XMS_ITS | Encounter Summary ---
Author Organization [employer] [facility] Address [address] [place] [address] [address] [place] [address] Care Team Providers Care Screen Examiner Name Role Phone Dennis Deras MD Primary Care Provider [phone] Reason for Visit * Reason Comments Med Refill Encounter Details Date Type Department Care Team (Late st Contact Info) Description 08/26/2022 Refill [facility] [address] [place], [place] [phone] Debra Nye MD [address] [place] [address] Unspecified asthma, uncomplicated Social History Tobacco Use [...] uncomplicated documented in this encounter Care Teams Screen Examiner Relationship Specialty Start Date End Date Dennis Deras MD [address] [place] [address] PCP - General Internal Medicine 05/30/13 12/23/22 documented as of this encounter
--- OUTSIDE RECORDS SUMMARY | 2024-08-24 12:07 | XMS_ITS | Encounter Summary ---
Author Organization [employer] Address [address] [place] [address] [address] [place] [address] Care Team Providers Care Body Maker Name Role Phone Unavailable Primary Care Provider Unavailabl e Reason for Visit * Reason Comments Med Refill Encounter Details Date Type Department Care Team (Late st Contact Info) Description 08/25/2023 Refill [facility]S [address] [place] [address] Dennis Deras MD [address] [place] [address] Social History Tobacco Use Types Packs/Day Years [...]
--- OUTSIDE RECORDS SUMMARY | 2024-08-24 12:07 | XMS_ITS | Clinical Summary ---
Author Organization [employer] [facility] Address [address] [facility] 7t [place] [address] Care Team Providers Care Associate Professor Of Medicine Name Role Phone Unavailable Primary Care Provider Unavailabl e Medications glucose blood (FREESTYLE LITE) test stripIndications :Type 2 diabetes mellitus with hyperglycemia, unspecified whether detention insulin use (CMS/[facility]) TEST BLOOD SUGAR TWICE DAILY 100 strip 11 08/10/2022 Active simvastatin (Zocor) 20 MG tablet TAKE ONE TABLET BY MOUTH EVERY EVENING 90 tablet 3 08/23/2022 Active PARoxetine (Paxil) 20 MG tabletIndication s:Recurrent major depressive disorder, in partial remission (CMS/HCC) TAKE ONE TABLET BY MOUTH EVERY MORNING [...]
== END 2024-08-24 11:10 | disposition home or self-care (01) ==
LOC: HO.HGI 10:35
PROVIDERS: PCP Internal Medicine; Visit Provider Nurse Practitioner Family
DX: A04.8 Other specified bacterial intestinal infections (principal); K21.9 Gastro-esophageal reflux disease without esophagitis; K59.04 Chronic idiopathic constipation; R10.13 Epigastric pain; R14.0 Abdominal distension (gaseous)
CPT/HCPCS: 99214; G2211

== ENCOUNTER → 2024-08-24 10:35 | Outpatient (BNVA) | payer OTHER, SELFPAY | PROVIDERS: PCP Internal Medicine; Visit Provider Nurse Practitioner Family | DX: K21.9 Gastro-esophageal reflux disease without esophagitis (principal); K59.04 Chronic idiopathic constipation; K59.00 Constipation, unspecified; R19.7 Diarrhea, unspecified; R10.31 Right lower quadrant pain; A04.8 Other specified bacterial intestinal infections; R10.13 Epigastric pain; R14.0 Abdominal distension (gaseous) | CPT/HCPCS: 99212 ==

== ENCOUNTER 2024-10-30 13:46 | Outpatient (AMB) | payer OTHER, SELFPAY ==
[2024-10-30 13:49] VITALS: BP 150/70; PULSE 61; O2SAT 98; BMI 35.3
--- NOTE | 2024-10-30 13:49 | A.OFFVIS_ITS ---
Vital Signs 10/30/24 13:49 Height 4 ft 11 in Weight 175 lb BMI 35.3 BP 150/70 H Blood Pressure Location Lt brachial Position Sitting Pulse 61 Pulse Source Pulse Oximeter Pulse Oximetry (%) 98 Oxygen Delivery Method Room Air Intake Visit Reasons: COPD Sorting Machine Attendant Required: Yes Sorting Machine Attendant Name: Ramona [email or web address] Allergies oxycodone [From Percocet] Allergy (Intermediate, Verified 10/30/24 13:56) rash pollen extracts [POLLEN] Allergy (Intermediate, Verified 10/30/24 13:56) ASTHMA peanut Allergy (Unknown, Verified 10/30/24 13:56) Rash corn Allergy (Verified 10/30/24 13:56) Unknown fish derived [fish] Allergy (Verified 10/30/24 13:56) Unknown HPI HPI COPD: Details: 78-year-old lady, lifetime nonsmoker, followed for severe persistent allergic asthma, environmental allergies, and chronic cough.? Patient continues on Trelegy and albuterol MDI with good control of her underlying symptoms. She has been using Singulair to control her allergy symptoms. She denies any recent exacerbations. [facility] Medical History Helicobacter pylori (H. pylori) B12 deficiency Physical exam Mild recurrent major depression Abdominal pain Allergic reaction Asthma-COPD overlap syndrome Ganglion cyst of dorsum of left wrist Skin lesion Urinary incontinence Moderate asthma Cognitive impairment Unstable angina Obese Hypovitaminosis D GERD (gastroesophageal reflux disease) Dyslipidemia Essential hypertension Memory loss History of anxiety Diabetes mellitus Asthma Surgical History H/O: hysterectomy H/O knee surgery History of bladder surgery Previous back surgery Family History Father Diabetes Hypertension Mother Diabetes Hypertension Social History Housing: Apartment Alcohol intake: never Patient Tobacco Use Status: Never used Tobacco e-Cigarette/Vaping Use: Never Used Second Hand Smoke Exposure: No service: No Current occupational status: disabled Cognitive needs: Yes Hearing needs: No Vision needs: No Review of Systems Const Denies daytime sleepiness, Denies excessive sweating, Denies fatigue, Denies fever(s), Denies lethargy, Denies malaise, Denies night sweats, Denies snoring and Denies weight loss Eyes Denies blurry vision and Denies itchy eyes ENT Denies nasal congestion, Denies post nasal drip, Denies sinus pain, Denies sinus pressure and Denies other ( Thrush) Card Denies chest pain, Denies pedal edema, Denies dyspnea, Denies orthopnea and Denies paroxysmal nocturnal dyspnea Resp Reports cough (Intermittent), Denies hemoptysis, Denies excessive phlegm production, Denies dyspnea, Denies snoring and Denies wheezing GI Denies abdominal pain and Denies heartburn Musc Denies myalgias, Denies arthralgias and Denies joint swelling Skin/Breast Denies rash Neuro Denies memory loss and Denies seizure-like activity Psych Denies abnormal sleep pattern, Denies anxiety and Denies memory loss Endo Denies excessive sweating, Denies fatigue and Denies heat intolerance Yvon/Lymph Denies easy bruising Aller/Immun Denies itchy eyes, Denies seasonal rhinorrhea and Denies wheezing Physical Exam Vital Signs: Last Vital Signs Pulse 61 10/30/24 13:49 BP 150/70 H 10/30/24 13:49 Pulse Ox 98 10/30/24 13:49 Oxygen Delivery Method Room Air 10/30/24 13:49 BMI result Body Mass Index 35.3 Const General: no acute distress and alert Nutritional Appearance: obese Orientation/consciousness: Other orientation findings ( oriented) HEENT Head: Yes atraumatic Eyes General: appearance normal, both eyes and all related structures Sclerae: sclerae normal EOM: EOMs intact bilaterally Neck Neck: Yes supple Lymphatic: no lymphadenopathy noted Resp Effort & Inspection: normal respiratory effort and no use of accessory muscles Auscultation: clear to auscultation bilaterally Cardio Rate: regular rate Rhythm: regular rhythm Heart sounds: no gallops, no murmurs and no rubs Skin General skin exam: other ( warm) Extrem General: No clubbing, No cyanosis and No edema Assessment & Plan Assessment & Plan (1) Severe persistent allergic asthma: Code(s): J45.50 - Severe persistent asthma, uncomplicated Category: Medical Plan: Well controlled on current regimen of Trelegy and albuterol MDI. Continue current regimen. (2) Environmental allergies: Code(s): Z91.09 - Other allergy status, other than to drugs and biological substances Category: Medical Plan: Reasonable control on Singulair and environment coordinator prescribed Dupixent. Continue current regimen. Coding Level of Care Code Est Pt Level 4 (08603) Diagnoses Severe persistent allergic asthma J45.50 Environmental allergies Z91.09
--- OUTSIDE RECORDS SUMMARY | 2024-10-30 16:18 | XMS_ITS | Encounter Summary ---
Author Organization [employer] Address [address] [facility] [address] [place] [address] Care Team Providers Care Smudger Name Role Phone Unavailable Primary Care Provider Unavailabl e Reason for Visit * Reason Comments Med Refill Encounter Details Date Type Department Care Team (Late st Contact Info) Description 02/19/2023 Refill [facility] MEDICINE [address] [place] [address] Dennis Deras MD [address] [place] [address] Social History Tobacco Use Types Packs/Day Years [...]
== END 2024-10-30 14:04 | disposition home or self-care (01) ==
LOC: HO.HPS 13:47
PROVIDERS: PCP Internal Medicine; Visit Provider Internal Medicine Pulmonary Disease
DX: J45.50 Severe persistent asthma, uncomplicated (principal); Z91.09 Other allergy status, other than to drugs and biological substances
CPT/HCPCS: 99214

== ENCOUNTER → 2024-10-30 13:46 | Outpatient (BNVA) | payer OTHER, SELFPAY | PROVIDERS: PCP Internal Medicine; Visit Provider Internal Medicine Pulmonary Disease | DX: J45.50 Severe persistent asthma, uncomplicated (principal); Z91.09 Other allergy status, other than to drugs and biological substances | CPT/HCPCS: 99212 ==

== ENCOUNTER 2024-11-08 12:40 | Outpatient (REF) | payer OTHER, SELFPAY ==
[2024-11-08 13:32] LABS: Estimated Average Glucose 148 mg/dL; Hemoglobin A1c % 6.8 % (<6.0)
--- OUTSIDE RECORDS SUMMARY | 2024-11-08 13:43 | XMS_ITS | Encounter Summary ---
Author Organization [employer] Address [address] [facility] [address] [place] [address] Care Team Providers Care Advertising Teacher Name Role Phone Unavailable Primary Care Provider Unavailabl e Reason for Visit * Reason Comments Med Refill Encounter Details Date Type Department Care Team (Late st Contact Info) Description 02/19/2023 Refill [facility] MEDICINE [address] [place] [address] Dennis Deras MD [address] [place] [address] Social History Tobacco Use Types Packs/Day Years [...]
[2024-11-08 14:22] LABS: Alanine Aminotransferase 38 U/L (0-31); Albumin Level 4.4 g/dL (3.5-5.0); Alkaline Phosphatase 78 U/L (39-117); Anion Gap 11 (12-20); Aspartate Amino Transferase 44 U/L (5-31); Bilirubin Total 0.6 mg/dL (0.0-1.0); Blood Urea Nitrogen 12 mg/dL (9-16); Calcium 9.5 mg/dL (8.4-10.2); Carbon Dioxide 31 mmol/L (22-29); Chloride 105 mmol/L (96-108); Estimated Glomerular Filt Rate > 60; Glucose Random 89 mg/dL (60-115); Potassium 4.1 mmol/L (3.3-5.1); Sodium 143 mmol/L (135-145)
[2024-11-08 14:44] LABS: Vitamin D 25-OH Total 28.6 ng/mL (>30)
== END 2024-11-08 12:41 | disposition home or self-care (01) ==
LOC: HO.LAB 12:40
PROVIDERS: PCP Internal Medicine; Visit Provider Internal Medicine
DX: E11.9 Type 2 diabetes mellitus without complications (principal); E21.2 Other hyperparathyroidism; E66.9 Obesity, unspecified; R51.9 Headache, unspecified; R80.8 Other proteinuria
CPT/HCPCS: 36415; 80053; 82306; 83036

== ENCOUNTER 2024-11-11 11:55 | Emergency (ER) | payer OTHER, SELFPAY ==
--- NOTE | ~2024-11-11 | XR_ITS ---
CLINICAL HISTORY: coughing, and SOB Single view of the chest. COMPARISON: None provided. FINDINGS: Low lung volumes. Cardiomegaly. Bronchial wall thickening. Blunting of the right costophrenic angle. No pneumothorax. No acute fracture. IMPRESSION: 1. Low lung volumes. 2. Bronchial wall thickening. Nonspecific finding can be seen with pulmonary edema or a multifocal infectious or inflammatory process. 3. Question small right pleural effusion. This document has been electronically signed by: Nj Ambrosio MD on 11/11/2024 13:11:21
[2024-11-11 12:02] VITALS: BP 181/80; PULSE 73; RESP 26; TEMP 36.7; O2SAT 99; BMI 32.2
--- NOTE | 2024-11-11 12:06 | ED_ITS ---
HPI - Asthma General Chief Complaint: Asthma Stated Complaint: Asthmatic Time Seen by Provider: 11/11/24 12:19 Source: patient, family and product director Mode of arrival: ambulatory Limitations: language barrier History of Present Illness ED Provider: HPI Narrative: pt with diabetes mellitus type 2, hypertension, asthma-COPD overlap syndrome presenting with shortness of breath over the past 4-5 days, using nebulizer inhalers without much relief, no sick contacts, does report headache chest pain, has been wheezing, here with her daughter. Cough more or less intermittent and it sounds like it has been getting worse since yesterday. Related Data Home Medications ?Medication ?Instructions ?Recorded ?Confirmed albuterol sulfate 90 mcg/actuation 0 mcg inhalation 09/16/22 aerosol inhaler bismuth subsalicylate 262 mg 2 tab PO QID 06/28/22 chewable tablet (Stomach Relief) brimonidine 0.2 % eye drops 0 drp ophthalmic (eye) 11/1209/16/22 hydroxyzine HCl 25 mg tablet 0 mg PO 06/28/22 09/16/22 latanoprost 0.005 % eye drops 0 drp ophthalmic (eye) 0 06/28/22 09/16/22 dupilumab 300 mg/2 mL subcutaneous mg subcut 04/18/23 pen injector (DupixOnState) tacrolimus 0.1 % topical ointment 1 appl topical BID 1 06/18/22 triamcinolone acetonide 0.025 % topical 04/18/23 lotion ferrous fumarate 325 mg (106 mg 325 mg PO DAILY iron) tablet (Ferretts) meloxicam 7.5 mg tablet 7.5 mg PO DAILY 07/07/23 metformin 500 mg tablet,extended 500 mg PO BID 4 release 24 hr atorvastatin 20 mg tablet 20 mg PO DAILY 12/23/23 losartan 100 mg tablet 100 mg PO DAILY 12/23/23 amiodarone 200 mg tablet 200 mg PO DAILY 03/23/24 prazosin 1 mg capsule 1 mg PO BEDTIME 03/23/24 sertraline 50 mg tablet 50 mg PO DAILY 03/23/24 fluocinonide 0.05 % topical cream appl topical 5 Previous Rx's ?Medication ?Instructions ?Recorded albuterol sulfate 2.5 mg/3 mL 2.5 mg (3 mL) inhalation Q4H PRN 01/18/22 (0.083 %) solution for nebulization bronchospasm 30 da ys #75 mL baclofen 10 mg tablet 10 mg PO Q8H 90 days #270 ta bs 05/02/22 Held on 06/28/22. Instructions: Doctor's Order nitroglycerin 0.4 mg sublingual 0.4 mg sublingual Q5M PRN chest 06/28/22 tablet (Nitrostat) pain 90 days #90 tabs TRUEplus Lancets 33 gauge (lancets) ##100 07/28/22 disposable gloves (Biobrane Gloves #200 ea 08/31/22 Large) underpads 30 X 36 (Certainty #40 ea 08/31/22 Underpads) alclometasone 0.05 % topical cream 1 appl topical BID 30 days #15 09/13/22 grams adult diapers pull-ups #240 ea 10/14/22 wipes #1 ea 10/14/22 acetaminophen 300 mg-codeine 15 mg 1 tab PO BID PRN pa in 28 days #56 11/08/22 tablet tabs diclofenac sodium 1 % topical gel 4 g topical QID PRN pain #100 grams 04/18/23 (Arthritis Pain (diclofenac)) alcohol swabs 1 pad topical BID 90 days #2 00 ea 05/21/23 loratadine 10 mg tablet 10 mg PO DAILY 90 days #90 t abs 08/25/23 montelukast 10 mg tablet 10 mg PO DAILY 90 days #90 t abs 08/25/23 dulaglutide 1.5 mg/0.5 mL 1.5 mg (0.5 mL) subcut QWEEK #2 mL 08/29/23 subcutaneous pen injector polyethylene glycol 3350 17 gram 17 g PO DAILY #100 ea 10/23/23 oral powder packet (Miralax) paroxetine HCl 20 mg tablet 20 mg PO DAILY 90 days #90 tabs 11/30/23 simethicone 125 mg capsule (Gas 125 mg PO BID-TID PRN abdominal 03/23/24 Relief Extra Strength) distention #90 caps cyanocobalamin (vitamin B-12) 1,000 mcg PO QAM #90 tab s 07/18/24 1,000 mcg tablet fluticasone fur. 100 mcg-umeclid 1 inh inhalation NEO Y 30 days #28 08/12/24 62.5 mcg-vilant 25 mcg ea inhalat.powder (Trelegy Ellipta) esomeprazole magnesium 40 mg 40 mg PO DAILY #90 caps 0 08/24/24 capsule,delayed release (Nexium) famotidine 40 mg tablet 40 mg PO BEDTIME #90 tabs sennosides 8.6 mg tablet (senna) 17.2 mg (2 x 8.6 mg) PO BEDTIME 08/24/24 for constipation #60 tabs calcium carbonate (Oyster Shell 500 mg PO DAILY #90 ta bs 09/17/24 Calcium 500) aspirin 81 mg tablet,delayed 81 mg PO DAILY 90 days #9 0 tabs 10/17/24 release cholecalciferol (vitamin D3) 50 50 mcg PO DAILY 90 day s #90 caps 10/17/24 mcg (2,000 unit) capsule benzonatate 200 mg capsule 200 mg PO TID PRN cough #14 caps 11/11/24 lidocaine-prilocaine 2.5 %-2.5 % 2 g topical DAILY 30 days #25 grams 11/11/24 topical cream prednisone 20 mg tablet 40 mg (2 x 20 mg) PO DAILY 5 days 11/11/24 #10 tabs Allergies Allergy/AdvReac Type Severity Reaction Status Date / Time oxycodone (From Percocet) Allergy Intermediate rash Verified 11/11/24 12:05 pollen extracts (POLLEN) Allergy Intermediate ASTHMA Verified 11/11/24 12:05 peanut Allergy Unknown Rash Verified 11/11/24 12:05 corn Allergy Unknown Verified 11/11/24 12:05 fish derived (fish) Allergy Unknown Verified 11/11/24 12:05 soda Allergy Unknown Uncoded 11/11/24 12:06 Review of Systems 2 Constitutional: Constitutional: Reports as per [facility] Past Medical History Medical History Helicobacter pylori (H. pylori) B12 deficiency Physical exam Mild recurrent major depression Abdominal pain Allergic reaction Asthma-COPD overlap syndrome Ganglion cyst of dorsum of left wrist Skin lesion Urinary incontinence Moderate asthma Cognitive impairment Unstable angina Obese Hypovitaminosis D GERD (gastroesophageal reflux disease) Dyslipidemia Essential hypertension Memory loss History of anxiety Diabetes mellitus Asthma Surgical History H/O: hysterectomy H/O knee surgery History of bladder surgery Previous back surgery Family History Family History Father Diabetes Hypertension Mother Diabetes Hypertension Social History Social History Housing: Apartment Alcohol intake: never Patient Tobacco Use Status: Never used Tobacco Smoked in Last 30 Days: No e-Cigarette/Vaping Use: Never Used Second Hand Smoke Exposure: No Use of substances other than those prescribed or required for medical reasons: No Advance Directives: No Advance Directives Information Provided: Yes Do you have a plan to hurt others: No Plan service: No Current occupational status: disabled Cognitive needs: Yes Hearing needs: No Vision needs: No Physical Exam 2 Vital Signs: Vital Signs: Last Vital Signs Temp 98.1 F 11/11/24 15:02 Pulse 68 11/11/24 15:02 Resp 16 11/11/24 15:02 BP 140/63 H 11/11/24 15:02 Pulse Ox 96 11/11/24 15:02 O2 Del Method Room Air 11/11/24 15:02 BMI result Body Mass Index 32.2 Const: Other: * Gen: ?In respiratory discomfort * HEENT: PERRLA, EOMI, MMM, * Neck: Supple, no LAD * CV: RRR, no obvious murmurs appreciated * Resp: ?Tachypneic with expiratory wheezing throughout * Abd: ?Bowel sounds are present, no tenderness no rebound no rigidity * Skin: Warm, dry, intact, no lower extremity edema * Neuro: ?Alert and oriented x3, moving upper and lower extremities symmetrically, no obvious facial asymmetry noted Course Course Course Narrative: RME; 78-year-old female history of asthma presents to ED for shortness of breath coughing and audible wheezing. Patient states having symptoms for the past 4 days. Triage positive for audible wheezing. Patient is hypotensive. Labs EKG chest x-ray ordered. Treatment ordered Medications Administered Discontinued Medications Generic Name Dose Route Start Last Admin Trade Name Freq PRN Reason Stop Dose Admin Albuterol Sulfate 2.5 mg/ 0 mg 11/11/24 12:33 11/11/24 12:41 Albuterol/Ipratropium 3 ml INHALE 11/11/24 12:34 5 dose ONCE ONE Administration Methylprednisolone Sodium Succinate 125 mg 11/11/24 13:30 11/11/24 13:32 Methylprednisolone Sod Succ 125 Mg/2 Ml Vial IVPUSH 11/11/24 13:31 125 mg ONCE ONE Administration Medical Decision Making Medical Decision Making [facility] Narrative: 1231 patient is presenting with wheezing, tachypnea, does have history of COPD and asthma, other consideration includes CHF, pneumonia, ACS, given her wheezing on presentation and her history unlikely PE, we will initiate management, we will re-evaluate, we will escalate to CPAP or admission as necessary, disposition to be determined 14:52 patient re-evaluated, she is breathing much better, wheezing has resolved, prior to that she was try potting that has since resolved and at this point she feels comfortable to be discharged Differential Diagnosis Differential Diagnoses: The differential diagnosis associated with the presentation includes CHF, COPD exacerbation, pneumonia, pneumothorax, ACS, PE, Admission/Observation Consideration of admission/observation: Escalation of care including admission/observation considered Lab Data [facility] Lab Attestation statement: I reviewed the patient's lab results. 11/11/24 12:29 11/11/24 12:29 Labs: Lab Results 11/11/24 11/11/24 Range/Units 12:29 14:46 WBC 5.4 (4.8-10.8) X10*3/uL RBC 4.71 (4.20-5.50) X10*6/uL Hgb 12.8 (12.0-16.0) g/dl Hct 38.6 (37.0-47.0) % MCV 82.0 (80.0-98.0) fL MCH 27.2 (27.0-33.0) pg MCHC 33.2 (31.0-35.0) g/dl RDW 14.0 (11.0-16.0) % Plt Count 142 L (160-400) X10*3/uL MPV 12.7 H (9.4-12.3) fL Immature Gran % (Auto) 0.2 (0.0-0.4) % Neut % (Auto) 72.9 (45-73) % Lymph % (Auto) 17.2 L (20-40) % [place] % (Auto) 6.9 (2-11) % Eos % (Auto) 2.4 (0-4) % Baso % (Auto) 0.4 (0-2) % Lymph # (Auto) 0.9 L (1.2-4.9) X10*3/uL [place] # (Auto) 0.4 (0.1-1.2) X10*3/uL Eos # (Auto) 0.1 (0.0-0.4) X10*3/uL Baso # (Auto) 0.0 (0.0-0.2) X10*3/uL Abs Immat Gran (auto) 0.01 (0.00-0.03) X10*3/uL Absolute Neuts (auto) 3.9 (2.0-8.3) x10*3/uL Absolute Nucleated RBC 0.000 (0.0-0.012) X10*3/uL Nucleated RBC % (auto) 0.0 (0.0-0.2) /100WBC PT 12.9 H (10.9-12.4) SEC INR 1.1 (0.9-1.1) APTT 30.2 (26.0-36.8) SEC Sodium 142 (135-145) mmol/L Potassium 3.9 (3.3-5.1) mmol/L Chloride 106 (96-108) mmol/L Carbon Dioxide 26 (22-29) mmol/L Anion Gap 14 (12-20) BUN 10 (9-16) mg/dL Creatinine 0.73 (0.5-1.4) mg/dL Estim Creat Clear Calc 62.1 Estimated GFR > 60 POC Glucose 144 H (60-115) mg/dL Random Glucose 129 H (60-115) mg/dL Calcium 9.3 (8.4-10.2) mg/dL Total Bilirubin 0.6 (0.0-1.0) mg/dL AST 53 H (5-31) U/L ALT 41 H (0-31) U/L Alkaline Phosphatase 79 (39-117) U/L Troponin I High Sens < 2.7 (<3.5-17.0) ng/L B-Natriuretic Peptide 96 (<100) pg/mL Total Protein 7.3 (6.5-8.0) g/dL Albumin 4.5 (3.5-5.0) g/dL Influenza Type A (PCR) NEGATIVE (Negative) Influenza Type B (PCR) NEGATIVE (Negative) RSV RNA Qual (PCR) NEGATIVE (Negative) SARS-CoV-2 RNA (RT-PCR) NEGATIVE (Negative) Independent Interpretation I performed an independent interpretation of an: EKG and Plain X-Ray (My independent chest xray interpretation: Lungs: Lungs are clear bilaterally without evidence of focal consolidation, pleural effusion, or pneumothorax. Cardiac silhouette is unremarkable, no obvious mediastinal widening, no obvious bony abnormalities such as fractures. Impression: Normal chest X-r) Interpretation: 68 beats per minute sinus rhythm, P waves are present but poorly visible on this ECG as well as prior ECGs not in AFib Radiology Impression Discussion of test interpretation with radiology: I have reviewed the radiologist's reading. Critical Care Time Critical Care Time Total Critical Care Time: 40 Attestation: Time is exclusive of separately billable procedures. Time includes: direct patient care, patient reassessment, coordination of patient care, interpretation of data (laboratory data, pulse oximetry, arterial blood gases and chest xrays), review of patient's medical records, medical consultation and documentation of patient care. Procedures excluded from critical care time: central intravenous line placement and electrocardiography. Discharge Plan Discharge Clinical Impression: Asthma exacerbation Patient Disposition: Home, Self-Care Instructions: Asthma (ED) Additional Instructions: Follow up with the primary care provider, workup today has been reassuring, you presented with shortness of breath in the setting of asthma and COPD , that has resolved with the out management in the ER, worsening issues come back to the ER otherwise follow up with the PCP take medications I am prescribing I would like you to take 2 puffs of the inhaler every 4 hours for the rest of the day Prescriptions: New benzonatate 200 mg capsule 200 mg PO TID PRN (Reason: cough) Qty: 14 0RF prednisone 20 mg tablet 40 mg PO DAILY 5 Days Qty: 10 0RF No Action albuterol sulfate 2.5 mg /3 mL (0.083 %) solution for nebulization 2.5 mg inhalation Q4H PRN (Reason: bronchospasm) 30 Days Qty: 75 4RF baclofen 10 mg tablet 10 mg PO Q8H 90 Days Qty: 270 1RF (DME) lancets [TRUEplus Lancets] 33 gauge misc See Rx Instructions .ROUTE .COMPLEX Qty: 100 11RF Dose Instruction: TEST BLOOD SUGAR TWICE DAILY Rx Instructions: TEST BLOOD SUGAR TWICE DAILY (DME) underpads [Certainty Underpads] 30 X 36 pad See Rx Instructions .ROUTE .MEDSUPPLY Qty: 40 6RF Rx Instructions: Use 1 underpad at bedtime (DME) disposable gloves [Biobrane Gloves Large] Misc See Rx Instructions .Route Qty: 200 11RF Rx Instructions: As directed alclometasone 0.05 % cream 1 appl topical BID 30 Days Qty: 15 2RF (DME) adult diapers pull-ups large See Rx Instructions .Route .MEDSUPPLY Qty: 240 11RF Rx Instructions: As directed (DME) wipes See Rx Instructions .Route .MEDSUPPLY Qty: 1 0RF Rx Instructions: As directed acetaminophen-codeine 300-15 mg tablet 1 tab PO BID PRN (Reason: pain) 28 Days Qty: 56 0RF alcohol swabs Pads, Medicated 1 pad topical BID 90 Days Qty: 200 3RF montelukast 10 mg tablet 10 mg PO DAILY 90 Days Qty: 90 3RF loratadine 10 mg tablet 10 mg PO DAILY 90 Days Qty: 90 3RF dulaglutide 1.5 mg/0.5 mL pen injector 1.5 mg subcut QWEEK Qty: 2 2RF polyethylene glycol 3350 [Miralax] 17 gram powder in packet 17 g PO DAILY Qty: 100 3RF paroxetine HCl 20 mg tablet 20 mg PO DAILY 90 Days Qty: 90 1RF cyanocobalamin (vitamin B-12) 1,000 mcg tablet 1,000 mcg PO QAM Qty: 90 1RF Trelegy Ellipta 100-62.5-25 mcg blister with device 1 inh inhalation DAILY 30 Days Qty: 28 3RF calcium carbonate [Oyster Shell Calcium 500] 500 mg calcium (1,250 mg) tablet 500 mg PO DAILY Qty: 90 1RF aspirin 81 mg tablet,delayed release (DR/EC) 81 mg PO DAILY 90 Days Qty: 90 1RF cholecalciferol (vitamin D3) 50 mcg (2,000 unit) capsule 50 mcg PO DAILY 90 Days Qty: 90 1RF lidocaine-prilocaine 2.5-2.5 % cream 2 g topical DAILY 30 Days Qty: 25 3RF albuterol sulfate 90 mcg/actuation HFA aerosol inhaler 0 mcg inhalation latanoprost 0.005 % drops 0 drp ophthalmic (eye) brimonidine 0.2 % drops 0 drp ophthalmic (eye) bismuth subsalicylate [Stomach Relief] 262 mg tablet,chewable 2 tab PO QID hydroxyzine HCl 25 mg tablet 0 mg PO nitroglycerin [Nitrostat] 0.4 mg tablet, sublingual 0.4 mg sublingual Q5M PRN (Reason: chest pain) 90 Days Qty: 90 1RF Rx Instructions: do not exceed 3 doses per episode Dupixent Pen 300 mg/2 mL pen injector subcut tacrolimus 0.1 % ointment 1 appl topical BID triamcinolone acetonide 0.025 % lotion topical diclofenac sodium [Arthritis Pain (diclofenac)] 1 % gel 4 g topical QID PRN (Reason: pain) Qty: 100 3RF amiodarone 200 mg tablet 200 mg PO DAILY prazosin 1 mg capsule 1 mg PO BEDTIME sertraline 50 mg tablet 50 mg PO DAILY simethicone [Gas Relief Extra Strength] 125 mg capsule 125 mg PO BID-TID PRN (Reason: abdominal distention) Qty: 90 2RF Ferretts 325 mg (106 mg iron) tablet 325 mg PO DAILY metformin 500 mg tablet extended release 24 hr 500 mg PO BID meloxicam 7.5 mg tablet 7.5 mg PO DAILY atorvastatin 20 mg tablet 20 mg PO DAILY losartan 100 mg tablet 100 mg PO DAILY fluocinonide 0.05 % cream topical sennosides [senna] 8.6 mg tablet 17.2 mg PO BEDTIME Qty: 60 3RF esomeprazole magnesium [Nexium] 40 mg capsule,delayed release(DR/EC) 40 mg PO DAILY Qty: 90 2RF famotidine 40 mg tablet 40 mg PO BEDTIME Qty: 90 3RF Referrals: Janene Barillas MD [Primary Care Provider, Medical] - 2 weeks Clinical Impression: Asthma exacerbation Interventions: ED Discharge Assessment Last Done: 11/11/24 15:02 Discharge Date/Time: 11/11/24 15:36 Print Language: Guatemalan
--- NOTE | 2024-11-11 12:06 | ECG_ITS ---
Test Reason : CP Blood Pressure : */* mmHG Vent. Rate : 62 BPM Atrial Rate : * BPM P-R Int : * ms QRS Dur : 88 ms QT Int : 444 ms P-R-T Axes : * -43 62 degrees QTcB Int : 450 ms Normal sinus rhythm Left axis deviation Abnormal ECG When compared with ECG of 22-Feb-2022 11:27, No significant changes seen Referred By: Curly Hardin Electronically Signed By: SHARMIN HUGGINS
[2024-11-11 12:33] LABS: MANUAL DIFF FLAG NO
[2024-11-11 12:35] LABS: Basophils Percent Auto 0.4 % (0-2); Eosinophils Absolute Auto 0.1 X10*3/uL (0.0-0.4); Eosinophils Percent Auto 2.4 % (0-4); Hematocrit 38.6 % (37.0-47.0); Hemoglobin 12.8 g/dl (12.0-16.0); Imm Gran Abs Auto 0.01 X10*3/uL (0.00-0.03); Imm Gran Pct Auto 0.2 % (0.0-0.4); Lymphocytes Absolute Auto 0.9 X10*3/uL (1.2-4.9); Lymphocytes Percent Auto 17.2 % (20-40); Mean Corpuscular HGB Conc 33.2 g/dl (31.0-35.0); Mean Corpuscular Hemoglobin 27.2 pg (27.0-33.0); Mean Platelet Volume 12.7 fL (9.4-12.3); Monocytes Absolute Auto 0.4 X10*3/uL (0.1-1.2); Monocytes Percent Auto 6.9 % (2-11); Neutrophils Absolute Auto 3.9 x10*3/uL (2.0-8.3); Neutrophils Percent Auto 72.9 % (45-73); Platelet Count 142 X10*3/uL (160-400); Red Blood Count 4.71 X10*6/uL (4.20-5.50); White Blood Count 5.4 X10*3/uL (4.8-10.8)
[2024-11-11] MEDS: Albuterol Sulfate 2.5 MG, Albuterol/Iprat 2.5/0.5MG 3 ML 3 ML INHALE (12:41)
[2024-11-11 12:42] VITALS: PULSE 68; RESP 16; O2SAT 98
[2024-11-11 12:44] LABS: INTERNATIONAL NORM RATIO 1.1 (0.9-1.1); Prothrombin Time 12.9 SEC (10.9-12.4)
[2024-11-11 12:46] LABS: Partial Thromboplastin Time 30.2 SEC (26.0-36.8)
[2024-11-11 13:00] LABS: Alanine Aminotransferase 41 U/L (0-31); Albumin Level 4.5 g/dL (3.5-5.0); Alkaline Phosphatase 79 U/L (39-117); Anion Gap 14 (12-20); Aspartate Amino Transferase 53 U/L (5-31); Bilirubin Total 0.6 mg/dL (0.0-1.0); Blood Urea Nitrogen 10 mg/dL (9-16); Calcium 9.3 mg/dL (8.4-10.2); Carbon Dioxide 26 mmol/L (22-29); Chloride 106 mmol/L (96-108); Creatinine Clr Calc Pharmacy 62.1; Estimated Glomerular Filt Rate > 60; Glucose Random 129 mg/dL (60-115); Potassium 3.9 mmol/L (3.3-5.1); Sodium 142 mmol/L (135-145); Total Protein 7.3 g/dL (6.5-8.0)
[2024-11-11 13:02] VITALS: BP 140/63; PULSE 68; RESP 16; TEMP 36.7; O2SAT 96
[2024-11-11 13:05] LABS: B Type Natriuretic Peptide 96 pg/mL (<100)
[2024-11-11 13:08] LABS: Troponin-I High Sensitivity < 2.7 ng/L (<3.5-17.0)
--- OUTSIDE RECORDS SUMMARY | 2024-11-11 13:14 | XMS_ITS | Encounter Summary ---
Author Organization [employer] Address [address] [facility] [address] [place] [address] Care Team Providers Care Metal Ceiling Hanger Name Role Phone Unavailable Primary Care Provider Unavailabl e Reason for Visit * Reason Comments Med Refill Encounter Details Date Type Department Care Team (Late st Contact Info) Description 02/19/[address] [facility] MEDICINE [address] [place] [address] Dennis Deras MD [address] [place] [address] Social History Tobacco Use Types Packs/Day Years [...]
[2024-11-11] MEDS: methylPREDNISolone Sod Succ 125 MG/2 ML VIAL IVPUSH (13:32)
[2024-11-11 13:49] LABS: Influenza A PCR NEGATIVE (Negative); Influenza B PCR NEGATIVE (Negative); Resp Syncy Virus RNA Qual PCR NEGATIVE (Negative); SARS COV2 PCR INHOUSE NEGATIVE (Negative)
[2024-11-11 14:00] VITALS: BP 140/70; PULSE 65; RESP 12; TEMP 36.7; O2SAT 94
[2024-11-11 14:50] LABS: Glucose, Whole Blood 144 mg/dL (60-115)
[2024-11-11 15:02] VITALS: BP 140/63; PULSE 68; RESP 16; TEMP 36.7; O2SAT 96
== END 2024-11-11 15:36 | disposition home or self-care (01) ==
PROVIDERS: Physician Assistant; Emergency Provider Emergency Medicine; PCP Pediatrics
DX: J45.901 Unspecified asthma with (acute) exacerbation (principal); J44.89 Other specified chronic obstructive pulmonary disease; R07.89 Other chest pain; R94.31 Abnormal electrocardiogram [ECG] [EKG]; R06.02 Shortness of breath; Z03.818 Encounter for observation for suspected exposure to other biological agents ruled out; Z79.899 Other long term (current) drug therapy
CPT/HCPCS: 0241U; 71045; 80053; 82947; 83880; 84484; 85025; 85610; 85730; 93005; 94640; 96374; 99284; 99285; J2919

== ENCOUNTER → 2024-11-11 12:06 | Outpatient (BNV) | payer OTHER, SELFPAY | PROVIDERS: Emergency Provider Emergency Medicine; PCP Pediatrics; Visit Provider Internal Medicine | DX: R94.31 Abnormal electrocardiogram [ECG] [EKG] (principal); R07.9 Chest pain, unspecified | CPT/HCPCS: 93010 ==

== ENCOUNTER → 2024-11-11 12:06 | Outpatient (BNV) | payer OTHER, SELFPAY | PROVIDERS: Emergency Provider Emergency Medicine; PCP Pediatrics; Visit Provider Radiology Diagnostic Radiology | DX: J44.9 Chronic obstructive pulmonary disease, unspecified (principal) | CPT/HCPCS: 71045 ==

== ENCOUNTER 2025-02-12 10:24 | Outpatient (REF) | payer OTHER, SELFPAY ==
[2025-02-12 11:14] LABS: Hematocrit 36.5 % (37.0-47.0); Hemoglobin 11.7 g/dl (12.0-16.0); Imm Gran Abs Auto 0.01 X10*3/uL (0.00-0.03); Imm Gran Pct Auto 0.2 % (0.0-0.4); Lymphocytes Absolute Auto 1.5 X10*3/uL (1.2-4.9); Mean Corpuscular HGB Conc 32.1 g/dl (31.0-35.0); Mean Corpuscular Hemoglobin 25.8 pg (27.0-33.0); Mean Corpuscular Volume 80.6 fL (80.0-98.0); NRBC Abs Auto 0.000 X10*3/uL (0.0-0.012); NRBC Pct Auto 0.0 /100WBC (0.0-0.2); Platelet Count 135 X10*3/uL (160-400); Red Blood Count 4.53 X10*6/uL (4.20-5.50); White Blood Count 4.6 X10*3/uL (4.8-10.8)
[2025-02-12 11:19] LABS: Hemoglobin A1C 163.8200 umol/L; Total Hemoglobin (HGBA1C) 3073.9419 umol/L
[2025-02-12 12:39] LABS: Alanine Aminotransferase 34 U/L (0-31); Albumin Level 4.2 g/dL (3.5-5.0); Alkaline Phosphatase 112 U/L (39-117); Anion Gap 13 (12-20); Aspartate Amino Transferase 53 U/L (5-31); Blood Urea Nitrogen 22 mg/dL (9-16); Calcium 9.3 mg/dL (8.4-10.2); Carbon Dioxide 24 mmol/L (22-29); Chloride 110 mmol/L (96-108); Cholesterol 123 mg/dL (<200); Estimated Glomerular Filt Rate > 60; HDL Cholesterol 43 mg/dL (>40); Potassium 3.8 mmol/L (3.3-5.1); Sodium 143 mmol/L (135-145); Total Protein 6.7 g/dL (6.5-8.0); Triglycerides 109 mg/dL (<150)
--- OUTSIDE RECORDS SUMMARY | 2025-02-12 12:44 | XMS_ITS | Encounter Summary ---
Author Organization [employer] Address [address] [place] [address] [address] [place] [address] Care Team Providers Care Diet Counselor Name Role Phone Dennis Deras MD Primary Care Provider [phone] Reason for Visit * Reason Comments Med Refill Encounter Details Date Type Department Care Team (Late st Contact Info) Description 08/26/2022 Refill [facility] PEDS [address] [place], [place] [phone] Debra Nye MD [address] [place] [address] Unspecified asthma, uncomplicated Social History Tobacco Use [...] uncomplicated documented in this encounter Care Teams Diet Counselor Relationship Specialty Start Date End Date Dennis Deras MD [address] [place] [address] PCP - General Internal Medicine 05/30/13 12/23/22 documented as of this encounter
--- OUTSIDE RECORDS SUMMARY | 2025-02-12 12:44 | XMS_ITS | Encounter Summary ---
Author Organization [employer] Address [address] [facility] [address] [place] [address] Care Team Providers Care Sheepskin Pickler Name Role Phone Unavailable Primary Care Provider Unavailabl e Reason for Visit * Reason Comments Med Refill Encounter Details Date Type Department Care Team (Late st Contact Info) Description 02/19/[address] [facility] MED[facility]INE [address] [place] [address] Dennis Deras MD [address] [place] [address] Social History Tobacco Use Types Packs/Day Years [...]
--- OUTSIDE RECORDS SUMMARY | 2025-02-12 12:44 | XMS_ITS | Clinical Summary ---
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 ([facility]) TEST BLOOD SUGAR TWICE DAILY 100 strip 11 08/10/2022 Active simvastatin (Zocor) 20 MG tablet TAKE ONE TABLET BY MOUTH EVERY EVENING 90 tablet 3 08/23/2022 Active PARoxetine (Paxil) 20 MG tabletIndication s:Recurrent major depressive disorder, in partial remission ([facility]) TAKE ONE TABLET BY MOUTH EVERY MORNING [...] (2 of 2 - PCV) 11/17/2013 11/17/2012 RSV Patients and Patients Aged 60 years or older (1 - 1-dose 75+ series) 2020 Zoster Vaccines (3 of 3) 04/17/2021 021, 06/17/2015 DTaP/Tdap/Td Vaccines (2 - T d or Tdap) 11/17/2022 11/17/2012 COVID-19 Vaccine (4 - 2024-2 6 season) 2025 07/22/2021, 08/27/2020, 07/30/2020 Influenza Vaccine (#1) 2025 02/20/2021 HIB Vaccines Aged Out No longer eligi [...] patient's age to complete this topic Meningococcal B Vaccine Aged Out No l onger eligible based on patient's age to complete [...]
--- OUTSIDE RECORDS SUMMARY | 2025-02-12 12:44 | XMS_ITS | Encounter Summary ---
Author Organization [employer] Address [address] [place] [address] [place] [address] Care Team Providers Care Case Resource Manager Name Role Phone Dennis Deras MD Primary Care Provider [phone]- [phone] Reason for Visit * Reason Comments Med Refill Encounter Details Date Type Department Care Team (Late st Contact Info) Description 07/25/2022 Refill [facility] MED[facility]INE [address] [place], [place] [phone] Dennis Deras MD [address] [place], [place] [phone] Social History Tobacco Use Types Packs/Day Years [...] on filedocumented in this encounter Care Teams Case Resource Manager Relationship Specialty Start Date End Date Dennis Deras MD [address] [place] [address] PCP - General Internal Medicine 05/30/13 12/23/22 documented as of this encounter
--- OUTSIDE RECORDS SUMMARY | 2025-02-12 12:44 | XMS_ITS | Encounter Summary ---
Author Organization [employer] Address [address] [place] [address] [address] [place] [address] Care Team Providers Care Credit Associate Name Role Phone Unavailable Primary Care Provider Unavailabl e Reason for Visit * Reason Comments Med Refill Encounter Details Date Type Department Care Team (Late st Contact Info) Description 08/25/2023 Refill [facility] MED & PEDS [address] [place] [address] Dennis Deras MD [address] [place] [address] Social History Tobacco Use Types Packs/Day Years [...]
--- OUTSIDE RECORDS SUMMARY | 2025-02-12 12:44 | XMS_ITS | Encounter Summary ---
Author Organization [employer] Address [address] [facility] [address] [place] [address] Care Team Providers Care Outreach Professional Name Role Phone Unavailable Primary Care Provider Unavailabl e Reason for Visit * Reason Comments Med Refill Encounter Details Date Type Department Care Team (Late st Contact Info) Description 05/26/2023 Refill [facility] [address] [place] [address] Dennis Deras MD [address] [place] [address] Recurrent major depressive disorder, in partial remission [...]
[2025-02-12 13:43] LABS: Microalbum/Creatinine Ratio Ur 75.8 ug/mg cr (<30)
== END 2025-02-12 10:25 | disposition home or self-care (01) ==
LOC: HO.LAB 10:24
PROVIDERS: PCP Internal Medicine; Visit Provider Internal Medicine
DX: J45.909 Unspecified asthma, uncomplicated (principal); E11.9 Type 2 diabetes mellitus without complications; E78.00 Pure hypercholesterolemia, unspecified; I10 Essential (primary) hypertension; R21 Rash and other nonspecific skin eruption
CPT/HCPCS: 36415; 80053; 80061; 82043; 82570; 83036; 85025

== ENCOUNTER 2025-03-27 06:50 | Day surgery (SDC) | payer OTHER, SELFPAY ==
[2025-03-25 13:11] VITALS: BMI 35.5
--- NOTE | 2025-03-25 13:11 | HO.ANESPROP2 ---
Documented by User: Laura Porter NP 03/25/25 13:30 HPI - Anesthesia Eval Consult details Narrative: 79 yr old female for Upper Endoscopy and Colonoscopy Asthma/COPD: ED visit 10/2024 for exacerbation [place] [facility] [place] Vtach on holter ? 2022: on amiodorone, last cardiology visit was 01/17/25, Dr. Mcelroy, note mentions atypical chest pain, stress test was done in 2020 showing no evidence of ischemia; cardiac MRI 02/2023, negative for cardiac amyloidosis or cardiomyopathy; cardiac cath 02/2023 unmarkable, echo in 2022 (*see below). EKG updated at 12/2024 visit. No change to medical tx was made. Anesthesia Pre-Procedure Meds Is the patient on any of the following meds?: GLP1/DPP4 PMFSH Active Problems Active Problems: All Active Problems Tremor (Acute) Restless leg syndrome (Acute) Lumbar degenerative disc disease (Acute) History of lumbar spinal fusion (Acute) Sacroiliac joint pain (Acute) Right hip pain (Acute) Lumbar spondylosis (Acute) Dyspnea on exertion (Acute) Right knee pain (Acute) Chest pain (Acute) Helicobacter pylori (H. pylori) (Acute) B12 deficiency (Acute) Physical exam (Acute) Mild recurrent major depression (Acute) Abdominal pain (Acute) Allergic reaction (Acute) Asthma-COPD overlap syndrome (Acute) Ganglion cyst of dorsum of left wrist (Acute) Skin lesion (Acute) Severe persistent allergic asthma (Acute) Environmental allergies (Acute) Urinary incontinence (Acute) Moderate asthma (Acute) Cognitive impairment (Acute) Unstable angina (Acute) Lichen sclerosus et atrophicus (Acute) Obese (Acute) Hypovitaminosis D (Acute) Diabetes mellitus (Acute) GERD (gastroesophageal reflux disease) (Acute) Dyslipidemia (Acute) Essential hypertension (Acute) Past Medical History Medical History Helicobacter pylori (H. pylori) B12 deficiency Physical exam Mild recurrent major depression Abdominal pain Allergic reaction Asthma-COPD overlap syndrome Ganglion cyst of dorsum of left wrist Skin lesion Urinary incontinence Moderate asthma Cognitive impairment Unstable angina Obese Hypovitaminosis D GERD (gastroesophageal reflux disease) Dyslipidemia Essential hypertension Memory loss History of anxiety Diabetes mellitus Asthma Family History Family History Father Diabetes Hypertension Mother Diabetes Hypertension Surgical History Surgical History Hx of colonoscopy H/O: hysterectomy H/O knee surgery History of bladder surgery Previous back surgery Social History Social History Housing: Apartment Are you a primary health care facility administrator to a significant other at home: No Do you presently have visiting nurse or other home services: Yes Alcohol intake: never Comment: no recent falls per daughter Patient Tobacco Use Status: Never used Tobacco e-Cigarette/Vaping Use: Never Used Second Hand Smoke Exposure: No Have you been hit, kicked, punched, or otherwise hurt by someone within the past year? If so, by whom?: No Are you DNR?: No Advance Directives: No Advance Directives Information Provided: Yes service: No Current occupational status: disabled Cognitive needs: Yes Hearing needs: No Vision needs: No Meds Allergies Allergy/AdvReac Type Severity Reaction Status Date / Time oxycodone (From Percocet) Allergy Intermediate rash Verified 03/27/25 07:38 pollen extracts (POLLEN) Allergy Intermediate ASTHMA Verified 03/27/25 07:38 peanut Allergy Unknown Rash Verified 03/27/25 07:38 corn Allergy Unknown Verified 03/27/25 07:38 fish derived (fish) Allergy Unknown Verified 03/27/25 07:38 soda Allergy Unknown Uncoded 03/27/25 07:38 Home Medications ?Medication ?Instructions ?Recorded ?Confirmed ?Last Taken ?Type albuterol sulfate 90 mcg/actuation 0 mcg inhalation 06/28/22 09/16/22 Unknown History aerosol inhaler bismuth subsalicylate 262 mg 2 tab PO QID 06/28/22 03/25/25 Unknown History chewable tablet (Stomach Relief) brimonidine 0.2 % eye drops 0 drp ophthalmic (eye) 06/28/22 09/16/22 Unknown History hydroxyzine HCl 25 mg tablet 0 mg PO 06/28/22 09/16/22 Unknown History latanoprost 0.005 % eye drops 0 drp ophthalmic (eye) 06/28/22 09/16/22 Unknown History dupilumab 300 mg/2 mL subcutaneous mg subcut 04/18/23 Unknown History pen injector (Dupixent) tacrolimus 0.1 % topical ointment 1 appl topical BID 04/18/23 03/25/25 Unknown History triamcinolone acetonide 0.025 % topical 04/18/23 Unknown History lotion ferrous fumarate 325 mg (106 mg 325 mg PO DAILY 07/07/23 03/25/25 Unknown History iron) tablet (Ferretts) meloxicam 7.5 mg tablet 7.5 mg PO DAILY 07/07/23 03/25/25 03/20/25 History metformin 500 mg tablet,extended 500 mg PO BID 07/07/23 03/25/25 Unknown History release 24 hr atorvastatin 20 mg tablet 20 mg PO DAILY 12/23/23 03/25/25 Unknown History losartan 100 mg tablet 100 mg PO DAILY 12/23/23 03/25/25 Unknown History amiodarone 200 mg tablet 200 mg PO DAILY 03/23/24 03/25/25 Unknown History prazosin 1 mg capsule 1 mg PO BEDTIME 03/23/24 03/25/25 Unknown History sertraline 50 mg tablet 50 mg PO DAILY 03/23/24 03/25/25 Unknown History fluocinonide 0.05 % topical cream appl topical 08/24/24 Unknown History Exam Pertinent Lab Results Pertinent Lab Results: Laboratory Tests 02/12/25 10:35 WBC 4.6 L RBC 4.53 Hgb 11.7 L Hct 36.5 L Plt Count 135 L Sodium 143 Potassium 3.8 Chloride 110 H Carbon Dioxide 24 BUN 22 H Creatinine 0.87 Narrative Narrative: EKG 12/2024 Sinus bradycardia with 1st deg A-V block Left axis deviation rate 56 ECHO 02/2023 Left ventricle poorly visualize. The left ventricular size is normal. The left ventricular wall thickness is mildly increased. The LV systolic function is normal. The left ventricular ejection fraction is 55-60%. Regional wall motion is difficult to assess due to poor endocardial definition. cannot rule out basal inferior hypokinesis on limited views. The left atrium is mildly dilated. The aortic valve appears mildly thickened. The aortic valve leaflet opening is normal. There is no aortic stenosis. There is no significant aortic regurgitation. The right ventricule is poorly visualized. The right ventricle is normal in size. Right ventricular systolic function appears preserved. Documented by User: Teresita Worley MD 03/27/25 08:19 [facility] Past Medical History Medical History Helicobacter pylori (H. pylori) B12 deficiency Physical exam Mild recurrent major depression Abdominal pain Allergic reaction Asthma-COPD overlap syndrome Ganglion cyst of dorsum of left wrist Skin lesion Urinary incontinence Moderate asthma Cognitive impairment Unstable angina Obese Hypovitaminosis D GERD (gastroesophageal reflux disease) Dyslipidemia Essential hypertension Memory loss History of anxiety Diabetes mellitus Asthma Family History Family History Father Diabetes Hypertension Mother Diabetes Hypertension Surgical History Surgical History Hx of colonoscopy H/O: hysterectomy H/O knee surgery History of bladder surgery Previous back surgery History of Problems with Anesthesia: No Social History Social History Housing: Apartment Are you a primary health care facility administrator to a significant other at home: No Do you presently have visiting nurse or other home services: Yes Alcohol intake: never Comment: no recent falls per daughter Patient Tobacco Use Status: Never used Tobacco e-Cigarette/Vaping Use: Never Used Second Hand Smoke Exposure: No Have you been hit, kicked, punched, or otherwise hurt by someone within the past year? If so, by whom?: No Are you DNR?: No Advance Directives: No Advance Directives Information Provided: Yes service: No Current occupational status: disabled Cognitive needs: Yes Hearing needs: No Vision needs: No Meds Allergies Allergy/AdvReac Type Severity Reaction Status Date / Time oxycodone (From Percocet) Allergy Intermediate rash Verified 03/27/25 07:38 pollen extracts (POLLEN) Allergy Intermediate ASTHMA Verified 03/27/25 07:38 peanut Allergy Unknown Rash Verified 03/27/25 07:38 corn Allergy Unknown Verified 03/27/25 07:38 fish derived (fish) Allergy Unknown Verified 03/27/25 07:38 soda Allergy Unknown Uncoded 03/27/25 07:38 Home Medications ?Medication ?Instructions ?Recorded ?Confirmed ?Last Taken ?Type albuterol sulfate 90 mcg/actuation 0 mcg inhalation 06/28/22 09/16/22 Unknown History aerosol inhaler bismuth subsalicylate 262 mg 2 tab PO QID 06/28/22 03/25/25 Unknown History chewable tablet (Stomach Relief) brimonidine 0.2 % eye drops 0 drp ophthalmic (eye) 06/28/22 09/16/22 Unknown History hydroxyzine HCl 25 mg tablet 0 mg PO 06/28/22 09/16/22 Unknown History latanoprost 0.005 % eye drops 0 drp ophthalmic (eye) 06/28/22 09/16/22 Unknown History dupilumab 300 mg/2 mL subcutaneous mg subcut 04/18/23 Unknown History pen injector (ZoutonsixGnamGnam) tacrolimus 0.1 % topical ointment 1 appl topical BID 04/18/23 03/25/25 Unknown History triamcinolone acetonide 0.025 % topical 04/18/23 Unknown History lotion ferrous fumarate 325 mg (106 mg 325 mg PO DAILY 07/07/23 03/25/25 Unknown History iron) tablet (Ferretts) meloxicam 7.5 mg tablet 7.5 mg PO DAILY 07/07/23 03/25/25 03/20/25 History metformin 500 mg tablet,extended 500 mg PO BID 07/07/23 03/25/25 Unknown History release 24 hr atorvastatin 20 mg tablet 20 mg PO DAILY 12/23/23 03/25/25 Unknown History losartan 100 mg tablet 100 mg PO DAILY 12/23/23 03/25/25 Unknown History amiodarone 200 mg tablet 200 mg PO DAILY 03/23/24 03/25/25 Unknown History prazosin 1 mg capsule 1 mg PO BEDTIME 03/23/24 03/25/25 Unknown History sertraline 50 mg tablet 50 mg PO DAILY 03/23/24 03/25/25 Unknown History fluocinonide 0.05 % topical cream appl topical 08/24/24 Unknown History Exam Airway Mallampati Class: III TM Dist: >3cm Neck ROM: Full Partial: Upper Loose/Missing/Broken Teeth: Yes and Upper Heart: irregularly irregular rhythm Lungs: CTA Assessment and Plan Assessment Anesthesia Assessment: Anesthesia Plan Discussed and Chart Reviewed Final Anesthetic Review History of Problems with Anesthesia: No NPO: Yes ASA Class: III Final Preanesthetic Review: Meds/Allgs Chart Reviewed, Consent Obtained/Reviewed and Anes Risks/Benef Reviewed Patient Risk: Intermediate Procedure Risk: Intermediate Anesthetic Plan Anesthetic Plan: MAC: Disposition: Standard PACU
[2025-03-27 07:11] VITALS: BMI 34.5
[2025-03-27 07:35] VITALS: BP 146/70; PULSE 60; RESP 18; TEMP 36.7; O2SAT 96
[2025-03-27 07:36] LABS: Glucose, Whole Blood 122 mg/dL (60-115)
[2025-03-27] MEDS: Lactated Ringers 1,000 ML 100 ML IVCONT (07:46)
--- NOTE | 2025-03-27 08:45 | P.HPSUR_ITS ---
Pre-Procedural Eval Section A - 24 Hr Update-Section A only Date of Service: 03/27/25 Section B - Complete if H&P > 30 days Chief Complaint: Chronic idiopathic constipation,gerd,epigastric Relevant Family History (Specify if Yes): No Relevant Social History: None Present Medications: see Short Stay Collaborative assessment Medical History: Significant History (Helicobacter pylori (H. pylori) B12 defici ency Physical exam Mild recurrent major depression Abdominal pain Allergic reaction Asthma-COPD overlap syndrome Ganglion cyst of dorsum of left wrist Skin lesion Urinary incontinence Moderate asthma Cognitive impairment Unstable angina Obese Hypovitaminosis) History of Previous Operations: Relevant previous surgery/procedure and date(s) (Hx of colonoscopy H/O: hysterectomy H/O knee surgery History of bladder surgery Previous back surgery) Allergies: Allergies Allergy/AdvReac Type Severity Reaction Status Date / Time oxycodone (From Percocet) Allergy Intermediate rash Verified 03/27/25 07:38 pollen extracts (POLLEN) Allergy Intermediate ASTHMA Verified 03/27/25 07:38 peanut Allergy Unknown Rash Verified 03/27/25 07:38 corn Allergy Unknown Verified 03/27/25 07:38 fish derived (fish) Allergy Unknown Verified 03/27/25 07:38 soda Allergy Unknown Uncoded 03/27/25 07:38 Review of Systems Sugical H&P ROS: Negative: Constitution, Cardiovascular, Respiratory, Neurological, Psychiatric, Hem-Onc, Allergic/Immunologic, Gastrointestinal, Genitourinary, Musculoskeletal, Integumentary, Endocrine and Eyes/Ears/Nose/Throat Exam Surgical H&P Exam: Normal: HEENT, Normal: Heart, Normal: Lungs, Normal: Extremities, Normal: Abdomen, Normal: Skin and Normal: Neurological Plan Diagnosis/Plan: Unchanged I have reviewed the history and physical and performed a pertinent physical examination on my patient. No changes have occurred unless specified. Time Spent With Patient Time: Total time managing care of this patient today ____ minutes.
--- NOTE | 2025-03-27 09:27 | HO.OPN-COLON ---
Colonoscopy Operative Note Operative Note Date of Service: 03/27/25 Narrative: Operative Information Procedure Description: EGD, Colonoscopy Indication: epigastric pain and screening Anesthesia: MAC FLEXIBLE TRANSORAL UPPER GASTROINTESTINAL ENDOSCOPY AND COLONOSCOPY PROCEDURE NOTE UPPER ENDOSCOPY Consent: Indications for the procedure and potential complications of bleeding, perforation, reaction to medications and missed diagnosis were discussed with the patient and informed consent was obtained. Instrument: Olympus GIF H 190 J mid size upper endoscope Monitoring: Vital signs and clinical assessment, continuous EKG monitoring, Pulse oximetry, Carbon Dioxide monitoring and blood pressure monitoring were done throughout the procedure. Procedure: The patient was placed in the left lateral decubitis position and pre-procedure medications were administered and a bite block was placed. The endoscope was inserted into the mouth and advanced under direct vision to the third part of duodenum. A careful inspection was made as the upper endoscope was withdrawn including a retroflexed examination of the proximal stomach; Findings and interventions are described below. Findings: Larynx:normal Esophagus: GE junction at 40 cm, diaphragm hiatus at 40 cm, irregualr Z line, mild esophagitis, bx taken from GEj and distal esophagus Stomach: patchy erythema . Biopsies were obtained. Grade 2 flap valve on retroflexed examination of the cardia. Duodenum: Normal bulb and descending duodenum, bx taken Intervention: Biopsies as noted above, COLONOSCOPY Instrument: Olympus variable stiffness pediatric scope 190L Colonoscopy Monitoring: Vital signs and clinical assessment, continuous EKG monitoring, Pulse oximetry, Carbon Dioxide monitoring and blood pressure monitoring were done throughout the procedure. Colon withdrawal time was 14 minutes. Procedure: The patient was placed in the left lateral decubitis position and pre-procedure medications were administered. After a digital rectal examination of the ano-rectum, the video colonoscope was inserted into the rectum and advanced through the colon to the cecum/TI. The colonoscope was slowly withdrawn in a retrograde panoramic fashion and the colon mucosa was carefully examined including a retroflexed view of the rectum. Findings and interventions are described below. Procedure Difficulty:moderate Findings: Terminal Ileum-normal Cecum: granular mucosa with melanosis coli, 3-4 mm sessile polyp removed with cold forceps, random bx also taken Ascending Colon: x 1 sessile polyp 5-6 mm removed with cold snare Transverse Colon -normal Descending Colon:normal Sigmoid Colon: x1 sessile polyp 6-8 mm removed with cold snare, x 1 semi pedunculated polyp 10-11 mm injected with epinpehrine and removed with cold snare with x 2 clips placed, moderate diverticulosis Rectum: Retroflexion with small internal hemorrhoids, grade I Anorectum - normal Colon preparation: [place] Bowel Preparation Scale Right colon; 1-2 Transverse colon: 2 Left colon; 2 (0 = Unprepared colon segment with mucosa not seen due to solid stool that cannot be cleared. 1 = Portion of mucosa of the colon segment seen, but other areas of the colon segment not well seen due to staining, residual stool and/or opaque liquid. 2 = Minor amount of residual staining, small fragments of stool and/or opaque liquid, but mucosa of colon segment seen well. 3 = Entire mucosa of colon segment seen well with no residual staining, small fragments of stool or opaque liquid) Impression and Post Procedure Diagnosis: Endoscopy Findings: gastritis Colonoscopy Findings: diverticulosis colon polyps x 4 internal hemorrhoids melanosis coli Plan: Await Pathology results Repeat Colonoscopy in 1 year or earlier if clinically indicated High fiber diet leaflet avoid straining at stool, epsom salts and sitz bath, anusol supps or cream Above findings were reviewed with the patient and relevant handouts were provided if indicated.
[2025-03-27 09:32] VITALS: BP 129/69; PULSE 56; RESP 23; TEMP 36.5; O2SAT 96
[2025-03-27 09:47] VITALS: BP 139/61; PULSE 55; RESP 17; TEMP 36.1; O2SAT 98
== END 2025-03-27 10:35 | disposition home or self-care (01) ==
PROVIDERS: PCP Internal Medicine; Visit Provider Internal Medicine Gastroenterology
PROC: (CPT 45380; principal; 2025-03-27 08:30)
DX: Z12.11 Encounter for screening for malignant neoplasm of colon (principal); K59.04 Chronic idiopathic constipation; R10.13 Epigastric pain; R14.0 Abdominal distension (gaseous); E11.9 Type 2 diabetes mellitus without complications; K21.00 Gastro-esophageal reflux disease with esophagitis, without bleeding; A04.8 Other specified bacterial intestinal infections; K64.0 First degree hemorrhoids; K63.89 Other specified diseases of intestine; D12.2 Benign neoplasm of ascending colon; D12.0 Benign neoplasm of cecum; D12.5 Benign neoplasm of sigmoid colon; K63.5 Polyp of colon
CPT/HCPCS: 45380; 45385; 45381; 43239; 82947; 88305; 88313; 88342; J0168; J2003; J2704

== ENCOUNTER → 2025-03-27 06:50 | Outpatient (BNV) | payer OTHER, SELFPAY | PROVIDERS: PCP Internal Medicine; Visit Provider Internal Medicine Gastroenterology | DX: Z12.11 Encounter for screening for malignant neoplasm of colon (principal); K63.89 Other specified diseases of intestine; D12.0 Benign neoplasm of cecum; K64.0 First degree hemorrhoids; D12.2 Benign neoplasm of ascending colon; D12.5 Benign neoplasm of sigmoid colon; K57.30 Diverticulosis of large intestine without perforation or abscess without bleeding; R10.13 Epigastric pain; K29.70 Gastritis, unspecified, without bleeding; K20.90 Esophagitis, unspecified without bleeding | CPT/HCPCS: 43239; 45380; 45381; 45385 ==

== ENCOUNTER 2025-05-08 10:17 | Outpatient (AMB) | payer OTHER, SELFPAY ==
[2025-05-08 10:28] VITALS: BP 152/77; PULSE 60; O2SAT 96; BMI 36.6
--- NOTE | 2025-05-08 10:28 | MHC.OFFVIS ---
Vital Signs 05/08/25 10:28 Height 4 ft 11 in Weight 181 lb BMI 36.6 BP 152/77 H Blood Pressure Location Lt brachial Position Sitting Pulse 60 Pulse Source Pulse Oximeter Pulse Oximetry (%) 96 Oxygen Delivery Method Room Air Intake Visit Reasons: copd Claim Taker Required: Yes Claim Taker Name: Ramona Guthrie Erum Information Interpreted: non-clinical & clinical Allergies oxycodone (From Percocet) Allergy (Intermediate, Verified 05/08/25 10:31) rash pollen extracts (POLLEN) Allergy (Intermediate, Verified 05/08/25 10:31) ASTHMA peanut Allergy (Unknown, Verified 05/08/25 10:31) Rash corn Allergy (Verified 05/08/25 10:31) Unknown fish derived (fish) Allergy (Verified 05/08/25 10:31) Unknown soda Allergy (Uncoded 03/27/25 07:38) Unknown HPI HPI copd: Details: 79-year-old lady, lifetime nonsmoker, followed for severe persistent allergic asthma, environmental allergies, and chronic cough.? Patient continues on Trelegy and albuterol MDI with good control of her underlying symptoms. She has been using Singulair to control her allergy symptoms. 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 She is also complaining of cough productive of whitish to yellowish sputum for 3 weeks for which she has been started on Augmentin for the last 4 days with no improvement. [facility] Medical History Helicobacter pylori (H. pylori) B12 deficiency Physical exam Mild recurrent major depression Abdominal pain Allergic reaction Asthma-COPD overlap syndrome Ganglion cyst of dorsum of left wrist Skin lesion Urinary incontinence Moderate asthma Cognitive impairment Unstable angina Obese Hypovitaminosis D GERD (gastroesophageal reflux disease) Dyslipidemia Essential hypertension Memory loss History of anxiety Diabetes mellitus Asthma Surgical History Hx of colonoscopy H/O: hysterectomy H/O knee surgery History of bladder surgery Previous back surgery Family History Father Diabetes Hypertension Mother Diabetes Hypertension Social History Housing: Apartment Are you a primary medicare contact specialist to a significant other at home: No Do you presently have visiting nurse or other home services: Yes Alcohol intake: never Comment: no recent falls per daughter Patient Tobacco Use Status: Never used Tobacco e-Cigarette/Vaping Use: Never Used Second Hand Smoke Exposure: No service: No Current occupational status: disabled Cognitive needs: Yes Hearing needs: No Vision needs: No Review of Systems Const Denies daytime sleepiness, Denies excessive sweating, Denies fatigue, Denies fever(s), Denies lethargy, Denies malaise, Denies night sweats, Denies snoring and Denies weight loss Eyes Denies blurry vision and Denies itchy eyes ENT Denies nasal congestion, Denies post nasal drip, Denies sinus pain, Denies sinus pressure and Denies other ( Thrush) Card Denies chest pain, Denies pedal edema, Denies dyspnea, Reports dyspnea on exertion, Denies orthopnea and Denies paroxysmal nocturnal dyspnea Resp Reports cough, Denies hemoptysis, Reports excessive phlegm production, Denies dyspnea, Reports dyspnea on exertion, Denies snoring and Denies wheezing GI Denies abdominal pain and Denies heartburn Musc Denies myalgias, Denies arthralgias and Denies joint swelling Skin/Breast Denies rash Neuro Denies memory loss and Denies seizure-like activity Psych Denies abnormal sleep pattern, Denies anxiety and Denies memory loss Endo Denies excessive sweating, Denies fatigue and Denies heat intolerance Yvon/Lymph Denies easy bruising Aller/Immun Denies itchy eyes, Denies seasonal rhinorrhea and Denies wheezing Physical Exam Vital Signs: Last Vital Signs Pulse 60 05/08/25 10:28 BP 152/77 H 05/08/25 10:28 Pulse Ox 96 05/08/25 10:28 Oxygen Delivery Method Room Air 05/08/25 10:28 BMI result Body Mass Index 36.6 Const General: no acute distress and alert Nutritional Appearance: obese Orientation/consciousness: Other orientation findings ( oriented) HEENT Head: Yes atraumatic Eyes General: appearance normal, both eyes and all related structures Sclerae: sclerae normal EOM: EOMs intact bilaterally Neck Neck: Yes supple Lymphatic: no lymphadenopathy noted Resp Effort & Inspection: normal respiratory effort and no use of accessory muscles Auscultation: clear to auscultation bilaterally Cardio Rate: regular rate Rhythm: regular rhythm Heart sounds: no gallops, no murmurs and no rubs Skin General skin exam: other ( warm) Extrem General: No clubbing, No cyanosis and No edema Assessment & Plan Assessment & Plan (1) Moderate asthma: Code(s): J45.909 - Unspecified asthma, uncomplicated Category: Medical Qualifiers: Asthma persistence: persistent Asthma complication type: uncomplicated Qualified Code(s): J45.40 - Moderate persistent asthma, uncomplicated Plan: Baseline controlled on Trelegy and albuterol MDI/nebs. Continue current regimen. Will switch Augmentin to Levaquin for an acute bronchitis. (2) Environmental allergies: Code(s): Z91.09 - Other allergy status, other than to drugs and biological substances Category: Medical Plan: Continue Singulair. Patient's district captain is also changing her Dupixent to what appears to be Xolair. Medications: New levofloxacin 750 mg PO DAILY 7 tabs 0RF Coding Level of Care Code Est Pt Level 4 (94088) Diagnoses Moderate persistent asthma without complication J45.40 Asthma persistence: persistent Asthma complication type: uncomplicated Environmental allergies Z91.09
--- OUTSIDE RECORDS SUMMARY | 2025-05-08 12:40 | XMS_ITS | Encounter Summary ---
Author Organization [employer] Address [address] [place] [address] Care Team Providers Care Waterproofer Helper Name Role Phone Unavailable Primary Care Provider Unavailabl e Reason for Visit * Reason Comments Med Refill Encounter Details Date Type Department Care Team (Late st Contact Info) Description 05/26/2023 Refill [facility] [address] [place] [address] Dennis Deras MD [address] [place] [address] Recurrent major depressive disorder, in partial remission [...]
--- OUTSIDE RECORDS SUMMARY | 2025-05-08 12:40 | XMS_ITS | Clinical Summary ---
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
--- OUTSIDE RECORDS SUMMARY | 2025-05-08 12:40 | XMS_ITS | Encounter Summary ---
Author Organization [employer] Address [address] [place] [address] [address] [place] [address] Care Team Providers Care Electrical Mechanic Name Role Phone Unavailable Primary Care Provider Unavailabl e Reason for Visit * Reason Comments Med Refill Encounter Details Date Type Department Care Team (Late st Contact Info) Description 08/25/2023 Refill [facility] [address] [place] [address] Dennis Deras MD [address] [place] [address] Social History Tobacco Use Types Packs/Day Years [...]
--- OUTSIDE RECORDS SUMMARY | 2025-05-08 12:40 | XMS_ITS | Encounter Summary ---
Author Organization [employer] Address [address] [place] [address] [address] [place] [address] Care Team Providers Care Diagnostic Tech Name Role Phone Dennis Deras MD Primary Care Provider [phone]- [phone] Reason for Visit * Reason Comments Med Refill Encounter Details Date Type Department Care Team (Late st Contact Info) Description 08/26/2022 Refill [facility]EDS [address] [place], [place] [phone] Debra Nye MD [address] [place] [address] Unspecified asthma, uncomplicated Social History Tobacco Use [...] uncomplicated documented in this encounter Care Teams Diagnostic Tech Relationship Specialty Start Date End Date Dennis Deras MD [address] [place] [address] PCP - General Internal Medicine 05/30/13 12/23/22 documented as of this encounter
--- OUTSIDE RECORDS SUMMARY | 2025-05-08 12:40 | XMS_ITS | Encounter Summary ---
Author Organization [employer] Address [address] [facility] [address] [place] [address] Care Team Providers Care Magnetic Observer Name Role Phone Unavailable Primary Care Provider Unavailabl e Reason for Visit * Reason Comments Med Refill Encounter Details Date Type Department Care Team (Late st Contact Info) Description 02/19/2023 Refill [facility] MEDICINE [address] [place] [address] Dennis Deras MD [address] [place] [address] Social History Tobacco Use Types Packs/Day Years [...]
--- OUTSIDE RECORDS SUMMARY | 2025-05-08 12:40 | XMS_ITS | Encounter Summary ---
Author Organization [employer] Address [address] [place] [address] [place] [address] Care Team Providers Care Medical Center Manager Name Role Phone Dennis Deras MD Primary Care Provider [phone]- [phone] Reason for Visit * Reason Comments Med Refill Encounter Details Date Type Department Care Team (Late st Contact Info) Description 07/25/2022 Refill [facility] MEDICINE [address] [place], [place] [phone] Dennis Deras MD [address] [place], [place] [phone] Social History Tobacco Use Types Packs/Day Years [...] on filedocumented in this encounter Care Teams Medical Center Manager Relationship Specialty Start Date End Date Dennis Deras MD [address] [place] [address] PCP - General Internal Medicine 05/30/13 12/23/22 documented as of this encounter
== END 2025-05-08 10:44 | disposition home or self-care (01) ==
LOC: HO.HPS 10:18
PROVIDERS: PCP Internal Medicine; Visit Provider Internal Medicine Pulmonary Disease
DX: J45.40 Moderate persistent asthma, uncomplicated (principal); Z91.09 Other allergy status, other than to drugs and biological substances
CPT/HCPCS: 99214

== ENCOUNTER → 2025-05-08 10:17 | Outpatient (BNVA) | payer OTHER, SELFPAY | PROVIDERS: PCP Internal Medicine; Visit Provider Internal Medicine Pulmonary Disease | DX: J45.40 Moderate persistent asthma, uncomplicated (principal); Z90.09 Acquired absence of other part of head and neck | CPT/HCPCS: 99212 ==